=== PATIENT | female | born 1940 | race Caucasian/White ===

== ENCOUNTER 2019-03-14 18:31 | Emergency (ER) | payer OTHER ==
--- OUTSIDE RECORDS SUMMARY | 2019-03-14 18:34 | XMS REPORT | Clinical Summary ---
:1940 Author Organization [facility] Address [address] [place] [address] Care Team Providers Name Role Phone Albino Hancock MD Primary Care Provider Allergies Active Allergy Reactions Severity Noted Date Comments Beef Containing Products 08/09/2018 [place] 08/09/2018 Lactase 08/09/2018 Gluten GI Intolerance 08/09/2018 Shrimp 08/09/2018 Medications Medication Sig Dispensed Refills Start End Status Date Date levothyroxine Take 50 mcg 0 Active (SYNTHROID, LEVOXYL) 50 by mouth mcg tablet daily. clopidogrel (PLAVIX) 75 Take 75 mg by 0 Active mg tablet mouth daily. omega-3 acid ethyl Take 1 g by 0 Active esters (LOVAZA) 1 gram mouth 2 (two) capsule times a day. simvastatin (ZOCOR) 40 Take 40 mg by 0 Active MG tablet mouth nightly. escitalopram (LEXAPRO) Take 5 mg by 0 Active 5 MG tablet mouth every evening. ALPRAZolam (XANAX) 0.25 Take 0.25 mg 0 Active MG tablet by mouth nightly as needed for anxiety. loratadine (CLARITIN) Take 10 mg by 0 Active 10 mg tablet mouth daily. acetaminophen-codeine Take 1 tablet 0 Active (TYLENOL WITH CODEINE by mouth #3) 300-30 mg per every 4 tablet (four) hours as needed for moderate pain. gabapentin (NEURONTIN) Take 100 mg 0 Active 100 mg capsule by mouth daily as needed. Lactobacillus Take 1 0 Active acidophilus (PROBIOTIC capsule by ORAL) mouth 2 (two) times a day. fesoterodine (TOVIAZ) 4 Take 1 tablet 0 Active mg tablet extended by mouth release 24 hr every morning. glucosamine Take 1 tablet 0 Active HCl/chondroitin sainz by mouth 2 (GLUCOSAMINE-CHONDROITI (two) times a N ORAL) day. calcium carbonate Take 1,200 mg 0 Active (OS-JEN) 600 mg calcium by mouth (1,500 mg) tablet daily. alendronate (FOSAMAX) Take 70 mg by mouth every 7 days. Take in the morning with a full glass of water on an empty stomach, do NOT take anything else by mouth or lie down for the next 30 min. 0 Active 70 MG tablet On metoprolol succinate XL Take 50 mg by 0 Active (TOPROL-XL) 50 mg 24 hr mouth every tablet evening. multivitamin Take 1 tablet 0 Active (THERAGRAN) tablet by mouth daily. VITAMIN B COMPLEX ORAL Take 1 0 Active capsule by 5 mouth daily. magnesium oxide 500 mg Take 1 tablet 0 Active tablet by mouth daily. acetaminophen (TYLENOL) Take 500 mg 0 Discontinued 500 MG tablet by mouth 019 (Error) every 6 (six) hours as needed for mild pain. Pt no longer takes hydroCHLOROthiazide Take 25 mg by 0 Discontinued (HYDRODIURIL) 25 MG mouth daily. 019 (Stop Taking at tablet Discharge) lisinopril Take 40 mg by 0 Discontinued (PRINIVIL,ZESTRIL) 40 mouth daily. 019 (Stop Taking at mg tablet Discharge) microfibrillar collagen Apply 0 Discontinued (AVITENE) powder topically as 019 (Med List needed for Cleanup) wound care. metoprolol tartrate Take 50 mg by 0 Discontinued (LOPRESSOR) 50 mg mouth 2 (two) 019 (Med List tablet times a day. Cleanup) tiZANidine (ZANAFLEX) 2 Take 2 mg by 0 Discontinued MG tablet mouth every 8 019 (Med List (eight) hours Cleanup) as needed for muscle spasms. acyclovir (ZOVIRAX) 800 Take 800 mg 0 Discontinued MG tablet by mouth 2 019 (Med List (two) times a Cleanup) day. clonIDINE (CATAPRES) Take 0.1 mg 0 Discontinued 0.1 MG tablet by mouth 019 (Stop Taking at daily as Discharge) needed for high blood pressure. meclizine (ANTIVERT) Take 12.5 mg 0 Discontinued 12.5 mg tablet by mouth 3 019 (Error) (three) times a day as needed for dizziness. Pt no longer takes tiZANidine (ZANAFLEX) 4 Take 4 mg by 0 Discontinued MG tablet mouth nightly 019 (Stop Taking at as needed Discharge) (sleep). lisinopril Take 1 tablet 30 tablet 0 (PRINIVIL,ZESTRIL) 5 mg (5 mg total) 9 019 tablet by mouth daily for 30 days. Active Problems Problem Noted Date Syncope 08/09/2018 Vertigo 02/20/2017 Essential hypertension 02/20/2017 Encounters Date Type Specialty Care Team Description 08/11/2018 Patient Outreach Quality Jolanta Joy RN 08/09/2018 - Hospital Encounter General Internal [facility] Syncope, unspecified syncope type (Primary Dx); 08/11/2018 Medicine [place], Closed fracture of one rib of left side , initial encounter Svetlana Miguel MD 08/09/2018 Travel after 03/13/2018 Social History Tobacco Use Types Packs/Day Years Used Date Never Smoker Smokeless Tobacco: Never Used Alcohol Use Drinks/Week oz/Week Comments No Sex Assigned at Date Recorded Not on file Job Start Date Occupation Industry Not on file Not on file Not on file Travel History Travel Start Travel End No recent travel history available. Last Filed Vital Signs Vital Sign Reading Time Taken Comments Blood Pressure 129/54 08/11/2018 3:00 PM SHOTBLAST OPERATOR Pulse 58 08/11/2018 3:00 PM SHOTBLAST OPERATOR Temperature 36.6 C (97.8 F) 08/11/2018 11:41 AM SHOTBLAST OPERATOR Respiratory Rate 18 08/11/2018 11:41 AM SHOTBLAST OPERATOR Oxygen Saturation 94% 08/11/2018 11:41 AM SHOTBLAST OPERATOR Inhaled Oxygen Concentration - - Weight 60.8 kg (134 lb) 08/09/2018 6:42 PM SHOTBLAST OPERATOR Height 162.6 cm (5' 4") 08/09/2018 6:42 PM SHOTBLAST OPERATOR Body Mass Index 23 08/09/2018 6:42 PM SHOTBLAST OPERATOR Plan of Treatment Health Maintenance Due Date Last Done Comments SHINGLES VACCINES (#1) 1988 65+ PNEUMOCOCCAL VACCINE (2 of 2 - 2003 05/31/2015, 07/01/2002 PPSV23) INFLUENZA VACCINE 01/29/2019 04/12/2017, 03/16/2016, 03/01/2015 Procedures Procedure Name Priority Date/Time Associated Comments Diagnosis ESTIMATED GFR Routine 08/11/2018 3:49 Results for this AM SHOTBLAST OPERATOR procedure are in the results section. COMPREHENSIVE METABOLIC Routine 08/11/2018 3:49 Results for this PANEL AM SHOTBLAST OPERATOR procedure are in the results section. HC COMPLETE BLD COUNT Routine 08/11/2018 3:49 Results for this W/AUTO DIFF AM SHOTBLAST OPERATOR procedure are in the results section. ESTIMATED GFR Routine 08/10/2018 4:32 Results for this AM SHOTBLAST OPERATOR procedure are in the results section. COMPREHENSIVE METABOLIC Routine 08/10/2018 4:32 Results for this PANEL AM SHOTBLAST OPERATOR procedure are in the results section. HC COMPLETE BLD COUNT Routine 08/10/2018 4:32 Results for this W/AUTO DIFF AM SHOTBLAST OPERATOR procedure are in the results section. ECG 12-LEAD Routine 08/09/2018 8:49 Results for this PM SHOTBLAST OPERATOR procedure are in the results section. TROPONIN Timed 08/09/2018 7:19 Results for this PM SHOTBLAST OPERATOR procedure are in the results section. URINALYSIS SCREEN AND Routine 08/09/2018 6:25 Results for this MICROSCOPY, WITH REFLEX PM SHOTBLAST OPERATOR procedure are in TO CULTURE the results section. URINE CULTURE Routine 08/09/2018 6:25 Results for this PM SHOTBLAST OPERATOR procedure are in the results section. ECG 12-LEAD Routine 08/09/2018 4:38 Results for this PM [employer]OTBLAST OPERATOR procedure are in the results section. TROPONIN Timed 08/09/2018 4:15 Results for this PM SHOTBLAST OPERATOR procedure are in the results section. ECG ED PRELIMINARY Routine 08/09/2018 11:53 Results for this INTERPRETATION AM SHOTBLAST OPERATOR procedure are in the results section. XR RIBS W PA CHEST LEFT STAT 08/09/2018 11:22 Results for this AM SHOTBLAST OPERATOR procedure are in the results section. CT CERVICAL SPINE WO STAT 08/09/2018 11:00 Results for this CONTRAST AM SHOTBLAST OPERATOR procedure are in the results section. CT HEAD WO CONTRAST STAT 08/09/2018 11:00 Results for this AM SHOTBLAST OPERATOR procedure are in the results section. PARTIAL THROMBOPLASTIN Routine 08/09/2018 10:35 Results for this TIME (PTT) AM SHOTBLAST OPERATOR procedure are in the results section. PROTHROMBIN TIME WITH Routine 08/09/2018 10:35 Results for this INR AM SHOTBLAST OPERATOR procedure are in the results section. ESTIMATED GFR Routine 08/09/2018 10:35 Results for this AM SHOTBLAST OPERATOR procedure are in the results section. TROPONIN Routine 08/09/2018 10:35 Results for this AM SHOTBLAST OPERATOR procedure are in the results section. COMPREHENSIVE METABOLIC Routine 08/09/2018 10:35 Results for this PANEL AM SHOTBLAST OPERATOR procedure are in the results section. HC COMPLETE BLD COUNT Routine 08/09/2018 10:35 Results for this W/AUTO DIFF AM SHOTBLAST OPERATOR procedure are in the results section. ECG 12-LEAD STAT 08/09/2018 10:21 Results for this AM SHOTBLAST OPERATOR procedure are in the results section. after 03/13/2018 Results Estimated GFR (08/11/2018 3:49 AM SHOTBLAST OPERATOR)Only the most recent of3 resultswithin the time period is included. [facility] Estimated GFR 86 mL/min/1.73 [facility] Comment: m2 [facility] CatergoryUnitsInterpretation G1 >=90 Normal or high G2 60-89Mildly decreased [id number] to moderately decreased [id number] to severely decreased G4 15-29Severely decreased G5 <15Kidney failure The eGFR was calculated using the Chronic Kidney Disease Epidemiology Collaboration (CKD-EPI) equation. Interpretation is based on recommendations of the National Kidney Foundation-Kidney Disease Outcomes Quality Initiative (NKF-KDOQI) published in 2014. Specimen Plasma specimen Performing Organization Address City/State/Zipcode Phone Number [facility] DEPARTMENT OF PATHOLOGY AND [address] [place] [address] [facility] [address] [place] [address] CBC with platelet and differential (08/11/2018 3:49 AM SHOTBLAST OPERATOR)Only the most recent of3 resultswithin the time period is included. [facility] WBC 6.65 4.50 - 11.00 [facility] k/uL [facility] RBC 3.61 (L) 4.20 - 5.50 [facility] m/uL [facility] HGB 11.4 (L) 12.0 - 16.0 [facility] g/dL [facility] HCT 34.9 (L) 37.0 - 47.0 % [facility] MCV 96.7 82.0 - 100.0 fL [facility] MCH 31.6 27.0 - 34.0 pg [facility] MCHC 32.7 31.0 - 37.0 [facility] g/dL [facility] RDW - SD 45.2 37.0 - 55.0 fL [facility] MPV 11.2 8.8 - 13.2 fL [facility] Platelet count 209 150 - 400 k/uL [facility] Neutrophils 62.6 39.0 - 69.0 % [facility] Lymphocytes 26.5 25.0 - 45.0 % [facility] Monocytes 9.5 0.0 - 10.0 % [facility] Eosinophils 0.9 0.0 - 5.0 % [facility] Basophils 0.3 0.0 - 1.0 % [facility] Immature granulocytes 0.2 0.0 - 1.0 % [facility] Specimen Blood Performing Organization Address City/State/Zipcode Phone Number [facility] OF [facility] [address] [place] [address] [facility] [address] [place] [address] Comprehensive metabolic panel (08/11/2018 3:49 AM SHOTBLAST OPERATOR)Only the most recent of3 resultswithin the time period is included. Sodium 135 135 - 148 mEq/L [facility] Potassium 4.3 3.5 - 5.0 mEq/L [facility] Chloride 100 99 - 109 mEq/L [facility] CO2 24 24 - 31 mEq/L [facility] Anion gap 11@ANIO 7 - 15 mEq/L [facility] BUN 10 8 - 24 mg/dL [facility] Creatinine 0.60 0.50 - 0.90 [facility] mg/dL [facility] Glucose 95 65 - 99 mg/dL [facility] Calcium 8.4 (L) 8.6 - 10.6 mg/dL [facility] Protein 6.0 (L) 6.3 - 8.2 g/dL [facility] Albumin 2.9 (L) 3.5 - 5.0 g/dL [facility] A/G ratio 0.9 0.7 - 3.8 [facility] Alkaline phosphatase 41 30 - 115 U/L [facility] AST 33 15 - 46 U/L [facility] ALT 13 10 - 55 U/L [facility] Total bilirubin 0.3 0.2 - 1.2 mg/dL [facility] Specimen Plasma specimen Performing Organization Address City/State/Zipcode Phone Number [facility] DEPARTMENT OF PATHOLOGY AND [id number] [place] [address] [facility] [address] [place] [address] ECG 12 lead (08/09/2018 8:49 PM SHOTBLAST OPERATOR)Only the most recent of3 resultswithin the time period is included. Pathologist [facility] Ventricular rate 64 [facility] Atrial rate 64 [facility] [place] interval 182 [facility] QRSD interval 144 [facility] QT interval 464 [facility] QTC interval 478 [facility] P axis 1 75 [facility] QRS axis 1 -11 [facility] T wave axis 136 [facility] EKG impression Normal sinus [facility] rhythm-Possible Left atrial enlargement-Left bundle branch block-Abnormal ECG-In automated comparison with ECG of 09-AUG-2018 16:38,-No significant change was found- Specimen Narrative Performed At Performing Organization Address City/[facility]/Zipcode Phone Number [facility] MUSE [address] [place] [address] Troponin (08/09/2018 7:19 PM SHOTBLAST OPERATOR)Only the most recent of3 resultswithin the time period is included. [facility] Troponin <0.10 0.00 - 0.10 [facility] Comment: ng/mL [facility] 0.11 - 1.49 ng/mlMay indicate increased risk of acute coronary syndrome. >=1.5 ng/mlConsistent with acute myocardial infarction. The diagnostic value of a single normal or non-diagnostic result is questionable.Serial samples at 2-6 hour intervals are required to rule out acute myocardial injury. Specimen Plasma specimen Performing Organization Address City/State/Zipcode Phone Number [facility] DEPARTMENT OF PATHOLOGY AND [address] [place] [address] [facility] [address] [place] [address] Urinalysis screen and microscopy, with reflex to culture (08/09/2018 6:25 PM SHOTBLAST OPERATOR) Pathologist [facility] Specimen site Clean catch [facility] Color, UA Yellow [facility] Appearance, UA Hazy [facility] Specific gravity, 1.010 1.001 - 1.035 [facility] pH, UA 6.0 5.0 - 8.5 [facility] Protein, UA Negative Negative [facility] Glucose, UA Negative Negative [facility] Ketones, UA Trace (A) Negative [facility] Bilirubin, UA Negative Negative [facility] Blood, UA Negative Negative [facility] Nitrite, UA Negative Negative [facility] Urobilinogen, UA <2.0 <2.0 [facility] Leukocyte esterase, Negative Negative [facility] WBC, UA 1 0 - 4 /HPF [facility] RBC, UA 3 0 - 5 /HPF [facility] Bacteria, UA None seen None seen [facility] Yeast, UA None seen [facility] Yeast with None seen [facility] pseudohyphae, [facility] Specimen Urine Performing Organization Address City/[facility] Phone Number [facility] DEPARTMENT OF PATHOLOGY AND [address] [place] [address] Urine culture (08/09/2018 6:25 PM SHOTBLAST OPERATOR) Urine culture SEE COMMENTComment: [facility] Bacteriuria screen [facility] negative. Specimen Performing Organization Address City/[facility] Phone Number [facility] DEPARTMENT OF PATHOLOGY AND [id number] [place] [address]. [place] [address] ECG ED Preliminary Interpretation - Not an Order (08/09/2018 11:53 AM SHOTBLAST OPERATOR) Narrative Performed At Ruma Pendleton MD 08/11/20188:04 AM ECG ED Preliminary Interpretation - Not an Order Performed by: Ruma Pendleton MD Authorized by: Ruma Pendleton MD ECG reviewed by ED Physician in the absence of a parts clerk: yes Rate: ECG rate:59 Rhythm: Rhythm: sinus bradycardia QRS: QRS axis:Normal QRS intervals:Normal Conduction: Conduction: abnormal Abnormal conduction: complete LBBB ST segments: ST segments:Non-specific T waves: T waves: non-specific XR Ribs W Pa Chest Left (08/09/2018 11:22 AM SHOTBLAST OPERATOR) Specimen Narrative Performed At EXAMINATION:XR RIBS W PA CHEST LEFT [facility] CLINICAL HISTORY:fall trauma COMPARISON:none. IMPRESSION: 1.The left lateral seventh rib show a mild area of cortical step off, probably indicating a nondisplaced fracture and should be correlated. No other rib fractures are noted. No pneumothorax seen. 2.Lungs are clear. There is osteopenia. Aortic vascular calcifications are seen. [facility]-[id number] Procedure Note Hm Interface, Radiology Results Incoming - 08/09/2018 11:30 AM SHOTBLAST OPERATOR EXAMINATION: XR RIBS W PA CHEST LEFT CLINICAL HISTORY: fall trauma COMPARISON: none. IMPRESSION: 1. The left lateral seventh rib show a mild area of cortical step off, probably indicating a nondisplaced fracture and should be correlated. No other rib fractures are noted. No pneumothorax seen. 2. Lungs are clear. There is osteopenia. Aortic vascular calcifications are seen. [facility]-[id number] Performing Organization Address City/State/Zipcode Phone Number [facility] [address] [place] [address] CT Cervical Spine Wo Contrast (08/09/2018 11:00 AM SHOTBLAST OPERATOR) Specimen Narrative Performed At EXAMINATION:CT CERVICAL SPINE WO CONTRAST [facility] CLINICAL HISTORY:trauma TECHNIQUE: Multiple axial CT images of the cervical spine are obtained without the use of intravenous contrast. Coronal and sagittal 3-D reconstructions are obtained. CT scans are performed using radiation dose reduction techniques.Technical factors are evaluated and adjusted to ensure appropriate moderation of exposure.Automated dose management technology is applied to adjust radiation exposure while achieving a diagnostic quality image. COMPARISON:None. DOSE (DLP):246.10 mGy.cm. DISCUSSION: Retrolisthesis of C3 over C4. Alignment of the anterior, posterior and spinolaminar lines of the cervical spine are within normal limits. There is no evidence of fractures, dislocations, or destructive bony lesions. Negative for fracture of occipital condyles or dislocation of atlantooccipital joints. The pre and paravertebral soft tissues are unremarkable. Ligament, spinal cord, and/or vascular abnormalities cannot be excluded on the basis of this examination. Multilevel degenerative changes are noted within the cervical spine. Evaluation of individual levels demonstrates the following findings: - C2-C3: Loss of disc height. Both facet arthropathy. The central canal and neuroforamina are patent. - C3-C4: Loss of disc height and retrolisthesis of C3 over C4. Bilateral uncovertebral and facet arthropathy resulting in moderate neural foraminal stenosis. The central canal is patent. - C4-C5: Anterior spondylosis. Central canal and neuroforamina are patent. - C5-C6: Anterior spondylosis. Right uncovertebral and facet arthropathy resulting in mild narrowing of the right neural foramen. The central canal left neuroforamen are patent. - C6-C7: Anterior spondylosis. The central canal and neuroforamina are patent. - C7-T1: Right facet arthropathy. The central canal and neuroforamina are patent IMPRESSION: 1.No CT evidence for acute trauma. 2.Multilevel degenerative changes, uncovertebral and facet arthropathy resulting in mild neural foraminal stenosis. 3. Degenerative retrolisthesis of C3 over C4. [facility]-[id number] Procedure Note Hm Interface, Radiology Results Incoming - 08/09/2018 11:18 AM SHOTBLAST OPERATOR EXAMINATION: CT CERVICAL SPINE WO CONTRAST CLINICAL HISTORY: trauma TECHNIQUE: Multiple axial CT images of the cervical spine are obtained without the use of intravenous contrast. Coronal and sagittal 3-D reconstructions are obtained. CT scans are performed using radiation dose reduction techniques. Technical factors are evaluated and adjusted to ensure appropriate moderation of exposure. Automated dose management technology is applied to adjust radiation exposure while achieving a diagnostic quality image. COMPARISON: None. DOSE (DLP): 246.10 mGy.cm. DISCUSSION: Retrolisthesis of C3 over C4. Alignment of the anterior, posterior and spinolaminar lines of the cervical spine are within normal limits. There is no evidence of fractures, dislocations, or destructive bony lesions. Negative for fracture of occipital condyles or dislocation of atlantooccipital joints. The pre and paravertebral soft tissues are unremarkable. Ligament, spinal cord, and/or vascular abnormalities cannot be excluded on the basis of this examination. Multilevel degenerative changes are noted within the cervical spine. Evaluation of individual levels demonstrates the following findings: - C2-C3: Loss of disc height. Both facet arthropathy. The central canal and neuroforamina are patent. - C3-C4: Loss of disc height and retrolisthesis of C3 over C4. Bilateral uncovertebral and facet arthropathy resulting in moderate neural foraminal stenosis. The central canal is patent. - C4-C5: Anterior spondylosis. Central canal and neuroforamina are patent. - C5-C6: Anterior spondylosis. Right uncovertebral and facet arthropathy resulting in mild narrowing of the right neural foramen. The central canal left neuroforamen are patent. - C6-C7: Anterior spondylosis. The central canal and neuroforamina are patent. - C7-T1: Right facet arthropathy. The central canal and neuroforamina are patent IMPRESSION: 1. No CT evidence for acute trauma. 2. Multilevel degenerative changes, uncovertebral and facet arthropathy resulting in mild neural foraminal stenosis. 3. Degenerative retrolisthesis of C3 over C4. [facility]-[id number] Performing Organization Address City/State/Zipcode Phone Number [facility] [address] [place] [address] CT Head Wo Contrast (08/09/2018 11:00 AM SHOTBLAST OPERATOR) Specimen Narrative Performed At EXAMINATION: CT HEAD WO CONTRAST [facility] CLINICAL HISTORY: traumaSyncope COMPARISON: December 27, 2017 TECHNIQUE: Noncontrast enhanced images of the brain were obtained from the skull base to the vertex. Both soft tissue and bone reconstruction algorithms were performed. CT scans are performed using radiation dose reduction techniques.Technical factors are evaluated and adjusted to ensure appropriate moderation of exposure.Automated dose management technology is applied to adjust radiation exposure while achieving a diagnostic quality image. DOSE (DLP):1073.82 mGy.cm FINDINGS: The ventricles, sulci and CSF-containing spaces are normal size and configuration. Small hypodense areas seen within the supratentorial white matter without associated vasogenic edema. The kelly-white matter interface is within normal limits. There is no evidence of mass, hemorrhage or extraaxial fluid collection.There is no evidence of midline shift or brain herniation. Atherosclerotic calcifications at the carotid siphons and intradural segments of the vertebrals. There is no other macrostructural abnormalities within the cerebral hemispheres, basal ganglia, brainstem or cerebellum. The visualized bony structures are unremarkable. Mucosal thickening of the paranasal sinuses. Mastoid air cells and orbits are grossly unremarkable. IMPRESSION: 1. Negative for acute intracranial abnormality, mass, hemorrhage, extra-axial fluid collection or hydrocephalus. 2. Diffuse and symmetric enlargement of the ventricles and sulci consistent with age-related brain volume loss. 3. Small hypodense areas seen within the supratentorial white matter. This is a nonspecific most likely represents chronic microangiopathic ischemic changes. [facility]-[id number] Procedure Note Interface, Radiology Results Incoming - 08/09/2018 11:06 AM SHOTBLAST OPERATOR EXAMINATION: CT HEAD WO CONTRAST CLINICAL HISTORY: trauma Syncope COMPARISON: December 27, 2017 TECHNIQUE: Noncontrast enhanced images of the brain were obtained from the skull base to the vertex. Both soft tissue and bone reconstruction algorithms were performed. CT scans are performed using radiation dose reduction techniques. Technical factors are evaluated and adjusted to ensure appropriate moderation of exposure. Automated dose management technology is applied to adjust radiation exposure while achieving a diagnostic quality image. DOSE (DLP): 1073.82 mGy.cm FINDINGS: The ventricles, sulci and CSF-containing spaces are normal size and configuration. Small hypodense areas seen within the supratentorial white matter without associated vasogenic edema. The kelly-white matter interface is within normal limits. There is no evidence of mass, hemorrhage or extraaxial fluid collection. There is no evidence of midline shift or brain herniation. Atherosclerotic calcifications at the carotid siphons and intradural segments of the vertebrals. There is no other macrostructural abnormalities within the cerebral hemispheres , basal ganglia, brainstem or cerebellum. The visualized bony structures are unremarkable. Mucosal thickening of the paranasal sinuses. Mastoid air cells and orbits are grossly unremarkable. IMPRESSION: 1. Negative for acute intracranial abnormality, mass, hemorrhage, extra-axial fluid collection or hydrocephalus. 2. Diffuse and symmetric enlargement of the ventricles and sulci consistent with age-related brain volume loss. 3. Small hypodense areas seen within the supratentorial white matter. This is a nonspecific most likely represents chronic microangiopathic ischemic changes. [facility] [id number] Performing Organization Address City/State/Zipcode Phone Number [facility] [address] [place] [address] Partial thromboplastin time, activated (08/09/2018 10:35 AM SHOTBLAST OPERATOR) PTT 25.5 23.0 - 36.0 [facility] Comment: [facility] PTT therapeutic range for unfractionated heparin is 61.0-112.0 seconds which corresponds to Anti-Xa 0.3-0.7 U/ml. Specimen Blood Performing Organization Address City/[facility]/Zipcode Phone Number [facility] DEPARTMENT OF PATHOLOGY AND [id number] [place] [address] 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 An INR of 2.0-3.0 is suggested for deep vein thrombosis/pulmonary embolism. Specimen Blood Performing Organization Address City/State/Zipcode Phone Number [facility] DE[facility] OF PATHOLOGY AND [address] [place] [address] [facility] [address] [place] [address] after 03/13/2018 Advance Directives For more information, please contact: [phone] Type Date Recorded Patient Presales Engineer Explanation Advance Directives, 12/07/2015 3:40 PM Living Will and Medical Power of Chisel Grinder Advance Directives, 12/14/2015 1:10 PM Living Will and Medical Power of Chisel Grinder Advance Directives, 02/19/2017 10:50 PM Living Will and Medical Power of [employer]isel [employer] Advance Directives, 12/27/2017 2:42 PM Living Will and Medical Power of Chisel Grinder
--- OUTSIDE RECORDS SUMMARY | 2019-03-14 18:39 | XMS REPORT | Continuity of Care Document ---
:1940 Author Organization [employer] Care Team Providers Name Role Phone [employer] Unavailable Unavailable Problems Problem Status Onset Classification Date Comments Source Date Reported Peripheral 01/08/20 Diagnosis 01/07/2019 [facility] neuropathic pain 19 Family Practice Herpes zoster 11/29/19 Diagnosis 11/28/2018 [facility] 19 Family Practice Ankle pain 11/29/19 Diagnosis 11/28/2018 [facility] 19 Family Practice Herpes labialis 11/22/19 Diagnosis 11/28/2018 [facility] 19 Family Practice Pain of left 11/07/19 Diagnosis 11/28/2018 [facility] shoulder joint 19 [facility] patient 11/07/19 Diagnosis 11/28/2018 [place] [id number] [facility] Fracture of rib 11/07/19 Diagnosis 11/28/2018 [facility] 19 Family Practice Gastroesophageal 09/23/19 Diagnosis 09/22/2018 [facility] reflux disease 19 Family without esophagitis Practice Lightheadedness 09/09/19 Diagnosis 09/22/2018 [facility] 19 Family Practice Screening 09/09/19 Diagnosis 09/22/2018 [facility] mammography 19 Family Practice Diastolic heart 08/07/19 Diagnosis 08/07/2018 [facility] 19 Family Practice Chest pain 08/07/19 Diagnosis 08/07/2018 [place] [address] [facility] Rib pain 08/07/19 Diagnosis 08/07/2018 [facility] 19 Family Practice Peripheral vascular 01/23/20 Problem 01/07/2019 [facility] Peripheral Vascular 01/23/20 Problem 11/28/2018 [facility] Disease [facility] Abdominal bloating 10/15/19 Diagnosis 10/15/2017 [facility] Pain in axilla 09/27/19 Diagnosis 10/15/2017 [facility] Visual discomfort 09/27/19 Diagnosis 10/15/2017 [facility] Neck pain 09/10/19 Diagnosis 10/15/2017 [facility] Benign paroxysmal 09/10/19 Diagnosis 10/15/2017 [facility] positional vertigo 18 Family Practice Hyponatremia 09/03/19 Diagnosis 10/15/2017 [facility] Chronic back pain 09/03/19 Problem 01/07/2019 [facility] Chronic Back Pain 09/03/19 Problem 11/28/2018 [facility] Mixed anxiety and 07/29/19 Diagnosis 10/15/2017 [facility] depressive disorder 18 [facility] Diarrhea 07/29/19 Diagnosis 10/15/2017 [facility] Allergic 07/08/19 Diagnosis 10/15/2017 [facility] conjunctivitis 18 [facility] Persistent cough 07/03/19 Problem 01/07/2019 [facility] Persistent Cough 07/03/19 Problem 11/28/2018 [facility] Left Bundle Branch 05/26/20 Problem 11/28/2018 [facility] Carotid 05/26/20 Problem 11/28/2018 [facility] Atherosclerosis [facility] Left bundle branch 05/26/20 Problem 01/07/2019 [facility] Carotid 05/26/20 Problem 01/07/2019 [facility] atherosclerosis 17 [facility] Screening for 05/15/20 Diagnosis 10/15/2017 [facility] osteoporosis 17 [facility] Advance directive 05/15/20 Diagnosis 10/15/2017 [facility] discussed with 17 Family patient Practice Depression 05/15/20 Diagnosis 10/15/2017 [facility] screening 17 [facility] Acute upper 05/06/20 Diagnosis 10/15/2017 [facility] respiratory 17 [facility] infection Practice Acute pharyngitis 04/26/20 Diagnosis 10/15/2017 [facility] Vertigo 03/27/20 Problem 01/07/2019 [facility] Orthostatic 02/19/20 Diagnosis 10/15/2017 [facility] hypotension 17 [facility] Mild memory 02/19/20 Problem 01/07/2019 [facility] disturbance [facility] Mild Memory 02/19/20 Problem 11/28/2018 [facility] Disturbance [facility] Simple renal cyst 01/05/20 Diagnosis 10/15/2017 [facility] Abdominal pain 12/12/19 Diagnosis 10/15/2017 [facility] Pain in toe 11/15/19 Diagnosis 10/15/2017 [facility] Pain in Toe 11/15/19 Problem 10/15/2017 [facility] Low back pain 10/31/19 Diagnosis 10/15/2017 [facility] Allergic rhinitis 10/27/19 Diagnosis 10/15/2017 [facility] Ingrowing nail 09/25/19 Diagnosis 10/15/2017 [facility] Ingrowing Nail 09/24/19 Problem 10/15/2017 [facility] WOUND Active 07/01/19 [facility] Rectal polyp 06/19/20 Diagnosis 10/15/2017 [facility] Open wound 06/19/20 Diagnosis 10/15/2017 [facility] 16 Family Practice Fatigue 06/19/20 Diagnosis 10/15/2017 [facility] Anxiety state 05/29/20 Problem 01/07/2019 [facility] Anxiety State 05/29/20 Problem 11/28/2018 [facility] 16 Family Practice Glaucoma screening 05/21/20 Diagnosis 10/15/2017 [facility] 16 Family Practice 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 01/07/2019 [facility] of spine 16 Family Practice Scoliosis Deformity 05/21/20 Problem 11/28/2018 [facility] of Spine 16 Family Practice 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 Practice Senile 05/03/20 Problem 11/28/2018 [facility] Hyperkeratosis 16 Family Practice Senile 05/03/20 Problem 01/07/2019 [facility] hyperkeratosis 16 Family Practice Immunization 04/26/20 Diagnosis 10/15/2017 [facility] 16 Family Practice Body mass index 04/26/20 Problem 01/07/2019 [facility] 20-24 - normal 16 Family Practice Body Mass Index 04/26/20 Problem 11/28/2018 [facility] 20-24 - Normal 16 Family Practice Cervical 04/09/20 Diagnosis 10/15/2017 [facility] radiculopathy 16 Family Practice 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 16 Family Practice Mitral Valve 03/30/20 Problem 11/28/2018 [facility] Disorder 16 Family Practice Inflamed seborrheic 03/16/20 Diagnosis 10/15/2017 [facility] keratosis 16 Family Practice Irritable bowel 02/20/20 Diagnosis 10/15/2017 [facility] syndrome 16 Family Practice Ingrowing toenail 02/20/20 Diagnosis 10/15/2017 [facility] 16 Family Practice 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 Problem 01/07/2019 [facility] disease of colon 16 Family Practice 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 Problem 11/28/2018 [facility] Disease of Colon 16 Family Practice Dehiscence of 12/21/19 Problem 10/15/2017 [facility] Surgical Wound 16 Family Practice Idiopathic Colitis 10/12/19 Problem 11/28/2018 [place] [address] [facility] Practice Idiopathic colitis 10/12/19 Problem 01/07/2019 [facility] 16 Family Practice Exostosis 08/03/19 Problem 01/07/2019 [facility] 16 Family Practice Subungual Exostosis 08/03/19 Problem 11/28/2018 [facility] Subungual exostosis 08/03/19 Problem 01/07/2019 [facility] LOWER BACK PAIN Active 07/01/19 [facility] Benign hypertension 05/31/20 Problem 01/07/2019 [facility] Chronic low back 05/31/20 Problem 01/07/2019 [facility] pain 15 [facility] Hypothyroidism 05/31/20 Problem 01/07/2019 [facility] Benign Hypertension 05/31/20 Problem 11/28/2018 [facility] Chronic Low Back 05/31/20 Problem 11/28/2018 [facility] Pain [facility] Osteoporosis 05/31/20 Problem 01/07/2019 [facility] History of 05/31/20 Problem 11/28/2018 [facility] Cerebrovascular 15 Family Accident Practice History of 05/31/20 Problem 01/07/2019 [facility] cerebrovascular 15 Family accident Practice Constipation, Active Problem 11/05/2018 [facility] Screening for colon Active Problem 11/05/2018 [facility] Irritable bowel Active Problem 11/05/2018 [facility] Right lower Active Problem 11/05/2018 [facility] pain [facility] Personal history of Active Problem 11/05/2018 [facility] colonic polyps [facility] Bloating Active Problem 11/05/2018 [facility] Abnormal weight Active Diagnosis 08/12/2016 [facility] Urge incontinence Active Problem 01/02/2019 [facility] Urinary urgency Active Problem 01/02/2019 [facility] Urge incontinence Active Problem 02/06/2019 [facility] of urine (finding) Group Urgent desire to Active Problem 02/06/2019 [facility] urinate (finding) Group Medications Medication Details Route Status Patient Ordering Order Source Instructions Provider Date oxybutynin 10 mg 10 mg=1 tab, Active Medical oral tablet, PO, Daily, # 30 2018 Group extended release tab, 11 Refill(s), Pharmacy: [facility] [id number] HR Fesoterodine 4 mg=1 tab, PO, Active Medical Fumarate 4 MG Daily, # 90 2019 Group Extended Release tab, 3 Tablet [Toviaz] Refill(s), Pharmacy: [facility] [id number] 24 HR mirabegron 50 mg=1 tab, Active Medical 50 MG Extended PO, Daily, # 30 2018 Group Release Tablet tab, 11 [Myrbetriq] Refill(s), Pharmacy: [facility] [id number] 24 HR Fesoterodine 4 mg=1 tab, PO, No Medical Fumarate 4 MG Daily, # 90 Longer 2018 Group Extended Release tab, 3 Active Tablet [Toviaz] Refill(s), Pharmacy: [facility] [id number] 24 HR mirabegron 50 mg=1 tab, Active Medical 50 MG Extended PO, Daily, # 28 2018 Group Release Tablet tab, 0 [Myrbetriq] Refill(s), given to patient lisinopril 10 mg 10 mg=1 tab, Active Medical oral tablet PO, Daily, # 90 2018 Group tab, 1 Refill(s) Hydrochlorothiazid 25 mg=1 tab, Active Medical e 25 MG Oral PO, Daily, # 90 2018 Group Tablet tab, 1 Refill(s) escitalopram 5 mg 10 mg=2 tab, Active Medical oral tablet PO, Daily, 0 2018 Group Refill(s) metoprolol 50 mg=1 cap, Active Medical succinate 50 mg PO, Daily, 0 2018 Group oral capsule, Refill(s) extended release simvastatin 40 mg 40 mg=1 tab, Active Medical oral tablet PO, Bedtime, # 2018 Group 90 tab, 0 Refill(s) Alendronic acid 70 70 mg=1 tab, Active Medical MG Oral Tablet PO, 0 Refill(s) 2018 Group clopidogrel 75 mg 75 mg=1 tab, Active Medical oral tablet PO, Daily, # 90 2018 Group tab, 3 Refill(s) Probiotic Formula PO, Daily, 0 Active Medical Refill(s) 2018 Group levothyroxine 50 50 microgram=1 Active Medical mcg (0.05 mg) oral tab, PO, Daily, 2018 Group tablet # 90 tab, 1 Refill(s) Acyclovir 800 MG acyclovir 800 Active [facility] Oral Tablet mg tablet Take 2018 Family 1 tablet as Practice needed by oral route for 10 days. Lisinopril 30 MG lisinopril 30 Active [facility] Oral Tablet mg tablet 2018 Family Practice Loratadine 10 MG loratadine 10 Active Oral Tablet mg tablet Take 2018 Family 1 tablet every Practice day by oral route. cefdinir 300 MG cefdinir 300 mg Active [facility] Oral Capsule capsule 2018 [facility] Practice Codeine Phosphate codeine 10 Active [facility] 2 MG/ML / mg-guaifenesin 2018 [facility] Guaifenesin 20 100 mg/5 mL Practice MG/ML Oral oral liquid Solution Take 10 mL every 4 hours by oral route as needed. methylprednisolone Depo-Medrol 80 Active [facility] acetate 80 MG/ML mg/mL 2018 [facility] Injectable suspension for Practice Suspension injection Take [Depo-Medrol] 1 mL by injection route. Dexamethasone 1 neomycin-polymy Active [facility] MG/ML / Neomycin gunnar-dexameth 2018 [facility] 3.5 MG/ML / 3.5 Practice Polymyxin B 20414 mg/mL-10,000 UNT/ML Ophthalmic unit/mL-0.1% Suspension eye drops Amoxicillin 500 MG amoxicillin 500 Active [facility] Oral Capsule mg capsule 2017 [facility] Practice Amoxicillin 500 MG amoxicillin 500 Active [facility] Oral Tablet mg tablet 2018 Family Practice 1 ML Dexamethasone dexamethasone 4 Active [facility] phosphate 4 MG/ML mg/mL injection 2018 [facility] Injection solution Take 4 Practice mg every day by injection route. Fish Oil Fish Oil 1 PO Active QD 2017 Family Practice 0.5 ML influenza A Fluzone Active virus A/[place] High-Dose 2017 [facility] Navneet/2016-2018 (PF) Practice (H3N2) antigen 180 mcg/0.5 mL 0.12 MG/ML / intramuscular influenza A virus syringe A/ (H1N1) antigen 0.12 MG/ML / influenza B virus B/[place] antigen 0.12 MG/ML Prefilled Syringe [Fluzone 8090-2162] Meclizine meclizine 25 mg Active [facility] Hydrochloride 25 tablet 2017 Family MG Oral Tablet Practice Naproxen 500 MG naproxen 500 mg Active [facility] Oral Tablet tablet TAKE 1 2016 Family TABLET BY MOUTH Practice TWICE DAILY Dicyclomine dicyclomine 20 Active [facility] Hydrochloride 20 mg tablet 2017 Family MG Oral Tablet Practice gabapentin 100 MG gabapentin 100 Active [facility] Oral Capsule mg capsule 2016 [facility] Practice Lisinopril 10 MG lisinopril 10 Active Oral Tablet mg tablet 2016 Family Practice acyclovir acyclovir Active 2016 Family Practice Ciprofloxacin 500 ciprofloxacin Active MG Oral Tablet 500 mg tablet 2015 Family Practice Escitalopram 10 MG escitalopram 10 Active [facility] Oral Tablet mg tablet 2015 Family Practice Acetaminophen 325 hydrocodone 5 Active [facility] MG / Hydrocodone mg-acetaminophe 2015 [facility] Bitartrate 5 MG n 325 mg tablet Practice Oral Tablet POLYETHYLENE peg-electrolyte Active GLYCOL 3350 227349 solution 420 2015 [facility] MG / Potassium gram oral Practice Chloride 1480 MG / solution Sodium Bicarbonate 5720 MG / Sodium Chloride 20924 MG Powder for Oral Solution Sertraline 50 MG sertraline 50 Active [facility] Oral Tablet mg tablet 2015 Family Practice 0.65 ML Zostavax (PF) Active [facility] Varicella-Zoster 19,400 2015 [facility] Virus Vaccine Live unit/0.65 mL Practice ([place]) strain subcutaneous 09923 UNT/ML suspension Injection [Zostavax] magnesium Unknown NA Active as directed [facility] tizanidine 2 tab(s) orally Active 4 mg orally [facility] PRN Health Fish OIL Unknown NA Active [facility] dicyclomine 1 tab(s) orally Active 20 mg orally [facility] Vitamin B Unknown NA Active [facility] acyclovir 1 tab(s) orally Active 800 mg orally [facility] PRN [facility] clopidogrel 1 tab(s) orally Active 75 mg orally [facility] once a day Health simvastatin 1 tab(s) orally Active 40 mg orally [facility] once a day Health (at bedtime) Digestive Enzymes as directed NA Active [facility] metoprolol 1 tab(s) orally Active 50 mg orally [facility] 2 times a day Health Calcium Unknown NA Active [facility] probiotic tab Unknown NA Active [facility] lisinopril 1 tab(s) orally Active 10 mg orally [facility] once a day [facility] Glucosamine & Unknown NA Active [facility] Chondroitin with Health MSM alprazolam 1 tab(s) orally Active 0.25 mg [facility] orally PRN Health alendronate 1 tab(s) orally Active 70 mg orally [facility] once a week Health levothyroxine 1 tab(s) orally Active 50 mcg (0.05 [facility] mg) orally Health once a day [place] Q Plus as directed NA Active [facility] Vitamin C Unknown NA Active [facility] Pepsin, 500 g Unknown NA Active [facility] clonidine 1 tab(s) orally Active 0.1 mg orally [facility] PRN Health gabapentin 2 cap(s) orally Active 100 mg orally [facility] PR[facility] Acetaminophen 300 acetaminophen Active [facility] / Codeine 300 mg-codeine Family Phosphate 30 MG 30 mg tablet Practice Oral Tablet Take 1 tablet twice a day by oral route as needed for 10 days. Acyclovir 800 MG acyclovir 800 Active [facility] Oral Tablet mg tablet Take Family 1 tablet every Practice day by oral route as needed for 10 days. Alendronic acid 70 alendronate 70 Active [facility] MG Oral Tablet mg tablet TAKE Family 1 TABLET BY Practice MOUTH ONCE A WEEK Alprazolam 0.25 MG alprazolam 0.25 Active [facility] Oral Tablet mg tablet TAKE Family 1 TABLET BY Practice MOUTH DAILY NEEDED FOR ANXIETY Amoxicillin 875 MG amoxicillin 875 Active [facility] Oral Tablet mg tablet Take Family 1 tablet every Practice 12 hours by oral route. bepotastine Bepreve 1.5 % [facility] besilate 15 MG/ML eye drops [facility] Ophthalmic Practice Solution [Bepreve] Betamethasone 0.5 betamethasone Active [facility] MG/ML Topical dipropionate [facility] Cream 0.05 % topical Practice cream APPLY A THIN LAYER TO THE AFFECTED AREA(S) BY TOPICAL ROUTE ONCE DAILY Calcium 600 Calcium 600 1 Active [facility] po BID Family Practice Clonidine clonidine HCl Active [facility] Hydrochloride 0.1 0.1 mg tablet Family MG Oral Tablet Take 1 tablet Practice as needed by oral route as needed. clopidogrel 75 MG clopidogrel 75 Active [facility] Oral Tablet mg tablet TAKE Family 1 TABLET BY Practice MOUTH ONCE DAILY collagen collagen 1 po Active [facility] tid Family [facility] Escitalopram 5 MG escitalopram 5 Active [facility] Oral Tablet mg tablet TAKE Family 1 TABLET BY Practice MOUTH EVERY DAY gabapentin 100 MG gabapentin 100 Active [facility] Oral Capsule mg capsule Take Family 1 capsule 3 Practice times a day by oral route as needed for 90 days. glucosamine 125 glucosamine 125 Active [facility] mg-chondroitin 100 mg-chondroitin Family mg-cartil 40 100 mg-cartil Practice mg-collag 10 mg 40 mg-collag 10 tablet mg tablet Take by oral route. Hydrochlorothiazid hydrochlorothia Active [facility] e 25 MG Oral zide 25 mg Family Tablet tablet TAKE 1 Practice TABLET BY MOUTH EVERY DAY Levothyroxine levothyroxine Active [facility] Sodium 0.05 MG 50 mcg tablet Family Oral Tablet TAKE 1 TABLET Practice BY MOUTH EVERY DAY Lisinopril 40 MG lisinopril 40 Active [facility] Oral Tablet mg tablet TAKE Family 1 TABLET BY Practice MOUTH EVERY DAY Loratadine 10 MG loratadine 10 Active [facility] Oral Tablet mg tablet Take Family 1 tablet as Practice needed by oral route. magnesium magnesium 1 PO Active [facility] QD [facility] Meclizine meclizine 12.5 Active [facility] Hydrochloride 12.5 mg tablet Take Family MG Oral Tablet 1 tablet 3 Practice times a day by oral route for 10 days. 24 HR metoprolol metoprolol Active [facility] succinate 50 MG succinate ER 50 Family Extended Release mg Practice Oral Tablet tablet,extended release 24 hr TAKE 1 TABLET BY MOUTH ONCE DAILY 24 HR mirabegron Myrbetriq 50 mg Active [facility] 50 MG Extended tablet,extended Family Release Oral release Take 1 Practice Tablet [Myrbetriq] tablet every day by oral route. Nystatin 515241 nystatin Active [facility] UNT/ML Topical 100,000 Family Cream unit/gram Practice topical cream APPLY TO THE AFFECTED AREA(S) BY TOPICAL ROUTE 2 TIMES PER DAY Papaya Enzyme Papaya Enzyme Active [facility] tablet tablet Take 1 Family tablet as Practice needed by oral route. Probiotic Probiotic 1 PO Active [facility] QD [facility] Simvastatin 40 MG simvastatin 40 Active [facility] Oral Tablet mg tablet TAKE Family 1 TABLET BY Practice MOUTH EVERY EVENING tizanidine 4 MG tizanidine 4 mg Active [facility] Oral Tablet tablet Family Practice 24 HR Fesoterodine Toviaz 4 mg Active [facility] Fumarate 4 MG tablet,extended Family Extended Release release Take 1 Practice Oral Tablet tablet every [Toviaz] day by oral route for 30 days. Tylenol Tylenol 1 PO QD Active [facility] vitamin B complex vitamin B Active [facility] complex 1 PO QD Family Practice Lisinopril 20 MG lisinopril 20 Active [facility] Oral Tablet mg tablet Take Family 1 tablet every Practice day by oral route. valacyclovir 1000 valacyclovir 1 Active [facility] MG Oral Tablet gram tablet Family Take 1 tablet Practice every 12 hours by oral route. Azelastine azelastine 0.05 Active [facility] hydrochloride 0.5 % eye drops Family MG/ML Ophthalmic INSTILL 1 DROP Practice Solution INTO AFFECTED EYE(S) BY OPHTHALMIC ROUTE 2 TIMES PER DAY Dexamethasone neomycin 3.5 Active [facility] 0.001 MG/MG / mg/g-polymyxin Family Neomycin 0.0035 B 10,000 Practice MG/MG / Polymyxin unit/g-dexameth B 10 UNT/MG 0.1 % eye oint Ophthalmic Ointment Osmotic 24 HR nifedipine ER Active [facility] Nifedipine 30 MG 30 mg Family Extended Release tablet,extended Practice Oral Tablet release 24 hr Take 1 tablet every day by oral route for 30 days. Sulfamethoxazole sulfamethoxazol Active [facility] 800 MG / e 800 [facility] Trimethoprim 160 mg-trimethoprim Practice MG Oral Tablet 160 mg tablet 24 HR Oxybutynin oxybutynin Active [facility] chloride 10 MG chloride ER 10 [facility] Extended Release mg Practice Oral Tablet tablet,extended release 24 hr Take 1 tablet every day by oral route for 90 days. Allergies, Adverse Reactions, Alerts Substance Category Reaction Severity Reaction Status Date Comments Source type Reported N.K.D.A. Adverse Info Not Adverse Active [facility]est[facility] Reaction Available Reaction 7 Health No Known Assertion Drug [facility] Medical Medication allergy Group Allergies Immunizations Immunization Date Given Site Status Last Comments Source Updated pneumococcal 10/27/2018 completed [facility] conjugate PCV 13 Family Practice influenza, 03/19/2018 completed [facility] injectable, Family quadrivalent Practice influenza, high 04/12/2017 completed [facility] dose seasonal Family Practice Tdap 04/26/2016 completed [facility] Family Practice influenza, high 03/16/2016 completed [facility] dose seasonal Family Practice zoster 08/30/2015 completed [facility] Family Practice pneumococcal 05/31/2015 completed [facility] conjugate PCV 13 Family Practice influenza, 03/01/2015 completed [facility] injectable, Family quadrivalent, Practice preservative free pneumococcal 07/01/2002 completed [facility] polysaccharide Family PPV23 Practice Results Order Name Results Value Reference Date Interpretation Comments Source Range Basic glucose 97 65 - 99 09/27 normal [facility] metabolic 1999 panel - Practice Serum or Plasma Basic urea nitrogen 19 7 - 25 09/27 [facility] metabolic (BUN) 1999 panel - Practice Serum or Plasma Basic creatinine 0.82 0.60 - 09/27 normal [facility] metabolic 0.93 1999 panel - Practice Serum or Plasma Basic eGFR non-afr. 68 > or=60 09/27 [facility] metabolic samoan /2017 panel - Practice Serum or Plasma Basic eGFR 79 > or=60 09/27 normal [facility] metabolic samoan 1999 panel - Practice Serum or Plasma Basic BUN/creatinine not 6 - 22 09/27 [facility] metabolic ratio applicable /2017 panel - Practice Serum or Plasma Basic sodium 132 135 - 146 09/27 low [facility] metabolic 1999 panel - Practice Serum or Plasma Basic potassium 4.4 3.5 - 5.3 09/27 [facility] Family 1999 panel - Practice Serum or Plasma Basic chloride 94 98 - 110 09/27 [facility] Family 1999 panel - Practice Serum or Plasma Basic carbon dioxide 29 20 - 31 09/27 [facility] Family 1999 panel - Practice Serum or Plasma Basic calcium 9.8 8.6 - 10.4 09/27 [facility] Family 1999 panel - Practice Serum or Plasma Basic glucose 91 65 - 99 08/29 [facility] Family 1999 panel - Practice Serum or Plasma Basic urea nitrogen 18 7 - 25 08/29 [facility] metabolic (BUN) Family 1999 panel - Practice Serum or Plasma Basic creatinine 0.74 0.60 - 08/29 [facility] metabolic 0.93 [facility] 1999 panel - Practice Serum or Plasma Basic eGFR non-afr. 77 > or=60 08/29 [facility] metabolic Family 1999 panel - Practice Serum or Plasma Basic eGFR 89 > or=60 08/29 [facility] 1999 panel - Practice Serum or Plasma Basic BUN/creatinine not 6 - 22 08/29 [facility] metabolic ratio [facility] 1999 panel - Practice Serum or Plasma Basic sodium 133 135 - 146 08/29 [facility] Family 1999 panel - Practice Serum or Plasma Basic potassium 4.8 3.5 - 5.3 08/29 [facility] 1999 panel - Practice Serum or Plasma Basic chloride 96 98 - 110 08/29 [facility] Family 1999 panel - Practice Serum or Plasma Basic carbon dioxide 31 20 - 31 08/29 [facility] 1999 panel - Practice Serum or Plasma Basic calcium 9.8 8.6 - 10.4 08/29 [facility] Family 1999 panel - Practice Serum or Plasma Comprehensiv glucose 90 65 - 99 08/08 [facility] e Family 1999 panel - Practice Serum or Plasma Comprehensiv urea nitrogen 18 7 - 25 08/08 [facility] e metabolic (BUN) Family 1999 panel - Practice Serum or Plasma Comprehensiv creatinine 0.75 0.60 - 02 [facility] e metabolic 0.93 Family 1999 panel - Practice Serum or Plasma Comprehensiv eGFR non-afr. 76 > or=60 08/08 [facility] e metabolic Family 1999 panel - Practice Serum or Plasma Comprehensiv eGFR 88 > or=60 08/08 [facility] e metabolic samoan 1999 panel - Practice Serum or Plasma Comprehensiv BUN/creatinine not 6 - 22 08/08 [facility] e metabolic ratio 1999 panel - Practice Serum or Plasma Comprehensiv sodium 127 135 - 146 08/08 [facility] e Family 1999 panel - Practice Serum or Plasma Comprehensiv potassium 4.8 3.5 - 5.3 08/08 normal [facility] e Family 1999 panel - Practice Serum or Plasma Comprehensiv chloride 89 98 - 110 08/08 [facility] e Family 1999 panel - Practice Serum or Plasma Comprehensiv carbon dioxide 29 20 - 31 08/08 [facility] e Family 1999 panel - Practice Serum or Plasma Comprehensiv calcium 9.6 8.6 - 10.4 08/08 [facility] e 1999 panel - Practice Serum or Plasma Comprehensiv protein, total 7.1 6.1 - 8.1 08/08 [facility] e 1999 panel - Practice Serum or Plasma Comprehensiv albumin 4.3 3.6 - 5.1 08/08 [facility] e 1999 panel - Practice Serum or Plasma Comprehensiv globulin 2.8 1.9 - 3.7 08/08 [facility] e 1999 panel - Practice Serum or Plasma Comprehensiv albumin/globul 1.5 1.0 - 2.5 08/08 [facility] e metabolic in 1999 panel - Practice Serum or Plasma Comprehensiv bilirubin, 0.7 0.2 - 1.2 08/08 [facility] e metabolic 1999 panel - Practice Serum or Plasma Comprehensiv alkaline 52 33 - 130 08/08 [facility] e metabolic phosphatase 1999 panel - Practice Serum or Plasma Comprehensiv AST 26 10 - 35 08/08 [facility] e Family 1999 panel - Practice Serum or Plasma Comprehensiv ALT 17 6 - 29 08/08 [facility] e 1999 panel - Practice Serum or Plasma Comprehensiv glucose 80 65 - 99 07/30 [facility] e 1999 panel - Practice Serum or Plasma Comprehensiv urea nitrogen 15 7 - 25 07/30 [facility] e metabolic (BUN) 1999 panel - Practice Serum or Plasma Comprehensiv creatinine 0.74 0.60 - 07/30 [facility] e metabolic 0.93 1999 panel - Practice Serum or Plasma Comprehensiv eGFR non-afr. 77 > or=60 07/30 [facility] e metabolic samoan 1999 panel - Practice Serum or Plasma Comprehensiv eGFR 89 > or=60 07/30 [facility] e metabolic samoan 1999 panel - Practice Serum or Plasma Comprehensiv BUN/creatinine not 6 - 22 07/30 [facility] e metabolic ratio 1999 panel - Practice Serum or Plasma Comprehensiv sodium 129 135 - 146 07/30 [facility] e 1999 panel - Practice Serum or Plasma Comprehensiv potassium 4.4 3.5 - 5.3 07/30 [facility] e 1999 panel - Practice Serum or Plasma Comprehensiv chloride 93 98 - 110 07/30 [facility] e 1999 panel - Practice Serum or Plasma Comprehensiv carbon dioxide 31 20 - 31 07/30 [facility] e 1999 panel - Practice Serum or Plasma Comprehensiv calcium 9.6 8.6 - 10.4 07/30 [facility] e 1999 panel - Practice Serum or Plasma Comprehensiv protein, total 6.9 6.1 - 8.1 07/30 [facility] e 1999 panel - Practice Serum or Plasma Comprehensiv albumin 4.3 3.6 - 5.1 07/30 [facility] e 1999 panel - Practice Serum or Plasma Comprehensiv globulin 2.6 1.9 - 3.7 07/30 [facility] e 1999 panel - Practice Serum or Plasma Comprehensiv albumin/globul 1.7 1.0 - 2.5 07/30 [facility] e metabolic in 1999 panel - Practice Serum or Plasma Comprehensiv bilirubin, 0.5 0.2 - 1.2 07/30 [facility] e metabolic total 1999 panel - Practice Serum or Plasma Comprehensiv alkaline 56 33 - 130 07/30 [facility] e metabolic phosphatase 1999 panel - Practice Serum or Plasma Comprehensiv AST 27 10 - 35 07/30 [facility] e 1999 panel - Practice Serum or Plasma Comprehensiv ALT 16 6 - 29 07/30 [facility] e 1999 panel - Practice Serum or Plasma Thyrotropin TSH 2.72 0.40 - 07/30 [facility] [Units/volum 4.50 /2017 Family e] in Serum Practice or Plasma Thyroxine T4, free 1.7 0.8 - 1.8 07/30 [place] (T4) free /2017 Family [Mass/volume Practice ] in Serum or Plasma Triiodothyro T3, free 2.1 2.3 - 4.2 07/30 [facility] [place] (T3) /2017 Family Free Practice [Mass/volume ] in Serum or Plasma CBC W Auto white blood 6.2 3.8 - 10.8 02/19 normal [place] Differential cell count /2016 Family panel - Practice Blood CBC W Auto red blood cell 4.07 3.80 - 02/19 normal [place] Differential count 5.10 /2016 Family panel - Practice Blood CBC W Auto hemoglobin 12.9 11.7 - 02/19 normal [place] Differential 15.5 /2016 Family panel - Practice Blood CBC W Auto hematocrit 38.5 35.0 - 02/19 normal [place] Differential 45.0 Family panel - Practice Blood CBC W Auto MCV 94.6 80.0 - 02/19 normal [place] Differential 100.0 Family panel - Practice Blood CBC W Auto MCH 31.7 27.0 - 02/19 normal [place] Differential 33.0 Family panel - Practice Blood CBC W Auto MCHC 33.5 32.0 - 02/19 normal [place] Differential 36.0 /2016 Family panel - Practice Blood CBC W Auto RDW 12.1 11.0 - 02/19 normal [place] Differential 15.0 Family panel - Practice Blood CBC W Auto platelet count 246 140 - 400 02/19 normal [place] Differential Family panel - Practice Blood CBC W Auto MPV 11.7 7.5 - 12.5 02/19 normal [place] Differential /2016 Family panel - Practice Blood CBC W Auto absolute 3894 1500 - 02/19 normal [place] Differential neutrophils 7800 /2016 Family panel - Practice Blood CBC W Auto absolute 1631 850 - 3900 02/19 normal [place] Differential lymphocytes /2016 Family panel - Practice Blood CBC W Auto absolute 477 200 - 950 02/19 normal [place] Differential monocytes /2016 Family panel - Practice Blood CBC W Auto absolute 167 15 - 500 02/19 normal [place] Differential eosinophils /2016 Family panel - Practice Blood CBC W Auto absolute 31 0 - 200 02/19 normal [place] Differential basophils /2016 Family panel - Practice Blood CBC W Auto neutrophils 62.8 02/19 normal [place] Differential /2016 Family panel - Practice Blood CBC W Auto lymphocytes 26.3 02/19 normal [place] Differential /2016 Family panel - Practice Blood CBC W Auto monocytes 7.7 02/19 [facility] Differential panel - Practice Blood CBC W Auto eosinophils 2.7 02/19 [place] Differential panel - Practice Blood CBC W Auto basophils 0.5 02/19 [place] Differential Family panel - Practice Blood Cobalamin vitamin B12 1788 200 - 1100 02/19 [facility] [place] (Vitamin /2016 [facility] B12) Practice [Mass/volume ] in Serum or Plasma Comprehensiv glucose 85 65 - 99 02/19 [place] e [facility] 1999 panel - Practice Serum or Plasma Comprehensiv urea nitrogen 22 7 - 25 02/19 [facility] e metabolic (BUN) [facility] 1999 panel - Practice Serum or Plasma Comprehensiv creatinine 0.82 0.60 - 02/19 [facility] e metabolic 0.93 [facility] 1999 panel - Practice Serum or Plasma Comprehensiv eGFR non-afr. 69 > or=60 02/19 [facility] e metabolic [facility] 1999 panel - Practice Serum or Plasma Comprehensiv eGFR 79 > or=60 02/19 [facility] e metabolic [facility] 1999 panel - Practice Serum or Plasma Comprehensiv BUN/creatinine not 6 - 02/19 [facility] e metabolic ratio [facility] 1999 panel - Practice Serum or Plasma Comprehensiv sodium 138 135 - 146 02/19 [facility] e [facility] 1999 panel - Practice Serum or Plasma Comprehensiv potassium 4.4 3.5 - 5.3 02/19 [facility] e [facility] 1999 panel - Practice Serum or Plasma Comprehensiv chloride 102 98 - 110 02/19 [facility] e [facility] 1999 panel - Practice Serum or Plasma Comprehensiv carbon dioxide 30 20 - 31 02/19 [facility] e [facility] 1999 panel - Practice Serum or Plasma Comprehensiv calcium 9.5 8.6 - 10.4 02/19 [facility] e [facility] 1999 panel - Practice Serum or Plasma Comprehensiv protein, total 6.6 6.1 - 8.1 02/19 [facility] e [facility] 1999 panel - Practice Serum or Plasma Comprehensiv albumin 4.0 3.6 - 5.1 02/19 [facility] e [facility] 1999 panel - Practice Serum or Plasma Comprehensiv globulin 2.6 1.9 - 3.7 02/19 [facility] e [facility] 1999 panel - Practice Serum or Plasma Comprehensiv albumin/globul 1.5 1.0 - 2.5 02/19 normal [place] metabolic in ratio 1999 panel - Practice Serum or Plasma Comprehensiv bilirubin, 0.4 0.2 - 1.2 02/19 normal [place] e metabolic total /2016 Family 1999 panel - Practice Serum or Plasma Comprehensiv alkaline 48 33 - 130 02/19 normal [place] e metabolic phosphatase /2016 panel - Practice Serum or Plasma Comprehensiv AST 26 10 - 35 02/19 normal [place] e metabolic /2016 Family 1999 panel - Practice Serum or Plasma Comprehensiv ALT 14 6 - 29 02/19 normal [place] e metabolic /2016 Family 1999 panel - Practice Serum or Plasma Thyrotropin TSH 2.42 0.40 - 02/19 normal [place] [Units/volum 4.50 /2016 Family e] in Serum Practice or Plasma Thyroxine T4, free 1.6 0.8 - 1.8 02/19 normal [facility] (T4) free /2016 Family [Mass/volume Practice ] in Serum or Plasma Triiodothyro T3, free 2.5 2.3 - 4.2 02/19 normal [facility] nine (T3) /2016 Family Free Practice [Mass/volume ] in Serum or Plasma CBC W Auto white blood 9.1 3.8 - 10.8 12/12 normal [place] Differential cell count /2016 [facility] panel - Practice Blood CBC W Auto red blood cell 4.07 3.80 - 12/12 normal [place] Differential count 5.10 [facility] panel - Practice Blood CBC W Auto hemoglobin 12.5 11.7 - 12/12 normal [place] Differential 15.5 [facility] panel - Practice Blood CBC W Auto hematocrit 37.9 35.0 - 12/12 normal [place] Differential 45.0 Family panel - Practice Blood CBC W Auto MCV 93.2 80.0 - 12/12 normal [place] Differential 100.0 /2016 Family panel - Practice Blood CBC W Auto MCH 30.6 27.0 - 12/12 normal [place] Differential 33.0 Family panel - Practice Blood CBC W Auto MCHC 32.9 32.0 - 12/12 normal [place] Differential 36.0 Family panel - Practice Blood CBC W Auto RDW 14.2 11.0 - 12/12 normal [place] Differential 15.0 [facility] panel - Practice Blood CBC W Auto platelet count 235 140 - 400 12/12 normal [place] Differential /2016 Family panel - Practice Blood CBC W Auto MPV 9.9 7.5 - 12.5 12/12 normal [place] Differential /2016 Family panel - Practice Blood CBC W Auto absolute 5842 1500 - 12/12 normal [place] Differential neutrophils 7800 /2016 Family panel - Practice Blood CBC W Auto absolute 2239 850 - 3900 12/12 normal [place] Differential lymphocytes /2016 Family panel - Practice Blood CBC W Auto absolute 555 200 - 950 12/12 normal [place] Differential monocytes /2016 Family panel - Practice Blood CBC W Auto absolute 419 15 - 500 12/12 normal [place] Differential eosinophils Family panel - Practice Blood CBC W Auto absolute 46 0 - 200 12/12 normal [place] Differential basophils Family panel - Practice Blood CBC W Auto neutrophils 64.2 12/12 normal [place] Differential /2016 Family panel - Practice Blood CBC W Auto lymphocytes 24.6 12/12 normal [place] Differential Family panel - Practice Blood CBC W Auto monocytes 6.1 12/12 normal [place] Differential Family panel - Practice Blood CBC W Auto eosinophils 4.6 12/12 normal [place] Differential Family panel - Practice Blood CBC W Auto basophils 0.5 12/12 normal [place] Differential Family panel - Practice Blood Comprehensiv glucose 84 65 - 99 12/12 normal [place] e metabolic [facility] 1999 panel - Practice Serum or Plasma Comprehensiv urea nitrogen 26 7 - 25 12/12 [facility] e metabolic (BUN) [facility] 1999 panel - Practice Serum or Plasma Comprehensiv creatinine 0.89 0.60 - 12/12 normal [facility] e metabolic 0.93 [facility] 1999 panel - Practice Serum or Plasma Comprehensiv eGFR non-afr. 62 > or=60 12/12 normal [place] metabolic [place] /2016 panel - Practice Serum or Plasma Comprehensiv eGFR 72 > or=60 12/12 normal [place] e metabolic samoan /2016 [facility] 1999 panel - Practice Serum or Plasma Comprehensiv BUN/creatinine 29 6 - 22 12/12 [place] metabolic ratio [facility] 1999 panel - Practice Serum or Plasma Comprehensiv sodium 136 135 - 146 12/12 normal [place] e metabolic /2016 [facility] 1999 panel - Practice Serum or Plasma Comprehensiv potassium 4.7 3.5 - 5.3 12/12 normal [place] e metabolic /2016 [facility] 1999 panel - Practice Serum or Plasma Comprehensiv chloride 100 98 - 110 12/12 normal [place] e [facility] 1999 panel - Practice Serum or Plasma Comprehensiv carbon dioxide 29 20 - 31 12/12 normal [place] Family 1999 panel - Practice Serum or Plasma Comprehensiv calcium 9.4 8.6 - 10.4 12/12 normal [place] Family 1999 panel - Practice Serum or Plasma Comprehensiv protein, total 6.2 6.1 - 8.1 12/12 normal [place] e Family 1999 panel - Practice Serum or Plasma Comprehensiv albumin 3.7 3.6 - 5.1 12/12 normal [place] Family 1999 panel - Practice Serum or Plasma Comprehensiv globulin 2.5 1.9 - 3.7 12/12 normal [place] e Family 1999 panel - Practice Serum or Plasma Comprehensiv albumin/globul 1.5 1.0 - 2.5 12/12 normal [place] e metabolic in 1999 panel - Practice Serum or Plasma Comprehensiv bilirubin, 0.5 0.2 - 1.2 12/12 normal [facility] e total 1999 panel - Practice Serum or Plasma Comprehensiv alkaline 51 33 - 130 12/12 [facility] e metabolic phosphatase 1999 panel - Practice Serum or Plasma Comprehensiv AST 24 10 - 35 12/12 [facility] e Family 1999 panel - Practice Serum or Plasma Comprehensiv ALT 12 6 - 29 12/12 [facility] e Family 1999 panel - Practice Serum or Plasma Lipase lipase 61 7 - 60 12/12 [facility] [Enzymatic /2016 Family activity/vol Practice ume] in Serum or Plasma 25-Hydroxyvi vitamin 56 30 - 100 06/21 [facility] tamin D D,25-oh,total, /2015 Family [Mass/volume ia Practice ] in Serum or Plasma CBC W Auto white blood 4.6 3.8 - 10.8 06/21 [facility] Differential cell count /2015 Family panel - Practice Blood CBC W Auto red blood cell 4.07 3.80 - 06/21 [facility] Differential count 5.10 Family panel - Practice Blood CBC W Auto hemoglobin 12.6 11.7 - 06/21 [facility] Differential 15.5 /2015 Family panel - Practice Blood CBC W Auto hematocrit 38.0 35.0 - 06/21 [facility] Differential 45.0 /2015 Family panel - Practice Blood CBC W Auto MCV 93.2 80.0 - 06/21 [facility] Differential 100.0 /2015 Family panel - Practice Blood CBC W Auto MCH 31.0 27.0 - 12 normal [place] Differential 33.0 /2015 Family panel - Practice Blood CBC W Auto MCHC 33.3 32.0 - 06/21 normal [place] Differential 36.0 /2015 Family panel - Practice Blood CBC W Auto RDW 13.4 11.0 - 06/21 normal [place] Differential 15.0 /2015 Family panel - Practice Blood CBC W Auto platelet count 198 140 - 400 06/21 normal [place] Differential /2015 Family panel - Practice Blood CBC W Auto MPV 9.6 7.5 - 11.5 06/21 normal [place] Differential /2015 Family panel - Practice Blood CBC W Auto absolute 2309 1500 - 06/21 normal [place] Differential neutrophils 7800 /2015 Family panel - Practice Blood CBC W Auto absolute 1808 850 - 3900 06/21 normal [place] Differential lymphocytes /2015 Family panel - Practice Blood CBC W Auto absolute 382 200 - 950 06/21 normal [place] Differential monocytes /2015 Family panel - Practice Blood CBC W Auto absolute 83 15 - 500 06/21 normal [place] Differential eosinophils /2015 Family panel - Practice Blood CBC W Auto absolute 18 0 - 200 06/21 normal [place] Differential basophils /2015 Family panel - Practice Blood CBC W Auto neutrophils 50.2 06/21 normal [place] Differential Family panel - Practice Blood CBC W Auto lymphocytes 39.3 06/21 normal [place] Differential Family panel - Practice Blood CBC W Auto monocytes 8.3 06/21 normal [place] Differential Family panel - Practice Blood CBC W Auto eosinophils 1.8 06/21 normal [place] Differential Family panel - Practice Blood CBC W Auto basophils 0.4 06/21 normal [place] Differential Family panel - Practice Blood Cobalamin vitamin B12 1992 200 - 1100 06/21 [place] (Vitamin /2015 [facility] B12) Practice [Mass/volume ] in Serum or Plasma Comprehensiv glucose 87 65 - 99 06/21 normal [place] e metabolic /2015 panel - Practice Serum or Plasma Comprehensiv urea nitrogen 16 7 - 25 06/21 normal [place] e metabolic (BUN) /2015 panel - Practice Serum or Plasma Comprehensiv creatinine 0.72 0.60 - 06/21 normal [place] e metabolic 0.93 [facility] 1999 panel - Practice Serum or Plasma Comprehensiv eGFR non-afr. 80 > or=60 06/21 normal [place] e metabolic [place] /2015 panel - Practice Serum or Plasma Comprehensiv eGFR 93 > or=60 06/21 normal [place] e metabolic [place] 1999 panel - Practice Serum or Plasma Comprehensiv BUN/creatinine not 6 - 22 06/21 [place] metabolic ratio 1999 panel - Practice Serum or Plasma Comprehensiv sodium 141 135 - 146 06/21 normal [place] e 1999 panel - Practice Serum or Plasma Comprehensiv potassium 4.5 3.5 - 5.3 06/21 normal [place] e 1999 panel - Practice Serum or Plasma Comprehensiv chloride 104 98 - 110 06/21 normal [place] e 1999 panel - Practice Serum or Plasma Comprehensiv carbon dioxide 29 20 - 31 06/21 normal [place] e 1999 panel - Practice Serum or Plasma Comprehensiv calcium 9.3 8.6 - 10.4 06/21 normal [place] e 1999 panel - Practice Serum or Plasma Comprehensiv protein, total 6.6 6.1 - 8.1 06/21 [facility] e 1999 panel - Practice Serum or Plasma Comprehensiv albumin 3.9 3.6 - 5.1 06/21 normal [facility] e 1999 panel - Practice Serum or Plasma Comprehensiv globulin 2.7 1.9 - 3.7 06/21 normal [place] e 1999 panel - Practice Serum or Plasma Comprehensiv albumin/globul 1.4 1.0 - 2.5 06/21 normal [place] e metabolic in 1999 panel - Practice Serum or Plasma Comprehensiv bilirubin, 0.6 0.2 - 1.2 06/21 [facility] e total 1999 panel - Practice Serum or Plasma Comprehensiv alkaline 52 33 - 130 06/21 normal [facility] e metabolic phosphatase 1999 panel - Practice Serum or Plasma Comprehensiv AST 29 10 - 35 06/21 [facility] e 1999 panel - Practice Serum or Plasma Comprehensiv ALT 21 6 - 29 06/21 normal [place] e 1999 panel - Practice Serum or Plasma Lipid 1995 cholesterol, 164 125 - 200 06/21 [place] panel - total Serum or Practice Plasma Lipid 1995 HDL 52 > or=46 06/21 [facility] panel - cholesterol Serum or Practice Plasma Lipid 1995 triglycerides 98 <150 06/21 [place] panel - /2015 Serum or Practice Plasma Lipid 1995 LDL-cholestero 92 <130 06/21 normal [facility] panel - l Family Serum or Practice Plasma Lipid 1995 chol/HDLC 3.2 < or=5.0 06/21 normal [facility] panel - ratio Family Serum or Practice Plasma Lipid 1995 non HDL 112 06/21 normal [facility] panel - cholesterol Family Serum or Practice Plasma Thyrotropin TSH 2.88 0.40 - 06/21 normal [place] [Units/volum 4.50 /2016 Family e] in Serum Practice or Plasma Pathology Reports No Data Provided for This Section Diagnostic Reports No Data Provided for This Section Consultation Notes No Data Provided for This Section Discharge Summaries No Data Provided for This Section History and Physicals No Data Provided for This Section Vital Signs Vital Sign Value Date Comments Source BMI Calculated 22.96 02/03/[facility] Weight 60.682 02/03/[facility] Height 162.56 cm 02/03/[facility] Heart Rate 66 02/03/[facility] Systolic (mm Hg) 135 02/03/[facility] Diastolic (mm Hg) 55 02/03/[facility] Diastolic (mm Hg) 78 01/07/2019 [facility] Height 63.75 01/07/2019 [facility] Systolic (mm Hg) 128 01/07/2019 [facility] Weight 133.2 01/07/2019 [facility] Diastolic (mm Hg) 71 11/28/2018 [facility] Height 63.75 11/28/2018 [facility] Systolic (mm Hg) 153 11/28/2018 [facility] Weight 133.8 11/28/2018 [facility] Diastolic (mm Hg) 74 11/21/2018 [facility] Height 63.75 11/21/2018 [facility] Systolic (mm Hg) 136 11/21/2018 [facility] Weight 134 11/21/2018 [facility] Diastolic (mm Hg) 64 11/06/2018 [facility] Height 63.75 11/06/2018 [facility] Systolic (mm Hg) 139 11/06/2018 [facility] Weight 136.4 11/06/2018 [facility] Diastolic (mm Hg) 74 09/22/2018 [facility] Height 63.75 09/22/2018 [facility] Systolic (mm Hg) 122 09/22/2018 [facility] Weight 135 09/22/2018 [facility] Diastolic (mm Hg) 64 09/08/2018 [facility] Height 63.75 09/08/2018 [facility] Systolic (mm Hg) 132 09/08/2018 [facility] Weight 137.2 09/08/2018 [facility] Diastolic (mm Hg) 67 08/07/2018 [facility] Height 63.75 08/07/2018 [facility] Systolic (mm Hg) 126 08/07/2018 [facility] Weight 138 08/07/2018 [facility] Heart Rate 60 04/09/2018 [facility] Weight 60.909 04/09/2018 [facility] Systolic (mm Hg) 99 04/09/2018 [facility] Diastolic (mm Hg) 58 04/09/2018 [facility] Diastolic (mm Hg) 62 10/14/2017 [facility] Height 63.75 10/14/2017 [facility] Systolic (mm Hg) 121 10/14/2017 [facility] Weight 132.8 10/14/2017 [facility] Diastolic (mm Hg) 64 09/26/2017 [facility] Height 63.75 09/26/2017 [facility] Systolic (mm Hg) 135 09/26/2017 [facility] Weight 129 09/26/2017 [facility] Diastolic (mm Hg) 86 09/17/2017 [facility] Height 63.75 09/17/2017 [facility] Systolic (mm Hg) 125 09/17/2017 [facility] Weight 130 09/17/2017 [facility] Diastolic (mm Hg) 57 09/09/2017 [facility] Height 63.75 09/09/2017 [facility] Systolic (mm Hg) 154 09/09/2017 [facility] Weight 130 09/09/2017 [facility] Diastolic (mm Hg) 62 09/02/2017 [facility] Height 63.75 09/02/2017 [facility] Systolic (mm Hg) 149 09/02/2017 [facility] Weight 128.8 09/02/2017 [facility] Diastolic (mm Hg) 76 07/29/2017 [facility] Height 63.75 07/29/2017 [facility] Systolic (mm Hg) 122 07/29/2017 [facility] Weight 129.4 07/29/2017 [facility] Diastolic (mm Hg) 76 07/08/2017 [facility] Height 63.75 07/08/2017 [facility] Systolic (mm Hg) 124 07/08/2017 [facility] Weight 131.2 07/08/2017 [facility] Diastolic (mm Hg) 72 07/03/2017 [facility] Height 63.75 07/03/2017 [facility] Systolic (mm Hg) 122 07/03/2017 [facility] Weight 130.8 07/03/2017 [facility] Diastolic (mm Hg) 80 05/15/2017 [facility] Height 63.75 05/15/2017 [facility] Systolic (mm Hg) 132 05/15/2017 [facility] Weight 128 05/15/2017 [facility] Diastolic (mm Hg) 83 05/06/2017 [facility] Height 63.75 05/06/2017 [facility] Systolic (mm Hg) 163 05/06/2017 [facility] Weight 129.4 05/06/2017 [facility] Diastolic (mm Hg) 80 04/30/2017 [facility] Height 63.75 04/30/2017 [facility] Systolic (mm Hg) 122 04/30/2017 [facility] Weight 130.6 04/30/2017 [facility] Diastolic (mm Hg) 72 04/26/2017 [facility] Height 63.75 04/26/2017 [facility] Systolic (mm Hg) 114 04/26/2017 [facility] Weight 129.4 04/26/2017 [facility] Diastolic (mm Hg) 76 03/27/2017 [facility] Height 63.75 03/27/2017 [facility] Systolic (mm Hg) 106 03/27/2017 [facility] Weight 127.2 03/27/2017 [facility] Diastolic (mm Hg) 76 02/18/2017 [facility] Height 63.75 02/18/2017 [facility] Systolic (mm Hg) 142 02/18/2017 [facility] Weight 124 02/18/2017 [facility] Diastolic (mm Hg) 76 01/04/2017 [facility] Height 63.75 01/04/2017 [facility] Systolic (mm Hg) 124 01/04/2017 [facility] Weight 126 01/04/2017 [facility] Diastolic (mm Hg) 72 12/11/2016 [facility] Height 63.75 12/11/2016 [facility] Systolic (mm Hg) 130 12/11/2016 [facility] Weight 126 12/11/2016 [facility] Diastolic (mm Hg) 70 11/21/2016 [facility] Height 63.75 11/21/2016 [facility] Systolic (mm Hg) 128 11/21/2016 [facility] Diastolic (mm Hg) 76 11/14/2016 [facility] Height 63.75 11/14/2016 [facility] Systolic (mm Hg) 160 11/14/2016 [facility] Weight 125.4 11/14/2016 [facility] Diastolic (mm Hg) 70 10/26/2016 [facility] Height 63.75 10/26/2016 [facility] Systolic (mm Hg) 140 10/26/2016 [facility] Weight 125.4 10/26/2016 [facility] Systolic (mm Hg) 151 08/08/2016 [facility] Weight 124 08/08/2016 [facility] Height 63 08/08/2016 [facility] Diastolic (mm Hg) 60 08/08/2016 [facility] Diastolic (mm Hg) 72 08/01/2016 [facility] Height 63.75 08/01/2016 [facility] Systolic (mm Hg) 138 08/01/2016 [facility] Weight 128.4 08/01/2016 [facility] Diastolic (mm Hg) 68 07/23/2016 [facility] Height 63.75 07/23/2016 [facility] Systolic (mm Hg) 157 07/23/2016 [facility] Weight 128.6 07/23/2016 [facility] Diastolic (mm Hg) 65 06/19/2016 [facility] Height 63.75 06/19/2016 [facility] Systolic (mm Hg) 146 06/19/2016 [facility] Weight 131.4 06/19/2016 [facility] Diastolic (mm Hg) 80 05/21/2016 [facility] Height 63.75 05/21/2016 [facility] Systolic (mm Hg) 132 05/21/2016 [facility] Weight 130.4 05/21/2016 [facility] Diastolic (mm Hg) 76 05/03/2016 [facility] Height 63.75 05/03/2016 [facility] Systolic (mm Hg) 124 05/03/2016 [facility] Weight 131.8 05/03/2016 [facility] Diastolic (mm Hg) 82 04/26/2016 [facility] Height 63.75 04/26/2016 [facility] Systolic (mm Hg) 135 04/26/2016 [facility] Weight 132.4 04/26/2016 [facility] Systolic (mm Hg) 152 04/11/2016 [facility] Weight 132 04/11/2016 [facility] Height 63 04/11/2016 [facility] Diastolic (mm Hg) 74 04/11/2016 [facility] Diastolic (mm Hg) 70 04/09/2016 [facility] Height 63.75 04/09/2016 [facility] Systolic (mm Hg) 144 04/09/2016 [facility] Weight 133.4 04/09/2016 [facility] Diastolic (mm Hg) 84 03/30/2016 [facility] Height 63.75 03/30/2016 [facility] Systolic (mm Hg) 132 03/30/2016 [facility] Weight 134 03/30/2016 [facility] Diastolic (mm Hg) 70 03/16/2016 [facility] Height 63.75 03/16/2016 [facility] Systolic (mm Hg) 128 03/16/2016 [facility] Weight 133.2 03/16/2016 [facility] Diastolic (mm Hg) 84 02/29/2016 [facility] Height 63.75 02/29/2016 [facility] Systolic (mm Hg) 126 02/29/2016 [facility] Weight 133 02/29/2016 [facility] Diastolic (mm Hg) 76 02/20/2016 [facility] Height 63.75 02/20/2016 [facility] Systolic (mm Hg) 120 02/20/2016 [facility] Weight 134.2 02/20/2016 [facility] Diastolic (mm Hg) 66 01/04/2016 [facility] Height 63.75 01/04/2016 [facility] Systolic (mm Hg) 120 01/04/2016 [facility] Weight 135.2 01/04/2016 [facility] Diastolic (mm Hg) 77 12/23/2015 [facility] Height 63.75 12/23/2015 [facility] Systolic (mm Hg) 113 12/23/2015 [facility] Weight 134.2 12/23/2015 [facility] Diastolic (mm Hg) 76 12/21/2015 [facility] Height 63.75 12/21/2015 [facility] Systolic (mm Hg) 126 12/21/2015 [facility] Weight 134 12/21/2015 [facility] Diastolic (mm Hg) 77 12/16/2015 [facility] Height 63.75 12/16/2015 [facility] Systolic (mm Hg) 130 12/16/2015 [facility] Weight 134 12/16/2015 [facility] Diastolic (mm Hg) 74 12/15/2015 [facility] Height 63.75 12/15/2015 [facility] Systolic (mm Hg) 122 12/15/2015 [facility] Weight 132.8 12/15/2015 [facility] Diastolic (mm Hg) 72 11/30/2015 [facility] Height 63.75 11/30/2015 [facility] Systolic (mm Hg) 118 11/30/2015 [facility] Weight 132.4 11/30/2015 [facility] Diastolic (mm Hg) 60 11/23/2015 [facility] Height 63.75 11/23/2015 [facility] Systolic (mm Hg) 126 11/23/2015 [facility] Weight 133.6 11/23/2015 [facility] Diastolic (mm Hg) 70 10/28/2015 [facility] Height 63.75 10/28/2015 [facility] Systolic (mm Hg) 112 10/28/2015 [facility] Weight 132 10/28/2015 [facility] Height 63.75 10/26/2015 [facility] Weight 133 10/26/2015 [facility] Diastolic (mm Hg) 80 10/26/2015 [facility] Systolic (mm Hg) 142 10/26/2015 [facility] Diastolic (mm Hg) 88 10/12/2015 [facility] Height 63.75 10/12/2015 [facility] Systolic (mm Hg) 130 10/12/2015 [facility] Weight 131 10/12/2015 [facility] Diastolic (mm Hg) 78 08/30/2015 [facility] Height 63.75 08/30/2015 [facility] Systolic (mm Hg) 124 08/30/2015 [facility] Weight 132 08/30/2015 [facility] Diastolic (mm Hg) 72 08/03/2015 [facility] Height 63.75 08/03/2015 [facility] Systolic (mm Hg) 140 08/03/2015 [facility] Weight 132 08/03/2015 [facility] Diastolic (mm Hg) 80 07/13/2015 [facility] Height 63.75 07/13/2015 [facility] Systolic (mm Hg) 122 07/13/2015 [facility] Weight 135 07/13/2015 [facility] Diastolic (mm Hg) 78 05/31/2015 [facility] Height 63.5 05/31/2015 [facility] Systolic (mm Hg) 130 05/31/2015 [facility] Weight 134 05/31/2015 [facility] Encounters Location Location Encounter Encounter Reason Attending ADM DC Status Source Details Type Number For Provider Date Date Visit FER - Tennille Zamora [id number] Tennille Brannon 02/19 [facility], PA-C: [id number] Family Family 68998Brodie Lucero [id number] Practice Practice - [address], [address], [place] [address], Ph. [place] - Dari E [id number] Dari 02/28 [facility] [place], DPM: [id number] Family Family [id number] [place] [id number] Practice Practice - [address], [address], [place] [address], Ph. [place] - Tennille E [id number] Tennille Cu 03/16 [facility], PA-C: [id number] Family Family 25228Brodie Lucero [id number] Practice Practice - [address], [address], [place] [address], Ph. [place] - Tennille E [id number] Tennille Cu 03/30 [facility], PA-C: [id number] Family Family 43205Brodie Lucero [id number] Practice Practice - [address], [address], [place] [address], Ph. [place] - Tennille Zamora [id number] Tennille 04/09 [facility], PA-C: 69 Family Family 20976 [place] [id number] Practice Practice - [address], [address], [place] [address], Ph. [facility] [id number] 04/11 04/11 [id number] [facility] [id number] 1f8 [facility] h96i4m4w-l6 04/11 04/11 [facility] [id number]-[id number]-891 [facility] [id number] 751 [facility] [id number] 04/11 04/11 [facility] 16-4047-ad4 /2015 [facility] [id number] 612 [facility] 00112qu3-m9 04/11 04/11 [facility] 33-6en4-9pd /2015 [facility] [id number] 0a1 [facility] 051l0y03-6m 04/11 04/11 [facility] 66-4eq9-w05 /2015 [facility] f-[id number] 8d4 [facility] [id number] 04/11 04/11 [facility] dd-467b-854 /2015 [facility] 3-tooi69p8y 5b4 Dig[facility] BW 2021wr2u-8y 04/24 04/24 [facility] Requisition f8-0q22-xx1 /2015 [facility] 5-[id number] 38b Dig[facility] BW 583gu6kb-q8 04/24 04/24 [facility] d6-401c-9f2 /2015 [facility] e-[id number] e57 Digestive BW t0j04t6o-ci 04/24 04/24 [facility] Re[facility] 73-40be-b45 /2015 [facility] [id number] 917 [facility] BW e363pi8w-25 04/24 04/24 [facility] Re[facility] 51-86y2-f94 /2015 [facility] [id number] ea8 Dig[facility] BW [id number] 04/24 04/24 [facility] Re[facility] c7-8qn8-097 /2015 [facility] e-[id number] bff [place] - Tennille E [id number] Tennille Brannon 04/26 [facility] [place] PA-C: [id number] Family Family Kimberly valdez-[id number] Practice [facility] [address] [address] [place] [address], Ph. FER Zamora [id number] Tennille Cu 05/03 [facility] [place] PA-C: Family Family 08232Brodie [id number] [facility], [address], [place] [address], Ph. [facility] Appointment [id number] 05/16 05/16 [facility] /FYI 3f-48fa-84d /2015 [facility] [id number] ee6 Dig[facility] Appointment [id number] 05/16 05/16 [facility] /FYI ab-4dcc-ae0 /2015 [facility] c-khxm316p6 6d4 Digestive Appointment 183gf10i-0m 05/16 05/16 [facility] /FYI 4a-4627-b12 /2015 [facility] [id number] d5a Digestive Appointment [id number] 05/16 05/16 [facility] /FYI a3-4271-a09 /2015 [facility] 3-[id number] e29 [place] - Tennille E [id number] Tennille Cu 05/21 [facility] [place] PA-C: [phone] Family Family Kimberly [id number] [facility], [address], [place] [address], Ph. Dig[facility] Referral/Ap 0dy26lmj-7x 06/13 06/13 [facility] pointment ac-43af-ba9 /2015 [facility] 9-[id number] e9a Digestive Referral/Ap 3b3q89iy-8y 06/13 06/13 [facility]ment 22-6kv1-y93 /2015 [facility] 0-[id number] e63 Digestive Referral/Ap 572nbc41-w6 06/13 06/13 [facility] pointment 44-472b-b6b /2015 [facility] 2-78500l498 c9e [place] - Noni Torres [id number] Noni 06/19 [facility] MD Jose Maria: [id number] Jose Maria Family Family Kimberly [id number] Practice Practice - [address], [place] [address], Ph. [facility] [id number] Dimaalonzo Boo 07/13 08/12 [facility] Soler 0 Shy /2016 [facility] [place] - Rajesh Harmon [id number] Rajesh Bernal 07/23 [facility] Bernal, 18-74cc- [place]: [id number] [id number] Practice Practice - [place] [address] [facility] [address] [address], Ph. FER Zamoar [id number] Dari 08/01 [facility] [place], DPM: [id number] Family Family 29067 [place] f-[id number] [facility] [address], [place] [address], Ph. Digestive Lump around p4m1jex9-35 08/08 08/08 [facility] colon. ae-9v48-q34 /2016 [facility] c-[id number] fca Digestive Lump around is085z03-00 08/08 08/08 [facility] colon. ec-3x65-8jp /2016 [facility] [id number] 121 Digestive Unknown iee99nbw-zx 08/27 08/27 [facility] ee-4713-ac8 [facility] 9-[id number] 6c3 [place] - Tennille E [id number] Tennille Cu 10/26 [facility] [place] PAJuanaC: 18-1si2-176 Family Family 08538Brodie Lucero f-[id number] Practice Practice - [address], [address], [place] [address], Ph. FER - Tennille Zamora [id number] Tennille Cu 10/30 [facility] [place] PAJuanaC: 18-i991-005 Family Family 91797Brodie Lucero [id number] Practice Practice - [address], [address], [place] [address], Ph. [place] - Dari Zamora [id number] Dari 11/14 [facility], DPM: 18-s16v-186 Family Family Kimberly valdez-[id number] Practice Practice - [address], [place] [address], Ph. [facility] OP Therapy [id number] Noni 11/16 12/16 [facility] Patients 0 [facility] [place] - Dari Zamora [id number] Dari 11/21 [facility], DPM: [id number]-[id number] [place] Family Family Kimberly valdez-[id number] Practice Practice - [address], [address], [place] [address], Ph. [place] - Navnitkumar [id number] Navnitkumar 12/11 [facility] Sandor Hancock, -[id number] [place] Family Family MD: [id number] Practice Practice - [place] [address] [facility], [place] [address], Ph. [facility] OP Therapy [id number] Noni 12/17 01/16 [place] Patients 1 [facility] [place] - Navnitkumar [id number] Navnitkumar 01/04 [facility] Sandor [place], [id number] [place] Family Family MD: [id number] Practice Practice - [place] [address] [facility] [address], [place] [address], Ph. [facility] OP Therapy [id number] Noni 01/18 02/17 [facility] Patients 2 Jose Maria [facility] [place] - Navnitkumar [id number] Navnitkumar 02/18 [facility] Sandor Karissa, [id number] Family Family MD: [id number] Practice Practice - [place] [address], [facility] [address], [place] [address], Ph. [place] - Navnitkumar [id number] Navnitkumar 03/27 [facility] Sandor Karissa, [id number] Family Family MD: [id number] Practice Practice - [place] [address], [facility] [address], [place] [address], Ph. [place] - Jessica Mason [id number] Jessica Concepcion 04/26 [facility] MD Jamey: [id number] Family Family 9055 [place] f-[id number] Practice Practice - [address], [address], [place] [address], Ph. [place] - Timbo Mason [id number] Timbo 04/30 [facility] MD Danae: [id number] Fink Family Family 59606 [place] f-[id number] Practice Practice - [address], [address], [place] [address], Ph. [place] - Navnitkumar [id number] Navnitkumar 05/06 [facility] Sandor Hancock 7cba Family Family MD: [id number] Practice Practice - [place] [address], [facility] [address], [place] [address], Ph. [place] - Navnitkumar [id number] Navnitkumar 05/15 [facility] Sandor Hancock, -[id number] [place] Family Family MD: [id number] Practice Practice - [place] [address] [facility] [address], [place] [address], Ph. [place] - Sanjeev Skinner [id number] Sanjeev 07/03 [facility] Amy, [id number] [place]: [id number] Practice Practice - [place] [address] [facility] [address], [place] [address], Ph. [place] - Vicky [id number] Vicky Smith 07/08 [facility] Ema Smith, 97da Family Family PA: [id number] Practice Practice - [place] [address] [facility] [place] [address], Ph. [place] - Navnitkumar [id number] Navnitkumar 07/29 [facility] Sandor Karissa, [id number]-613 [place] Family Family MD: [id number] Practice Practice - [place] [address] [facility] [address], [place] [address], Ph. [place] - Navnitkumar [id number] Navnitkumar 09/02 [facility] Sandor Karissa, [id number] Family Family MD: [id number] Practice Practice - [place] [address] [facility] [address], [place] [address], Ph. [place] - Navnitkumar [id number] Navnitkumar 09/09 [facility] Sandor Karissa, [id number] [facility] [facility] Family [place]: [id number] [id number] Practice Practice - [place] [address] [facility] [address], [place] [address], Ph. [place] - Navnitkumar [id number] Navnitkumar 09/17 [facility] Sandor Hancock, [id number] [place] Family Family [place]: [id number] Practice Practice - [place] [address] [facility] [address], [place] [address], Ph. [place] - Navnitkumar [id number] Navnitkumar 09/26 [facility] Sanodr Wolffa, [id number] [place] [facility] Family MD: [id number] Practice Practice - [place] [address] [address], [place] [address], Ph. [place] - Navnitkumar [id number] Navnitkumar 10/14 [facility] Sandor HartmanHancock, 18-8rv1-114 [place] Family Family MD: [id number] Practice Practice - [place] [address] [facility] [address], [place] [address], Ph. Outpatient [id number] ARELY ROSALES 04/09 [facility] Outpatient [id number] Arely Rosales 04/09 04/10 [facility] Outpatient [id number] ARELY ROSALES 05/07 [facility] Outpatient [id number] Arely Rosales 05/07 05/08 [facility] [place] - Navnitkumar [id number] Navnitkumar 08/07 [facility] Sandor Wolffa, [id number]-621 [place] [facility] Family [place]: [id number] [id number] Practice Practice - [place] [address] [facility] [address], [place] [address], Ph. [place] - Navnitkumar [id number] Navnitkumar 09/08 [facility] Sandor Hancock, [id number] [place] Family Family [place]: [id number] Practice Practice - [place] [address] [facility] [address], [place] [address], Ph. [place] - Navnitkumar [id number] Navnitkumar 09/08 [facility] Sandor Hancock, [id number] [place] Family Family MD: [id number] Practice Practice - [place] [address] [facility] [address], [place] [address], Ph. [place] - Navnitkumar [id number] Navnitkumar 09/22 [facility] Sandor Hancock, [id number] [place] Family Family [place]: [id number] [id number] Practice Practice - [place] [address] [facility] [address], [place] [address], Ph. [place] - Navnitkumar [id number] Navnitkumar 11/06 [facility] Sandor Wolffa, [id number] [facility] Family MD: [id number] Practice Practice - [place] [address] [facility] [address], [place] [address], Ph. [place] - Navnitkumar [id number] Navnitkumar 11/06 [facility] Sandor Hancock, [id number] [facility] MD: [id number] [id number] Practice Practice - [place] [address] [facility], [place] [address], Ph. [place] - Navnitkumar [id number] Navnitkumar 11/06 [facility] Sandor HartmanHancock, [id number] [facility] Family MD: [id number] Practice Practice - [place] [address] [facility] [address], [place] [address], Ph. [place] - Evie Gutiérrez [id number] Evie Conley 11/21 [facility] MD Jarvis: [phone] Family Family [phone] [id number] Practice Practice - [address], [address], [place] [address], Ph. [place] Juana Gutiérrez [id number] Evie Jarvis 11/21 [facility] MD Jarvis: [phone] Family Family [phone] [id number] Practice Practice - [address], [address], [place] [address], Ph. [place] - Albino [id number] Davidnitkjulissa 11/28 [facility], -[id number] [facility] Family MD: [id number] Practice Practice - [place] [address] [facility], [facility] [address], [place] [address], Ph. Outpatient [id number] Arely Rosales 12/30 Active [facility] Outpatient [id number] Arely Rosales 12/30 12/31 [facility] [place] - Silvino Morris [id number] Silvino 01/07 [facility] Fantasma Liang MD: [id number] [facility] Family Family [id number] [place] [id number] Practice Practice - [address], [address], [place] [address], Ph. Outpatient [id number] Arely Rosales 02/03 Active [facility] Outpatient [id number] Arely Rosales 02/03 02/04 [facility] Outpatient [id number] Arely Rosales 05/06 Active [facility] Procedures Procedure Code Date [place]fomer [place] [address] 02/03/2019 [facility] residual urine and/or bladder capacity by ultrasound, non-imaging XR, ribs, 09/22/2018 [facility] unilateral Family Practice MAMMO, screening, 09/08/2018 [facility] digital, bilateral [facility] Practice X-RAY OF CHEST 2 [id number] 08/07/2018 [facility] VIEW [facility] Practice X-RAY OF RIBS 75930 08/07/2018 [facility] UNILATERAL 2 VIEW Family Practice US, axilla 09/26/2017 [facility] Practice bone density 05/15/2017 [facility] X-RAY OF LUMBAR 17459 05/06/2017 [facility] SPINE 2 OR 3 VIEW Family [facility] MRI, brain + 03/27/2017 [facility] internal auditory Family canal, w/o contrast Practice US, abdomen, 12/11/2016 [facility] complete Family Practice X-RAY CERVICAL 43481 10/30/2016 [facility] SPINE 2 OR 3 VIEW Family Practice XR, thoracic spine, 10/30/2016 [facility] 2 view [facility] Practice XR, cervical spine 04/09/2016 [facility] bone density study 09/08/2015 [facility] Appendectomy [id number] 07/01/2007 [facility] Hysterectomy [id number] Medical Group Tonsillectomy and [id number] Medical adenoidectomy Group Hysterectomy [facility] (Partial) [facility] Appendectomy [id number] [facility] Tonsillectomy [facility] Hysterectomy [facility] (Total) [facility] Appendectomy [facility] Assessment and Plan No Data Provided for This Section Plan of Care No Data Provided for This Section Social History Social History Date Source Social History TypeResponse 02/03/2019 [facility] Smoking Status Never smoker; Exposure to Tobacco Smoke None; Cigarette Smoking Last 365 Days No; Reg Smoking Cessation Counseling Yes entered on: 02/03/19 No data available for this section 02/17/2017 [facility] Social History ElementQualifiersDate Reported 08/08/2016 [facility] Illegal/Recreational Drugs no. Aug 08, 2016 Alcohol no. Aug 08, 2016 Smoking . Status Never Smoker Aug 08, 2016 Smoking Status 02/20/2016 [facility] Never Smoker Family History No Data Provided for This Section Advance Directives No Data Provided for This Section Functional Status No Data Provided for This Section
--- OUTSIDE RECORDS SUMMARY | 2019-03-14 18:40 | XMS REPORT ---
:1940 Author Organization eClinicalWorks Care Team Providers Name Role Phone Sandor GENAO Provider Role Unavailable Allergies No Known Allergies Problems Problem Type Condition Code Onset Dates Condition Status Problem Screening for colon cancer Z12.11 Active Problem Constipation, unspecified K59.00 Active Problem Irritable bowel syndrome K58.9 Active Problem Bloating R14.0 Active Problem Right lower quadrant pain R10.31 Active Problem Personal history of colonic polyps Z86.010 Active Medications No Known Medications Results No Known Results Summary Purpose eClinicalRival IQ Submission
--- OUTSIDE RECORDS SUMMARY | 2019-03-14 18:40 | XMS REPORT ---
:1940 Author Organization eClinicalWorks Care Team Providers Name Role Phone Sandor GENAO Provider Role Unavailable Encounters Encounter Location Date Referral/Appointment [facility] Jun 13, 2016 [facility] Apr 11, 2016 [facility] Re[facility] Apr 24, 2016 Appointment/FYI [facility] May 16, 2016 Problems Problem Type Condition ICD-9 Code Onset Dates Condition Status Problem Constipation, unspecified K59.00 Active Problem Screening for colon cancer Z12.11 Active Problem Irritable bowel syndrome K58.9 Active Problem Right lower quadrant pain R10.31 Active Problem Personal history of colonic Z86.010 Active polyps Problem Bloating R14.0 Active Social History Social History Element Qualifiers Date Reported Illegal/Recreational Drugs no. Apr 11, 2016 Alcohol no. Apr 11, 2016 Smoking . Status Never Smoker Apr 11, 2016 Summary Purpose eClinicalWorks Submission
--- OUTSIDE RECORDS SUMMARY | 2019-03-14 18:40 | XMS REPORT ---
:1940 Author Organization eClinicalWorks Care Team Providers Name Role Phone Sandor GENAO Provider Role Unavailable Allergies, Adverse Reactions, Alerts Substance Reaction Event Type N.K.D.A. Info Not Available Non Drug Allergy Encounters Encounter Location Date [facility] Apr 11, 2016 Problems Problem Type Condition ICD-9 Code Onset Dates Condition Status Assessment Bloating R14.0 Active Assessment Irritable bowel syndrome K58.9 Active Problem Constipation, unspecified K59.00 Active Problem Screening for colon cancer Z12.11 Active Problem Irritable bowel syndrome K58.9 Active Problem Right lower quadrant pain R10.31 Active Assessment Constipation, unspecified K59.00 Active Problem Personal history of colonic Z86.010 Active polyps Problem Bloating R14.0 Active Medications Medication Code System Code Instructions Start End Status Dosage Date Date magnesium Unknown 0 as directed Active Unknown tizanidine MULTUM 81684 4 mg orally PRN Active 2 tab(s) Fish OIL Unknown 0 Active Unknown dicyclomine MULTUM 65857 20 mg orally Active 1 tab(s) Vitamin B Unknown 0 Active Unknown acyclovir MULTUM 36457 800 mg orally Active 1 tab(s) PRN clopidogrel MULTUM 77852 75 mg orally Active 1 tab(s) once a day simvastatin MULTUM 40959 40 mg orally Active 1 tab(s) once a day (at bedtime) Digestive Enzymes Unknown 0 Active as directed metoprolol MULTUM 57301 50 mg orally 2 Active 1 tab(s) times a day Calcium Unknown 0 Active Unknown probiotic tab Unknown 0 Active Unknown lisinopril MULTUM 88693 10 mg orally Active 1 tab(s) once a day Glucosamine & MULTUM 636474 Active Unknown Chondroitin with MSM alprazolam MULTUM 69294 0.25 mg orally Active 1 tab(s) PRN alendronate MULTUM 64809 70 mg orally Active 1 tab(s) once a week levothyroxine MULTUM 68377 50 mcg (0.05 mg) Active 1 tab(s) orally once a day Social History Social History Element Qualifiers Date Reported Illegal/Recreational Drugs no. Apr 11, 2016 Alcohol no. Apr 11, 2016 Smoking . Status Never Smoker Apr 11, 2016 Vital Signs Date/Time: Apr 11, 2016 Blood Pressure Systolic 152 mm Hg Weight 132 lbs Height 63 in Blood Pressure Diastolic 74 mm Hg Summary Purpose eClinicalWorks Submission
--- OUTSIDE RECORDS SUMMARY | 2019-03-14 18:40 | XMS REPORT ---
:1940 Author Organization eClinicalWorks Care Team Providers Name Role Phone Sandor GENAO Provider Role Unavailable Encounters Encounter Location Date [facility] [...]
--- OUTSIDE RECORDS SUMMARY | 2019-03-14 18:40 | XMS REPORT ---
:1940 Author Organization eClinicalWorks Care Team Providers Name Role Phone Sandor GENAO Provider Role Unavailable Encounters Encounter Location Date [facility] Apr 11, 2016 [facility] Requisition [facility] Apr 24, 2016 Problems Problem Type Condition ICD-9 Code [...]
--- OUTSIDE RECORDS SUMMARY | 2019-03-14 18:41 | XMS REPORT | Summary of Care ---
:1940 Author Organization [facility] Address [address] [place] [address]- Encounter HQ Encntr_alias(FIN) [id number] Date(s): 11/16/16 - 12/15/16 [facility] [id number] [place] [address] [address] [place] [address] [phone] Discharge Disposition: Home or Self Care Attending Physician: Noni Moise MD Referring Physician: Noni Moise MD Vital Signs No data available for this section Problem List No data available for this section Allergies, Adverse Reactions, Alerts No data available for this section Medications No data available for this section Results No data available for this section Immunizations No data available for this section Procedures No data available for this section Social History No data available for this section Assessment and Plan No data available for this section
--- OUTSIDE RECORDS SUMMARY | 2019-03-14 18:41 | XMS REPORT ---
:1940 Author Organization eClinicalWorks Care Team Providers Name Role Phone Sandor GENAO Provider Role Unavailable Encounters Encounter Location Date Referral/Appointment [facility] Jun 13, 2016 Lump around colon. [facility] Aug 08, 2016 Unknown [facility] Aug 27, 2016 [facility] Apr 11, [...] Element Qualifiers Date Reported Illegal/Recreational Drugs no. Aug 08, 2016 Alcohol no. Aug 08, 2016 Smoking . Status Never Smoker Aug 08, 2016 Summary Purpose eClinicalWorks Submission
--- OUTSIDE RECORDS SUMMARY | 2019-03-14 18:41 | XMS REPORT | Summary of Care ---
:1940 Author Organization [facility] Address [address] [facility] [place] [address]- Encounter HQ Encntr_alias(FIN) [id number] Date(s): 12/17/16 - 01/15/[address] [place] [address]- [phone] Discharge Disposition: Home or Self Care Attending Physician: Noni Moise MD Vital Signs No [...]
--- OUTSIDE RECORDS SUMMARY | 2019-03-14 18:41 | XMS REPORT | Summary of Care ---
:1940 Author Organization [facility] Address [address] [place] [address]- Encounter HQ Encntr_alias(FIN) [id number] Date(s): 01/18/17 - 02/16/[address] [place] [address]- [phone] Discharge Disposition: Home or Self Care Attending [...]
--- OUTSIDE RECORDS SUMMARY | 2019-03-14 18:41 | XMS REPORT | Summary of Care ---
:1940 Author Organization [facility] Address [address], [address] [place] [address]- Encounter HQ Encntr_alias(FIN) [id number] Date(s): 02/03/19 - 02/03/19 [facility] [address] [facility] [address] [place] [address] [phone] Discharge Disposition: Home or Self Care Attending Physician: Domo Rosales MD Vital Signs Most recent to oldest [Reference Range]: 1 Height 162.56 cm (02/03/19 1:37 PM) Blood Pressure [90-140/60-90 mmHg] 135/55 mmHg (02/03/19 1:37 PM) Peripheral Pulse Rate [60-100 bpm] 66 bpm (02/03/19 1:37 PM) Weight 60.682 kg (02/03/19 1:37 PM) Body Mass Index 22.96 m2 (02/03/19 1:37 PM) Problem List Condition Effective Dates Status Health Status Informant Urge incontinence(Confirmed) Active Urinary urgency(Confirmed) Active Allergies, Adverse Reactions, Alerts No Known Allergies Medications No Known Medications Results No data available for this section Immunizations No data available for this section Procedures Procedure Date Related Diagnosis Body Site Status Measurement of post-voiding residual 02/03/19 Completed urine and/or bladder capacity by ultrasound, non-imaging Appendectomy 2007 Completed Hysterectomy Completed Tonsillectomy and adenoidectomy Completed Social History Social History Type Response Smoking Status Never smoker; Exposure to Tobacco Smoke None; Cigarette Smoking Last 365 Days No; Reg Smoking Cessation Counseling Yes entered on: 02/03/19 Assessment and Plan No data available for this section
--- OUTSIDE RECORDS SUMMARY | 2019-03-14 18:41 | XMS REPORT | Summary of Care ---
:1940 Author Organization [facility] Address [address], [address] [place] [address]- Encounter HQ Encntr_jurgen(FIN) [id number] Date(s): 05/07/18 - 05/07/18 [facility] [address] [facility] [address] [place] [address] [phone] Discharge Disposition: Home or Self Care Attending Physician: Domo Rosales MD Referring Physician: Domo Rosales MD Vital Signs No data available for this section Problem List Condition Effective Dates Status Health Status Informant Urge incontinence(Confirmed) Active Urinary urgency(Confirmed) Active Allergies, Adverse Reactions, Alerts No Known Medication Allergies Medications Myrbetriq 50 mg oral tablet, extended release 50 mg=1 tab, PO, Daily, # 30 tab, 11 Refill(s), Pharmacy: [id number] Start Date: 05/09/18 Status: OrderedToviaz 4 mg oral tablet, extended release 4 mg=1 tab, PO, Daily, # 90 tab, 3 Refill(s), Pharmacy: [id number] Start Date: 05/07/18 Stop Date: 05/09/18 Status: DiscontinuedToviaz 4 mg oral tablet, extended release 4 mg=1 tab, PO, Daily, # 90 tab, 3 Refill(s), Pharmacy: [id number] Start Date: 07/25/18 Stop Date: 07/20/19 Status: Ordered Results No data available for this section Immunizations No data available for this section Procedures Procedure Date Related Diagnosis Body Site Status Measurement of post-voiding residual 05/07/18 Completed urine and/or bladder capacity by ultrasound, non-imaging Appendectomy 2007 Completed Hysterectomy Completed Tonsillectomy and adenoidectomy Completed Social History Social History Type Response Smoking Status Never smoker; Exposure to Tobacco Smoke None; Cigarette Smoking Last 365 Days No; Reg Smoking Cessation Counseling Yes entered on: 05/07/18 Assessment and Plan No data available for this section
--- OUTSIDE RECORDS SUMMARY | 2019-03-14 18:41 | XMS REPORT | Summary of Care ---
:1940 Author Organization [facility] Address [address] [place] [address]- Encounter HQ Encntr_alias(FIN) [id number] Date(s): 07/13/16 - 08/11/16 [facility] [address] [place] [address]. [address] [place] [address] [phone] Discharge Disposition: Home or Self Care Attending Physician: Rashmi Begum MD Referring Physician: Noni Moise MD Vital [...]
--- OUTSIDE RECORDS SUMMARY | 2019-03-14 18:41 | XMS REPORT ---
:1940 Author Organization eClinicalWorks Care Team Providers Name Role Phone Sandor GENAO Provider Role Unavailable Allergies, Adverse Reactions, Alerts Substance Reaction Event Type N.K.D.A. Info Not Available Non Drug Allergy Encounters Encounter Location Date Referral/Appointment [facility] Jun 13, 2016 Lump around colon. [facility] Aug 08, 2016 [facility] Apr 11, 2016 [facility] Requisition [facility] Apr 24, 2016 Appointment/FYI [facility] May 16, 2016 Problems Problem Type Condition ICD-9 Code Onset Dates Condition Status Assessment Constipation, unspecified K59.00 Active Problem Constipation, unspecified K59.00 Active Problem Screening for colon cancer Z12.11 Active Problem Irritable bowel syndrome K58.9 Active Problem Right lower quadrant pain R10.31 Active Assessment Abnormal weight loss R63.4 Active Problem Personal history of colonic Z86.010 Active polyps Problem Bloating R14.0 Active Medications Medication Code System Code Instructions Start End Status Dosage Date Date Circle Q Plus Unknown 0 Active as directed dicyclomine MULTUM 31674 20 mg orally Active 1 tab(s) levothyroxine MULTUM 20530 50 mcg (0.05 mg) Active 1 tab(s) orally once a day clopidogrel MULTUM 08854 75 mg orally Active 1 tab(s) once a day simvastatin MULTUM 60566 40 mg orally Active 1 tab(s) once a day (at bedtime) magnesium Unknown 0 as directed Active Unknown Fish OIL Unknown 0 Active Unknown Vitamin C MULTUM 1132 Active Unknown Pepsin, 500 g MULTUM 0589628 Active Unknown alendronate MULTUM 53454 70 mg orally Active 1 tab(s) once a week lisinopril MULTUM 74443 10 mg orally Active 1 tab(s) once a day tizanidine MULTUM 93948 4 mg orally PRN Active 2 tab(s) alprazolam MULTUM 95976 0.25 mg orally Active 1 tab(s) PRN Vitamin B Unknown 0 Active Unknown Glucosamine & MULTUM 701385 Active Unknown Chondroitin with MSM clonidine MULTUM 18550 0.1 mg orally Active 1 tab(s) PRN gabapentin MULTUM 85234 100 mg orally Active 2 cap(s) PRN Calcium Unknown 0 Active Unknown acyclovir MULTUM 12485 800 mg orally Active 1 tab(s) PRN metoprolol MULTUM 95614 50 mg orally 2 Active 1 tab(s) times a day Digestive Enzymes Unknown 0 Active as directed probiotic tab Unknown 0 Active Unknown Social History Social History Element Qualifiers Date Reported Illegal/Recreational Drugs no. Aug 08, 2016 Alcohol no. Aug 08, 2016 Smoking . Status Never Smoker Aug 08, 2016 Vital Signs Date/Time: Aug 08, 2016 Blood Pressure Systolic 151 mm Hg Weight 124 lbs Height 63 in Blood Pressure Diastolic 60 mm Hg Summary Purpose eClinicalWorks Submission
--- OUTSIDE RECORDS SUMMARY | 2019-03-14 18:41 | XMS REPORT | Summary of Care ---
:1940 Author Organization [facility] Address [address], [address] [place] [address]- Encounter HQ Donavonr_jurgen(FIN) [id number] Date(s): 04/09/18 - 04/09/18 [facility] [address] [facility] [address] [place] [address] [phone] Discharge Disposition: Home or Self Care Attending Physician: Domo Rosales MD Referring Physician: Domo Rosales MD Vital Signs Most recent to oldest [Reference Range]: 1 Blood Pressure [90-140/60-90 mmHg] 99/58 mmHg (04/09/18 2:24 PM) Peripheral Pulse Rate [60-100 bpm] 60 bpm (04/09/18 2:24 PM) Weight 60.909 kg (04/09/18 2:24 PM) Problem List Condition Effective Dates Status Health Status Informant Urge incontinence(Confirmed) Active Urinary urgency(Confirmed) Active Allergies, Adverse Reactions, Alerts No Known Medication Allergies Medications alendronate 70 mg oral tablet 70 mg=1 tab, PO, 0 Refill(s) Start Date: 04/09/18 Status: Orderedclopidogrel 75 mg oral tablet 75 mg=1 tab, PO, Daily, # 90 tab, 3 Refill(s) Start Date: 04/09/18 Status: Orderedescitalopram 5 mg oral tablet 10 mg=2 tab, PO, Daily, 0 Refill(s) Start Date: 04/09/18 Status: Orderedhydrochlorothiazide 25 mg oral tablet 25 mg=1 tab, PO, Daily, # 90 tab, 1 Refill(s) Start Date: 04/09/18 Status: Orderedlevothyroxine 50 mcg (0.05 mg) oral tablet 50 microgram=1 tab, PO, Daily, # 90 tab, 1 Refill(s) Start Date: 04/09/18 Status: Orderedlisinopril 10 mg oral tablet 10 mg=1 tab, PO, Daily, # 90 tab, 1 Refill(s) Start Date: 04/09/18 Status: Orderedmetoprolol succinate 50 mg oral capsule, extended release 50 mg=1 cap, PO, Daily, 0 Refill(s) Start Date: 04/09/18 Status: OrderedMyrbetriq 50 mg oral tablet, extended release 50 mg=1 tab, PO, Daily, # 28 tab, 0 Refill(s), given to patient Start Date: 04/09/18 Status: OrderedProbiotic Formula PO, Daily, 0 Refill(s) Start Date: 04/09/18 Status: Orderedsimvastatin 40 mg oral tablet 40 mg=1 tab, PO, Bedtime, # 90 tab, 0 Refill(s) Start Date: 04/09/18 Status: Ordered Results No data available for this section Immunizations No data available for this section Procedures Procedure Date Related Diagnosis Body Site Status Measurement of post-voiding residual 04/09/18 Completed urine and/or bladder capacity by ultrasound, non-imaging Appendectomy 2007 Completed Hysterectomy Completed Tonsillectomy and adenoidectomy Completed Social History Social History Type Response Smoking Status Never smoker; Exposure to Tobacco Smoke None; Cigarette Smoking Last 365 Days No; Reg Smoking Cessation Counseling Yes entered on: 05/07/18 Assessment and Plan No data available for this section
--- OUTSIDE RECORDS SUMMARY | 2019-03-14 18:41 | XMS REPORT | Summary of Care ---
:1940 Author Organization [facility] Address [address], [address] [place] [address]- Encounter HQ Encntr_alias(FIN) [id number] Date(s): 12/30/18 - 12/30/18 [facility] [address] [facility] [address] [place] [address]- [phone] Discharge Disposition: Home or Self Care Attending Physician: Doom Rosales MD Vital Signs No data available for this section Problem List Condition Effective Dates Status Health Status Informant Urge incontinence(Confirmed) Active Urinary urgency(Confirmed) Active Allergies, Adverse Reactions, Alerts No Known Allergies Medications oxybutynin 10 mg oral tablet, extended release 10 mg=1 tab, PO, Daily, # 30 tab, 11 Refill(s), Pharmacy: [facility] [id number] Start Date: 12/30/18 Status: Ordered Results No data available for this section Immunizations No data available for this section Procedures Procedure Date Related Diagnosis Body Site Status Measurement of post-voiding residual 12/30/18 Completed urine and/or bladder capacity by ultrasound, non-imaging Appendectomy 2007 Completed Hysterectomy Completed Tonsillectomy and adenoidectomy Completed Social History Social History Type Response Smoking Status Never smoker; Exposure to Tobacco Smoke None; Cigarette Smoking Last 365 Days No; Reg Smoking Cessation Counseling Yes entered on: 12/30/18 Assessment and Plan No data available for this section
--- OUTSIDE RECORDS SUMMARY | 2019-03-14 18:42 | XMS REPORT ---
:1940 Author Care Team Providers Name Role Phone NICOLAS PATO Mechanical Maintenance [phone] Sandor GENAO MD Senior C Web Developer [phone] KELSIE PECK MD Senior Gl Accountant [phone] ALBINO PECK MD Primary Care Provider [phone] Allergies Code Code System Name Reaction Severity Status Onset No Known Deactivated Allergies NKDA Medications Name Status Start Date Stop Date acetaminophen 300 mg-codeine 30 mg tablet Active Not available acyclovir Completed 03/30/2016 acyclovir 800 mg tablet Completed 09/09/2017 Take 1 tablet as needed by oral route for 10 days. alendronate 70 mg tablet Active Not available alprazolam 0.25 mg tablet Active Not available amoxicillin 500 mg capsule Completed 07/08/2017 amoxicillin 500 mg tablet Completed 07/08/2017 azelastine 0.05 % eye drops Active Not available INSTILL 1 DROP INTO AFFECTED EYE(S) BY OPHTHALMIC ROUTE 2 TIMES PER DAY Calcium 600 Active Not available 1 po BID cefdinir 300 mg capsule Completed 07/29/2017 ciprofloxacin 500 mg tablet Completed 02/20/2016 clonidine HCl 0.1 mg tablet Active Not available clopidogrel 75 mg tablet Active Not available codeine 10 mg-guaifenesin 100 mg/5 mL oral liquid Completed 07/29/2017 Take 10 mL every 4 hours by oral route as needed. collagen Active Not available 1 po tid Depo-Medrol 80 mg/mL suspension for injection Completed 07/29/2017 Take 1 mL by injection route. dexamethasone 4 mg/mL injection solution Completed 07/03/2017 Take 4 mg every day by injection route. dicyclomine 20 mg tablet Completed 02/18/2017 escitalopram 10 mg tablet Completed 02/20/2016 escitalopram 5 mg tablet Active Not available Fish Oil Completed 04/26/2017 1 PO QD Fluzone High-Dose 2812-3351 (PF) 180 Completed 04/26/2017 mcg/0.5 mL intramuscular syringe gabapentin 100 mg capsule Completed 02/18/2017 glucosamine 125 mg-chondroitin 100 mg-cartil 40 mg-collag 10 mg tablet Active Not available Take by oral route. hydrochlorothiazide 25 mg tablet Active Not available TAKE 1 TABLET BY MOUTH EVERY DAY hydrocodone 5 mg-acetaminophen 325 mg Completed 02/20/2016 tablet levothyroxine 50 mcg tablet Active Not available lisinopril 10 mg tablet Completed 10/26/2016 lisinopril 30 mg tablet Completed 09/09/2017 lisinopril 40 mg tablet Active Not available loratadine 10 mg tablet Completed 09/02/2017 Take 1 tablet every day by oral route. magnesium Active Not available 1 PO QD meclizine 25 mg tablet Completed 04/26/2017 metoprolol succinate ER 50 mg Active Not available tablet,extended release 24 hr naproxen 500 mg tablet Completed 04/26/2017 TAKE 1 TABLET BY MOUTH TWICE DAILY neomycin 3.5 mg/g-polymyxin B 10,000 Active Not available unit/g-dexameth 0.1 % eye oint nuvmhtyf-imizkcvco-kcsbzkbn 3.5 Completed 07/29/2017 mg/mL-10,000 unit/mL-0.1% eye drops nifedipine ER 30 mg tablet,extended release 24 hr Active Not available Take 1 tablet every day by oral route for 30 days. Papaya Enzyme tablet Active Not available Take 1 tablet every day by oral route. peg-electrolyte solution 420 gram oral Completed 02/20/2016 solution Probiotic Active Not available 1 PO QD sertraline 50 mg tablet Completed 02/20/2016 simvastatin 40 mg tablet Active Not available sulfamethoxazole 800 mg-trimethoprim 160 Active Not available mg tablet tizanidine 4 mg tablet Active Not available vitamin B complex Active Not available 1 PO QD Zostavax (PF) 19,400 unit/0.65 mL Completed 02/20/2016 subcutaneous suspension Problems Name Status Onset Date Source Hypothyroidism Active 05/31/2015 History Benign Hypertension Active 05/31/2015 History Chronic Low Back Pain Active 05/31/2015 History Osteoporosis Active 05/31/2015 History History of Cerebrovascular Accident Active 05/31/2015 History Exostosis Active 08/03/2015 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 History 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 History Dehiscence of Surgical Wound Unknown 12/21/2015 History Diverticular Disease of Colon Active 02/20/2016 Mitral Valve Disorder Active 03/30/2016 Body Mass Index 20-24 - Normal Active 04/26/2016 Senile Hyperkeratosis Active 05/03/2016 Scoliosis Deformity of Spine Active 05/21/2016 Anxiety State Active 05/29/2016 Ingrowing Nail Active 09/23/2016 Pain in Toe Active 11/14/2016 Mild Memory Disturbance Active 02/18/2017 Vertigo Active 03/27/2017 Left Bundle Branch Block Active 05/26/2017 Carotid Atherosclerosis Active 05/26/2017 Persistent Cough Active 07/03/2017 Chronic Back Pain Active 09/02/2017 Procedures Date Name Performed by Hysterectomy (Partial) Information not available Appendectomy Information not available 04/09/2016 XR, Cervical Spine [facility] [address] [place] [phone] (Work Place) 09/08/2015 Bone Density Study Information not available 10/30/2016 XR, Cervical Spine, 2 or 3 View [facility] [address] [place] [phone] (Work Place) 10/30/2016 XR, Lumbosacral Spine, 2 or 3 View [facility] [place] [id number] [place], [place] [address]way [address] [place] [phone] (Work Place) 10/30/2016 XR, Thoracic Spine, 2 View [facility] [address] [place] [phone] (Work Place) 12/11/2016 US, Abdomen, Complete [facility] [address] [place], [place] [id number] (Work Place) 03/27/2017 MRI, Brain + Internal Auditory [facility] Canal, W/o Contrast [address] [facility], [place] [phone] (Work Place) 05/06/2017 XR, Lumbosacral Spine, 2 or 3 View [facility] [place] [address] [facility] [address] [place] [phone] (Work Place) 05/15/2017 Bone Density [facility] [address] [place] [address] (Work Place) 09/26/2017 , [facility] [address] [place] [address] (Work Place) Lab Results Date Name Specimen Result Interpretation Description Value Range Status Address 09/26/2017 BMP, Normal Glucose 97 mg/dL 65-99 Final [facility] Serum or mg/dL Family Plasma Practice Laboratory: [address] Normal Urea Nitrogen 19 mg/dL 7-25 Final [facility] (BUN) mg/dL [facility] Practice Laboratory: [address] Normal Creatinine 0.82 mg/dL 0.60-0. Final [place] 93 Family mg/dL Practice Laboratory: [address] Normal eGFR Non-afr. 68 > or=60 Final [facility] Italian mL/min/1.73m mL/min/ Family 2 1.73m2 Practice Laboratory: [address] Normal eGFR 79 > or=60 Final [facility] Italian mL/min/1.73m mL/min/ Family 2 1.73m2 Practice Laboratory: [address] BUN/creatinine not 6-22 Final [facility] Ratio applicable (calc) Family (calc) Practice Laboratory: [address] Low Sodium 132 mmol/L 135-146 Final [place] mmol/L [facility] Practice Laboratory: [address] Normal Potassium 4.4 mmol/L 3.5-5.3 Final [facility] mmol/L Family Practice Laboratory: [address] Low Chloride 94 mmol/L 98-110 Final [place] mmol/L [facility] Practice Laboratory: [address] Normal Carbon Dioxide 29 mmol/L 20-31 Final [place] mmol/L [facility] Practice Laboratory: [address] Normal Calcium 9.8 mg/dL 8.6-10. Final [place] 4 mg/dL Family Practice Laboratory: [address] [place] 08/28/2017 BMP, Normal Glucose 91 mg/dL 65-99 Final [facility] Serum or mg/dL [facility] Plasma Practice Laboratory: [address] Normal Urea Nitrogen 18 mg/dL 7-25 Final [place] (BUN) mg/dL Family Practice Laboratory: [address] Normal Creatinine 0.74 mg/dL 0.60-0. Final [place] 93 Family mg/dL [facility] eGFR Non-afr. 77 > or=60 Final [place] Italian mL/min/1.73m mL/min/ Family 2 1.73m2 Practice Laboratory: [address] Normal eGFR 89 > or=60 Final [facility] Italian mL/min/1.73m mL/min/ Family 2 1.73m2 Practice Laboratory: [address] BUN/creatinine not 6-22 Final [place] Ratio applicable (calc) Family (calc) Practice Laboratory: [address] Low Sodium 133 mmol/L 135-146 Final [place] mmol/L Family Practice Laboratory: [address] Normal Potassium 4.8 mmol/L 3.5-5.3 Final [place] mmol/L Family Practice Laboratory: [address] Low Chloride 96 mmol/L 98-110 Final [place] mmol/L Family Practice Laboratory: [address] Normal Carbon Dioxide 31 mmol/L 20-31 Final [place] mmol/L Family Practice Laboratory: [address] Normal Calcium 9.8 mg/dL 8.6-10. Final [place] 4 mg/dL Family Practice Laboratory[facility] [facility] 08/07/2017 CMP, Normal Glucose 90 mg/dL 65-99 Final [place] Serum or mg/dL Family Plasma Practice Laboratory: [address] Normal Urea Nitrogen 18 mg/dL 7-25 Final [place] (BUN) mg/dL Family Practice Laboratory: [address] Normal Creatinine 0.75 mg/dL 0.60-0. Final [place] 93 Family mg/dL Practice Laboratory: [address] Normal eGFR Non-afr. 76 > or=60 Final [place] Italian mL/min/1.73m mL/min/ Family 2 1.73m2 Practice Laboratory: [address] Normal eGFR 88 > or=60 Final [place] Italian mL/min/1.73m mL/min/ Family 2 1.73m2 Practice Laboratory: [address] [place] BUN/creatinine not 6-22 Final [place] Ratio applicable (calc) Family (calc) Practice Laboratory: [address] [place] Low Sodium 127 mmol/L 135-146 Final [place] mmol/L Family Practice Laboratory: [address] [place] Normal Potassium 4.8 mmol/L 3.5-5.3 Final [place] mmol/L Family Practice Laboratory: [address] Low Chloride 89 mmol/L 98-110 Final [place] mmol/L Family Practice Laboratory: [address] [place] Normal Carbon Dioxide 29 mmol/L 20-31 Final [place] mmol/L Family Practice Laboratory: [address] [place] Normal Calcium 9.6 mg/dL 8.6-10. Final [place] 4 mg/dL Family Practice Laboratory: [address] [place] Normal Protein, Total 7.1 g/dL 6.1-8.1 Final [place] g/dL Family Practice Laboratory: [address] [place] Normal Albumin 4.3 g/dL 3.6-5.1 Final [place] g/dL Family Practice Laboratory: [address] [place] Normal Globulin 2.8 g/dL 1.9-3.7 Final [place] (calc) g/dL Family (calc) Practice Laboratory: [address] [place] Normal Albumin/globul 1.5 (calc) 1.0-2.5 Final [place] in Ratio (calc) Family Practice Laboratory: [address] [place] Normal Bilirubin, 0.7 mg/dL 0.2-1.2 Final [place] Total mg/dL Family Practice Laboratory: [address] [place] Normal Alkaline 52 U/L 33-130 Final [place] Phosphatase U/L Family Practice Laboratory: [address] [place] Normal Ast 26 U/L 10-35 Final [place] U/L Family Practice Laboratory: [facility] [facility] Normal Alt 17 U/L 6-29 Final [place] U/L Family Practice Laboratory: [address] [place] 07/29/2017 CMP, Normal Glucose 80 mg/dL 65-99 Final [facility] Serum or mg/dL Family Plasma Practice Laboratory: [address] [place] Normal Urea Nitrogen 15 mg/dL 7-25 Final [place] (BUN) mg/dL Family Practice Laboratory: [address] [place] Normal Creatinine 0.74 mg/dL 0.60-0. Final [place] 93 Family mg/dL Practice Laboratory: [address] [place] Normal eGFR Non-afr. 77 > or=60 Final [place] Italian mL/min/1.73m mL/min/ Family 2 1.73m2 Practice Laboratory: [address] [place] Normal eGFR 89 > or=60 Final [place] mL/min/1.73m mL/min/ Family 2 1.73m2 Practice Laboratory: [address] [place] BUN/creatinine not 6-22 Final [place] Ratio applicable (calc) Family (calc) Practice Laboratory: [address] [place] Low Sodium 129 mmol/L 135-146 Final [place] mmol/L Family Practice Laboratory: [facility] Normal Potassium 4.4 mmol/L 3.5-5.3 Final [place] mmol/L Family Practice Laboratory: [address] [place] Low Chloride 93 mmol/L 98-110 Final [place] mmol/L Family Practice Laboratory: [address] [place] Normal Carbon Dioxide 31 mmol/L 20-31 Final [place] mmol/L Family Practice Laboratory: [facility] [facility] Normal Calcium 9.6 mg/dL 8.6-10. Final [place] 4 mg/dL Family Practice Laboratory: [address] [place] Normal Protein, Total 6.9 g/dL 6.1-8.1 Final [place] g/dL Family Practice Laboratory: [facility] Normal Albumin 4.3 g/dL 3.6-5.1 Final [place] g/dL Family Practice Laboratory: [address] [place] Normal Globulin 2.6 g/dL 1.9-3.7 Final [place] (calc) g/dL Family (calc) Practice Laboratory: [address] [place] Normal Albumin/globul 1.7 (calc) 1.0-2.5 Final [place] in Ratio (calc) Family Practice Laboratory: [address] Normal Bilirubin, 0.5 mg/dL 0.2-1.2 Final [facility] Total mg/dL Family [facility] Laboratory: [facility] Lucrecia Fwjayson [address] Normal Alkaline 56 U/L 33-130 Final [facility] Phosphatase U/L Family Practice Laboratory: [address] [place], [place] [address]jayson [address] Normal Ast 27 U/L 10-35 Final [facility] U/L Family Practice Laboratory: [address] [place], [place] [address]j[address] Normal Alt 16 U/L 6-29 Final [facility] U/L Family Practice Laboratory: [address] [place], [place] [address]y j[place] [address], [place] 07/29/2017 T4, Free, Normal T4, Free 1.7 NG/dL 0.8-1.8 Final [facility] Serum NG/dL [facility] Laboratory: [address] [place], [place] [address]j[address] 07/29/2017 TSH, Normal Tsh 2.72 mIU/L 0.40-4. Final [facility] Serum or 50 Family Plasma mIU/L Practice Laboratory: [address] [place], [place] [address]y jayson [address] 07/29/2017 T3, Free, Low T3, Free 2.1 pg/mL 2.3-4.2 Final [facility] Serum or pg/mL [facility] Plasma Practice Laboratory: [address] [place], [place] [address]j[address] 02/18/2017 T3, Free, Normal T3, Free 2.5 pg/mL 2.3-4.2 Final [facility] Serum or pg/mL [facility] Plasma Practice Laboratory: [address] [place], [place] [address]y jayson [address] 02/18/2017 T4, Free, Normal T4, Free 1.6 NG/dL 0.8-1.8 Final [facility] Serum NG/dL [facility] Laboratory: [facility] Lucrecia jayson [address] 02/18/2017 CBC W/ Normal White Blood 6.2 3.8-10. Final [facility] Auto Diff [facility]: [facility] Lucrecia jayson [address] Normal Red Blood Cell 4.07 3.80-5. Final [facility] Count million/uL 10 [facility] million Practice /uL Laboratory: [facility] Lucrecia jayson [address] Normal Hemoglobin 12.9 g/dL 11.7-15 Final [place] .5 g/dL [facility] Laboratory: [address] [place], [place] [address]j[address] Normal Hematocrit 38.5 % 35.0-45 Final [place] .0 % Family Practice Laboratory: [facility] Slava [place] Normal Mcv 94.6 fL 80.0-10 Final [place] 0.0 fL Family Practice Laboratory: [address] Normal Mch 31.7 pg 27.0-33 Final [place] .0 pg Family Practice Laboratory: [address] Normal Mchc 33.5 g/dL 32.0-36 Final [place] .0 g/dL Family Practice Laboratory: [address] Normal [address]w 12.1 % 11.0-15 Final [place] .0 % Family Practice Laboratory: [address] Normal Platelet Count 246 140-400 Final [facility] thousand/uL thousan Family d/uL Practice Laboratory: [address] Normal Mpv 11.7 fL 7.5-12. Final [facility] 5 fL Family Practice Laboratory: [address] Normal Absolute 3894 1500-78 Final [facility] Neutrophils cells/uL 00 Family cells/u Practice L Laboratory: [address] Normal Absolute 1631 850-390 Final [facility] Lymphocytes cells/uL 0 Family cells/u Practice L Laboratory: [address] Normal Absolute 477 cells/uL 200-950 Final [facility] Monocytes cells/u Family L Practice Laboratory: [address] Normal Absolute 167 cells/uL 15-500 Final [facility] Eosinophils cells/u Family L Practice Laboratory: [address] Normal Absolute 31 cells/uL 0-200 Final [facility] Basophils cells/u Family L Practice Laboratory: [address] Normal Neutrophils 62.8 % Final [facility] Family Practice Laboratory: [address], Sl[place] Normal Lymphocytes 26.3 % Final [facility] Family Practice Laboratory: [address], Sl[place] Normal Monocytes 7.7 % Final [facility] Family Practice Laboratory: [address], Sl[place] Normal Eosinophils 2.7 % Final [facility] Family Practice Laboratory: [address]aves, [place] Normal Basophils 0.5 % Final [facility] Family Practice Laboratory: [address] 02/18/2017 CMP, Normal Glucose 85 mg/dL 65-99 Final [facility] Serum or mg/dL Family Plasma Practice Laboratory: [address], [place] Normal Urea Nitrogen 22 mg/dL 7-25 Final [place] (BUN) mg/dL Family Practice Laboratory: [address] [place] Normal Creatinine 0.82 mg/dL 0.60-0. Final [place] 93 Family mg/dL Practice Laboratory: [address] [place] Normal eGFR Non-afr. 69 > or=60 Final [facility] [place] mL/min/1.73m mL/min/ Family 2 1.73m2 Practice Laboratory: [address] [place] Normal eGFR 79 > or=60 Final [facility] [place] mL/min/1.73m mL/min/ Family 2 1.73m2 Practice Laboratory: [address] [place] BUN/creatinine not 6-22 Final [place] Ratio applicable (calc) [facility] (calc) Practice Laboratory: [address] [place] Normal Sodium 138 mmol/L 135-146 Final [place] mmol/L [facility] Practice Laboratory: [address] [place] Normal Potassium 4.4 mmol/L 3.5-5.3 Final [place] mmol/L [facility] Practice Laboratory: [address] [place] Normal Chloride 102 mmol/L 98-110 Final [place] mmol/L [facility] Practice Laboratory: [address] [place] Normal Carbon Dioxide 30 mmol/L 20-31 Final [place] mmol/L [facility] Practice Laboratory: [address] [place] Normal Calcium 9.5 mg/dL 8.6-10. Final [place] 4 mg/dL [facility] Practice Laboratory: [address] [place] Normal Protein, Total 6.6 g/dL 6.1-8.1 Final [place] g/dL [facility] Practice Laboratory: [facility] Normal Albumin 4.0 g/dL 3.6-5.1 Final [place] g/dL [facility] Practice Laboratory: [address] [place] Normal Globulin 2.6 g/dL 1.9-3.7 Final [place] (calc) g/dL [facility] (calc) Practice Laboratory: [address] [place] Normal Albumin/globul 1.5 (calc) 1.0-2.5 Final [place] in Ratio (calc) [facility] Practice Laboratory: [address] [place] Normal Bilirubin, 0.4 mg/dL 0.2-1.2 Final [facility] Total mg/dL Family Practice Laboratory: [address] Normal Alkaline 48 U/L 33-130 Final [facility] Phosphatase U/L Family Practice Laboratory: [address] Normal Ast 26 U/L 10-35 Final [facility] U/L Family Practice Laboratory: [address] Normal Alt 14 U/L 6-29 Final [facility] U/L Family Practice Laboratory: [address] 02/18/2017 Vitamin High Vitamin B12 1788 pg/mL 200-110 Final [facility] B12, 0 pg/mL Family Serum Practice Laboratory: [address] 02/18/2017 TSH, Normal Tsh 2.42 mIU/L 0.40-4. Final [facility] Serum or 50 [facility] Plasma mIU/L Practice Laboratory: [address] 12/11/2016 CMP, Normal Glucose 84 mg/dL 65-99 Final [facility] Serum or mg/dL [facility] Plasma Practice Laboratory: [facility] Lucre[address] Fwjayson [address] High Urea Nitrogen 26 mg/dL 7-25 Final [facility] (BUN) mg/dL Family Practice Laboratory: [address] Normal Creatinine 0.89 mg/dL 0.60-0. Final [place] 93 Family mg/dL Practice Laboratory: [address] Normal eGFR Non-afr. 62 > or=60 Final [facility] Italian mL/min/1.73m mL/min/ Family 2 1.73m2 Practice Laboratory: [address] Normal eGFR 72 > or=60 Final [facility] Italian mL/min/1.73m mL/min/ Family 2 1.73m2 Practice Laboratory: [address] High BUN/creatinine 29 (calc) 6-22 Final [facility] Ratio (calc) Family Practice Laboratory: [address] Normal Sodium 136 mmol/L 135-146 Final [place] mmol/L Family Practice Laboratory: [address] Normal Potassium 4.7 mmol/L 3.5-5.3 Final [place] mmol/L Family Practice Laboratory: [address] Normal Chloride 100 mmol/L 98-110 Final [place] mmol/L Family Practice Laboratory: [address] [place] Normal Carbon Dioxide 29 mmol/L 20-31 Final [place] mmol/L Family Practice Laboratory: [address] [place] Normal Calcium 9.4 mg/dL 8.6-10. Final [place] 4 mg/dL Family [facility] Laboratory: [address] [place] Normal Protein, Total 6.2 g/dL 6.1-8.1 Final [place] g/dL Family Practice Laboratory: [address] [place] Normal Albumin 3.7 g/dL 3.6-5.1 Final [facility] g/dL Family Practice Laboratory: [address] [place] Normal Globulin 2.5 g/dL 1.9-3.7 Final [place] (calc) g/dL Family (calc) Practice Laboratory: [address] [place] Normal Albumin/globul 1.5 (calc) 1.0-2.5 Final [facility] in Ratio (calc) Family Practice Laboratory: [address] [place] Normal Bilirubin, 0.5 mg/dL 0.2-1.2 Final [facility] Total mg/dL Family Practice Laboratory: [address] [place] Normal Alkaline 51 U/L 33-130 Final [facility] Phosphatase U/L Family Practice Laboratory: [address] [place] Normal Ast 24 U/L 10-35 Final [facility] U/L [facility] Practice Laboratory: 9[facility] Normal Alt 12 U/L 6-29 Final [facility] U/L [facility] Laboratory: [address] [facility] 12/11/2016 Lipase, High Lipase 61 U/L 7-60 Final [facility] Serum or U/L [facility] Plasma Practice Laboratory: [address] [facility] 12/11/2016 CBC W/ Normal White Blood 9.1 3.8-10. Final [facility] Auto Diff [facility] Laboratory: [address] [place] Normal Red Blood Cell 4.07 3.80-5. Final [facility] Count million/uL 10 [facility] million Practice /uL Laboratory: [address] [facility] Normal Hemoglobin 12.5 g/dL 11.7-15 Final [place] .5 g/dL Family [facility] Laboratory: 9[address] [facility] Normal Hematocrit 37.9 % 35.0-45 Final [place] .0 % Family Practice Laboratory: 9055 Sl[address] Carlos Normal Mcv 93.2 fL 80.0-10 [place] 0.0 fL Family Practice Laboratory: 9055 Slava Carlos Normal Mch 30.6 pg 27.0-33 [place] .0 pg Family Practice Laboratory: 9055 Slava Carlos Normal Mchc 32.9 g/dL 32.0-36 [place] .0 g/dL Family Practice Laboratory: 9055 Lucrecia Chaves, Slava Normal Rdw 14.2 % 11.0-15 [place] .0 % Family Practice Laboratory: 9055 Slava Carlos Normal Platelet Count 235 140-400 Final [facility] thousand/uL thousan Family d/uL Practice Laboratory: 9055 Slava Carlos Normal Mpv 9.9 fL 7.5-12. [place] 5 fL Family Practice Laboratory: 9055 Slava Carlos Normal Absolute 5842 1500-78 Final [facility] Neutrophils cells/uL 00 Family cells/u Practice L Laboratory: 9055 Slava Carlos Normal Absolute 2239 850-390 Final [facility] Lymphocytes cells/uL 0 Family cells/u Practice L Laboratory: 9055 Lucrecia Chaves, Slava Normal Absolute 555 cells/uL 200-950 Final [facility] Monocytes cells/u Family L Practice Laboratory: 9055 Lucrecia Chaves, Slava Normal Absolute 419 cells/uL 15-500 Final [facility] Eosinophils cells/u Family L Practice Laboratory: 9055 Slava Carlos Normal Absolute 46 cells/uL 0-200 [place] Basophils cells/u Family L Practice Laboratory: 9055 Lu[address] Chaves, Slava Normal Neutrophils 64.2 % Final [facility] Family Practice Laboratory: 9055 Lu[address] Chaves, Slava Normal Lymphocytes 24.6 % Final [facility] Family Practice Laboratory: 9055 [address] Chaves, Slava Normal Monocytes 6.1 % Final [facility] Family Practice Laboratory: 9055 Lu[address] Chaves, Slava Normal Eosinophils 4.6 % Final [facility] Family Practice Laboratory: 9055 Lucre[address] Chaves, Slava Normal Basophils 0.5 % Final [facility] Family Practice Laboratory: 9055 Slava Carlos 06/20/2016 Lipid Normal Cholesterol, 164 mg/dL 125-200 [place] Panel, Total mg/dL Family Serum Practice Laboratory: 9055 Slava Carlos Normal HDL 52 mg/dL > or=46 [place] Cholesterol mg/dL Family Practice Laboratory: 9[address] Lu[address] Chaves [place] Normal Triglycerides 98 mg/dL <150 [place] mg/dL Family Practice Laboratory: 9055 Lucre[address] Chaves [place] Normal LDL-cholestero 92 mg/dL <130 [place] l (calc) mg/dL Family (calc) Practice Laboratory: 9055 Lucre[address] Chaves [place] Normal Chol/hdlc 3.2 (calc) < [place] Ratio or=5.0 Family (calc) Practice Laboratory: 9055 Lu[address] Chaves [place] Normal Non HDL 112 mg/dL Final [facility] Cholesterol (calc) Family Practice Laboratory: 9055 Lucrecia Chaves, [place] 06/20/2016 Vitamin High Vitamin B12 1993 pg/mL 200-110 [place] B12, 0 pg/mL Family Serum Practice Laboratory: 9055 Lucre[address] Chaves [place] 06/20/2016 CBC W/ Normal White Blood 4.6 3.8-10. [place] Auto Diff [facility]: 9[address] Chaves [place] Normal Red Blood Cell 4.07 3.80-5. [place] Count million/uL 10 Family million Practice /uL Laboratory: 9[address] Lu[address] Chaves [place] Normal Hemoglobin 12.6 g/dL 11.7-15 [place] .5 g/dL Family Practice Laboratory: 9055 Lucre[address] Chaves [place] Normal Hematocrit 38.0 % 35.0-45 [place] .0 % Family Practice Laboratory: 9[address] Lu[address] Chaves [place] Normal Mcv 93.2 fL 80.0-10 [place] 0.0 fL Family Practice Laboratory: 9[address] Lucre[address] Chaves [place] Normal Mch 31.0 pg 27.0-33 [place] .0 pg Family Practice Laboratory: 9[address] Chaves [place] Normal Mchc 33.3 g/dL 32.0-36 [place] .0 g/dL Family Practice Laboratory: 9[address] Chaves [place] Normal Rdw 13.4 % 11.0-15 [place] .0 % Family Practice Laboratory: 9[address] Lucre[address] Chaves [place] Normal Platelet Count 198 140-400 [place] thousand/uL thousan Family d/uL Practice Laboratory: 9[address] Lucre[address] Chaves [place] Normal Mpv 9.6 fL 7.5-11. Final [facility] 5 fL Family Practice Laboratory: 9[address] Chaves [place] Normal Absolute 2309 1500-78 Final [facility] Neutrophils cells/uL 00 Family cells/u Practice L Laboratory: 9[address] Lu[address] Chaves [place] Normal Absolute 1808 850-390 Final [facility] Lymphocytes cells/uL 0 Family cells/u Practice [facility]: [facility] 382 cells/uL 200-950 Final [facility] Monocytes cells/u Family L Practice Laboratory: [facility] [facility] Normal Absolute 83 cells/uL 15-500 Final [facility] Eosinophils cells/u Family L Practice Laboratory: [address] [facility] Normal Absolute 18 cells/uL 0-200 Final [facility] Basophils cells/u Family L Practice Laboratory: [address] Lucrecia Tate [address] [place] [address] Normal Neutrophils 50.2 % [facility] Family Practice Laboratory: [address] Stacy [address] Normal Lymphocytes 39.3 % [facility] Family Practice Laboratory: [address] Chaves [place] Normal Monocytes 8.3 % [facility] Family Practice Laboratory: [address] Stacy [address] Normal Eosinophils 1.8 % [facility] Family Practice Laboratory: [address] Stacy [facility] Normal Basophils 0.4 % [facility] Family Practice Laboratory: [address] Stacy [address] 06/20/2016 Vitamin Normal Vitamin 56 NG/mL 30-100 [facility] D, D,25-Oh,total,i NG/mL [facility] 25-Hydrox a Practice y, Total, Laboratory: Serum 9055 Lucrecia Tate [address] [place] [address] 06/20/2016 TSH, Normal Tsh 2.88 mIU/L 0.40-4. Final [facility] Serum or 50 Family Plasma mIU/L Practice Laboratory: [facility] [facility] 06/20/2016 CMP, Normal Glucose 87 mg/dL 65-99 [facility] Serum or mg/dL Family Plasma Practice Laboratory: [address] Stacy [address] Normal Urea Nitrogen 16 mg/dL 7-25 [facility] (BUN) mg/dL Family Practice Laboratory: [address] jayson [address] Normal Creatinine 0.72 mg/dL 0.60-0. [place] 93 Family mg/dL Practice Laboratory: 9[address] Lu[address] Chaves [place] Normal eGFR Non-afr. 80 > or=60 [place] Italian mL/min/1.73m mL/min/ Family 2 1.73m2 Practice Laboratory: [address] Chaves [place] Normal eGFR 93 > or=60 [place] Italian mL/min/1.73m mL/min/ Family 2 1.73m2 Practice Laboratory: 9[address] Chaves [place] BUN/creatinine not 6-22 [place] Ratio applicable (calc) Family (calc) Practice Laboratory: 9[address] Chaves [place] Normal Sodium 141 mmol/L 135-146 [place] mmol/L [facility] Practice Laboratory: 9[address] Chaves [place] Normal Potassium 4.5 mmol/L 3.5-5.3 Final [facility] mmol/L [facility] Practice Laboratory: 9[address] Chaves [place] Normal Chloride 104 mmol/L 98-110 [place] mmol/L Family Practice Laboratory: 9[address] [facility] Normal Carbon Dioxide 29 mmol/L 20-31 [place] mmol/L Family Practice Laboratory: [address] Chaves [place] Normal Calcium 9.3 mg/dL 8.6-10. [place] 4 mg/dL Family Practice Laboratory: [address] Chaves [place] Normal Protein, Total 6.6 g/dL 6.1-8.1 [place] g/dL [facility] Practice Laboratory: [address] Chaves [place] Normal Albumin 3.9 g/dL 3.6-5.1 [place] g/dL Family Practice Laboratory: [address] Chaves [place] Normal Globulin 2.7 g/dL 1.9-3.7 [place] (calc) g/dL Family (calc) Practice Laboratory: 9[address] Chaves [place] Normal Albumin/globul 1.4 (calc) 1.0-2.5 [place] in Ratio (calc) [facility] Practice Laboratory: 9[address] Chaves [place] Normal Bilirubin, 0.6 mg/dL 0.2-1.2 Final [facility] Total mg/dL Family Practice Laboratory: 9[address] Chaves [place] Normal Alkaline 52 U/L 33-130 [place] Phosphatase U/L Family Practice Laboratory: [address] St[address] Normal Ast 29 U/L 10-35 Final [facility] U/L [facility] Laboratory: [address] St[address] Normal Alt 21 U/L 6-29 Final [facility] U/L [facility] Laboratory: [address] Stacy [address] 08/30/2015 Culture, Culture, Final [facility] Urine Urine, Routine [facility] Laboratory: [address] Stacy [place] [address], [place] Past Encounters 10/14/2017 Benign Hypertension; Body Mass Index 20-24 - Normal; Neck Pain; Abdominal Bloating Albino Peck MD: [id number] Lu[address] [facility], [facility] [address], [place] [address] , Ph. 09/26/2017 Body Mass Index 20-24 - Normal; Benign Hypertension; Visual Discomfort; Pain in Axilla Albino Peck MD: [id number] [facility], [facility] [address], [place] [address] , Ph. 09/17/2017 Benign Hypertension; Body Mass Index 20-24 - Normal Albino Peck MD: [id number] [facility], [address], [place] [address] , Ph. 09/09/2017 Benign Hypertension; Body Mass Index 20-24 - Normal; Benign Paroxysmal Positional Vertigo; Neck Pain Albino Peck MD: [id number] [facility], [address], [place] [address] , Ph. 09/02/2017 Body Mass Index 20-24 - Normal; Benign Hypertension; Hyponatremia; Chronic Back Pain Albino Peck MD: [id number] [facility], [address], [place] [address] , Ph. 07/29/2017 Body Mass Index 20-24 - Normal; Hypothyroidism; Diarrhea; Fatigue; Mixed Anxiety and Depressive Disorder; Diastolic Heart Failure Albino Peck MD: [id number] Lucrecia [facility], [address], [place] [address] , Ph. 07/08/2017 Allergic Conjunctivitis; Body Mass Index 20-24 - Normal; Persistent Cough ALEKSANDER Muse: 27361 Lucre[address] [employer], [address], [place] [address], Ph. 07/03/2017 Body Mass Index 20-24 - Normal; Persistent Cough Sanjeev Reyes MD: [id number] Lu[address] [employer], [address], [place] [address], Ph. 05/15/2017 Advance Directive Discussed with Patient; Depression Screening; Body Mass Index 20-24 - Normal; Screening for Osteoporosis Albino Peck MD: [id number] Lucre[address] [employer], [address], [place] [address] , Ph. 05/06/2017 Low Back Pain; Body Mass Index 20-24 - Normal; Acute Upper Respiratory Infection Albino Peck MD: [id number] Lu[address] [employer], [address], [place] [address] , Ph. 04/30/2017 Acute Pharyngitis Timbo Fink MD: [id number] [facility], [address], [place] [address], Ph. 04/26/2017 Acute Pharyngitis Jessica Concepcion MD: 9055 [facility], [address], [place] [address], Ph. [phone] 03/27/2017 Body Mass Index 20-24 - Normal; Vertigo; Chronic Low Back Pain; Benign Hypertension Albino Peck MD: [id number] Lu[address] [employer], [address], [place] [address] , Ph. 02/18/2017 Orthostatic Hypotension; Benign Hypertension; Anxiety State; Hypothyroidism; Mild Memory Disturbance Albino Peck MD: [id number] Lu[address] [employer], [address], [place] [address] , Ph. 01/04/2017 Simple Renal Cyst Albino Peck MD: [id number] [facility], [address], [place] [address] , Ph. 12/11/2016 Abdominal Pain Albino Peck MD: [facility], [facility] [address], [place] [address] , Ph. 11/21/2016 Ingrowing Nail; Pain in Toe Dari Puckett, DPM: [place] [address], [place] [address], Ph. 11/14/2016 Ingrowing Nail; Pain in Toe Dari Puckett, DPM: [facility], [place] [address], [place] [address], Ph. 10/30/2016 Low Back Pain AGATHA De La PazC: [address] [address], Ph. 10/26/2016 Chronic Low Back Pain; Scoliosis Deformity of Spine; Allergic Rhinitis; Anxiety State; Osteoporosis AGATHA De La PazC: [address] [address], Ph. 08/01/2016 Exostosis; Ingrowing Nail Dari Puckett, DPM: [address] [address], Ph. 07/23/2016 Benign Hypertension Rajesh Bernal, DO: [address] [address] , Ph. 06/19/2016 Fatigue; Hypothyroidism; Osteoporosis; Benign Hypertension; Open Wound; Rectal Polyp Noni Moise MD: [address] [address], Ph. 05/21/2016 Senile Hyperkeratosis; Scoliosis Deformity of Spine; Osteoporosis; Glaucoma Screening AGATHA De La PazC: [address] [address], [place] [address], Ph. 05/03/2016 Senile Hyperkeratosis; Idiopathic Peripheral Neuropathy; Body Mass Index 20-24 - Normal Tennille Brannon PA-C: 27169 [facility], [facility] [address], [place] [address], Ph. 04/26/2016 Senile Hyperkeratosis; Immunization; Body Mass Index 20-24 - Normal AGATHA De La PazC: 44779 [facility], [facility] [address], [place] [address], Ph. 04/09/2016 Cervical Radiculopathy; Inflamed Seborrheic Keratosis; Body Mass Index 20-24 - Normal Tennille Brannon PA-C: 05018 [facility], [facility] [address], [place] [address], Ph. 03/30/2016 Diverticular Disease of Colon; Mitral Valve Disorder; Inflamed Seborrheic Keratosis Tennille Brannon PA-C: 12111 [facility], [facility] [address], [place] [address], Ph. 03/16/2016 Inflamed Seborrheic Keratosis; Influenza Vaccination; Body Mass Index 20-24 - Normal Tennille Brannon PA-C: 50243 [facility], [facility] [address], [place] [address], Ph. 02/29/2016 Exostosis INEZ ModiM: [id number] [facility], [facility] [address], [place] [address], Ph. 02/20/2016 Irritable Bowel Syndrome; Ingrowing Toenail Tennille Brannon PA-C: 75917 [facility], [facility] [address], [place] [address], Ph. Social History Smoking Status Never Smoker Vaccine List Vaccine Type influenza, high dose seasonal 03/16/20160.5 mL 04/12/2017 influenza, injectable, quadrivalent, preservative free 03/01/2015 pneumococcal conjugate PCV 13 05/31/20151 mL pneumococcal polysaccharide PPV23 07/01/2002 Tdap 04/26/20160.5 mL zoster mL Plan of Care Patient Instructions It was good to see you in the office today for your Medicare Annual Wellness Visit. You have been provided some information on healthy nutrition, including a diet rich in fruits and vegetables, minimizing simple carbohydrates, salt, and saturated fats. I want to encourage regular card iovascular exercise such as walking at least 30 minutes daily, 5 times per week. Please remember to schedule any preventive health measures that we talked about today. You have also been provided education on fall prevention and community-based lifestyle interventions to help reduce health risks and promote healthy living in your [employer] folder. Screening Recommendations 1. Vaccines Pneumococcal: discussed today and information sent with patient in their [employer] health folder Influenza: discussed today and information sent with patient in their [employer] health folder Shingles: discussed today and information sent with patient in their [employer] health folder Tetanus: discussed today and information sent with patient in their [employer] health folder 2. Mammography Screening: discussed today and information sent with patient in their [employer] health folder 3. Colorectal cancer Screening Colonoscopy: discussed today and information sent with patient in their [employer] health folder Fecal Occult Blood: discussed today and information sent with patient in their [employer] health folder 4. Bone Mass Measurement: discussed today 5. Pap test / Pelvic Exam Screening: discussed today 6. Eye Exam Screening: discussed today 7. Cholesterol Screening: discussed today 8. Diabetes Screening: discussed today Reminders Provider Appointments None recorded. Lab None recorded. Referral None recorded. Procedures None recorded. Surgeries None recorded. Imaging None recorded. Vitals 10/14/2017 04:00PM Est Patient Height Weight BMI Blood Pressure 5 ft 3.75 in 132.8 lbs 23 kg/m2 121/62 mm[Hg] 09/26/2017 11:00AM Est Patient Height Weight BMI Blood Pressure 5 ft 3.75 in 129 lbs 22.3 kg/m2 (1) 122/45 mm[Hg] (2) 135/64 mm[Hg] 09/17/2017 04:15PM Est Patient Height Weight BMI Blood Pressure 5 ft 3.75 in 130 lbs 22.5 kg/m2 125/86 mm[Hg] 09/09/2017 03:30PM Work In Same Day Height Weight BMI Blood Pressure 5 ft 3.75 in 130 lbs 22.5 kg/m2 (1) 143/79 mm[Hg] (2) 154/57 mm[Hg] 09/02/2017 11:00AM Est Patient Height Weight BMI Blood Pressure 5 ft 3.75 in 128.8 lbs 22.3 kg/m2 (1) 128/109 mm[Hg] (2) 149/62 mm[Hg] 07/29/2017 11:00AM Est Patient Height Weight BMI Blood Pressure 5 ft 3.75 in 129.4 lbs 22.4 kg/m2 122/76 mm[Hg] 07/08/2017 02:00PM Urgent Care Visit Height Weight BMI Blood Pressure 5 ft 3.75 in 131.2 lbs 22.7 kg/m2 124/76 mm[Hg] 07/03/2017 03:00PM Est Patient Height Weight BMI Blood Pressure 5 ft 3.75 in 130.8 lbs 22.6 kg/m2 122/72 mm[Hg] 05/15/2017 11:45AM AWV Height Weight BMI Blood Pressure 5 ft 3.75 in 128 lbs 22.1 kg/m2 132/80 mm[Hg] 05/06/2017 11:45AM Est Patient Height Weight BMI Blood Pressure 5 ft 3.75 in 129.4 lbs 22.4 kg/m2 163/83 mm[Hg] 04/30/2017 06:00PM Est Patient Height Weight BMI Blood Pressure 5 ft 3.75 in 130.6 lbs 22.6 kg/m2 122/80 mm[Hg] 04/26/2017 01:30PM Est Patient Height Weight BMI Blood Pressure 5 ft 3.75 in 129.4 lbs 22.4 kg/m2 114/72 mm[Hg] 03/27/2017 12:15PM Work In Same Day Height Weight BMI Blood Pressure 5 ft 3.75 in 127.2 lbs 22 kg/m2 106/76 mm[Hg] 02/18/2017 02:45PM Est Patient Height Weight BMI Blood Pressure 5 ft 3.75 in 124 lbs 21.5 kg/m2 142/76 mm[Hg] 01/04/2017 11:30AM Work In Same Day Height Weight BMI Blood Pressure 5 ft 3.75 in 126 lbs 21.8 kg/m2 124/76 mm[Hg] 12/11/2016 11:45AM Est Patient Height Weight BMI Blood Pressure 5 ft 3.75 in 126 lbs 21.8 kg/m2 130/72 mm[Hg] 11/21/2016 03:00PM Podiatry Visit Height Weight Blood Pressure 5 ft 3.75 in 128/70 mm[Hg] 11/14/2016 03:15PM Podiatry Visit Height Weight BMI Blood Pressure 5 ft 3.75 in 125.4 lbs 21.7 kg/m2 160/76 mm[Hg] 10/26/2016 12:00PM Est Patient Height Weight BMI Blood Pressure 5 ft 3.75 in 125.4 lbs 21.7 kg/m2 140/70 mm[Hg] 08/01/2016 03:45PM Podiatry Visit Height Weight BMI Blood Pressure 5 ft 3.75 in 128.4 lbs 22.2 kg/m2 138/72 mm[Hg] 07/23/2016 10:45AM Work In Same Day Height Weight BMI Blood Pressure 5 ft 3.75 in 128.6 lbs 22.2 kg/m2 157/68 mm[Hg] 06/19/2016 03:15PM Est Patient Height Weight BMI Blood Pressure 5 ft 3.75 in 131.4 lbs 22.7 kg/m2 146/65 mm[Hg] 05/21/2016 11:30AM Est Patient Height Weight BMI Blood Pressure 5 ft 3.75 in 130.4 lbs 22.6 kg/m2 132/80 mm[Hg] 05/03/2016 09:15AM Work In Same Day Height Weight BMI Blood Pressure 5 ft 3.75 in 131.8 lbs 22.8 kg/m2 124/76 mm[Hg] 04/26/2016 02:30PM Est Patient Height Weight BMI Blood Pressure 5 ft 3.75 in 132.4 lbs 22.9 kg/m2 135/82 mm[Hg] 04/09/2016 11:45AM Work In Same Day Height Weight BMI Blood Pressure 5 ft 3.75 in 133.4 lbs 23.1 kg/m2 144/70 mm[Hg] 03/30/2016 12:30PM Est Patient Height Weight BMI Blood Pressure 5 ft 3.75 in 134 lbs 23.2 kg/m2 132/84 mm[Hg] 03/16/2016 02:45PM Work In Same Day Height Weight BMI Blood Pressure 5 ft 3.75 in 133.2 lbs 23 kg/m2 128/70 mm[Hg] 02/29/2016 11:15AM Est Patient Height Weight BMI Blood Pressure 5 ft 3.75 in 133 lbs 23 kg/m2 126/84 mm[Hg] 02/20/2016 12:15PM Work In Same Day Height Weight BMI Blood Pressure 5 ft 3.75 in 134.2 lbs 23.2 kg/m2 120/76 mm[Hg] 01/04/2016 Height Weight BMI Blood Pressure 5 ft 3.75 in 135.2 lbs 23.39 kg/m2 120/66 mm[Hg] 12/23/2015 Height Weight BMI Blood Pressure 5 ft 3.75 in 134.2 lbs 23.21 kg/m2 113/77 mm[Hg] 12/21/2015 Height Weight BMI Blood Pressure 5 ft 3.75 in 134 lbs 23.18 kg/m2 126/76 mm[Hg] 12/16/2015 Height Weight BMI Blood Pressure 5 ft 3.75 in 134 lbs 23.18 kg/m2 130/77 mm[Hg] 12/15/2015 Height Weight BMI Blood Pressure 5 ft 3.75 in 132.8 lbs 22.97 kg/m2 122/74 mm[Hg] 11/30/2015 Height Weight BMI Blood Pressure 5 ft 3.75 in 132.4 lbs 22.90 kg/m2 118/72 mm[Hg] 11/23/2015 Height Weight BMI Blood Pressure 5 ft 3.75 in 133.6 lbs 23.11 kg/m2 126/60 mm[Hg] 10/28/2015 Height Weight BMI Blood Pressure 5 ft 3.75 in 132 lbs 22.83 kg/m2 112/70 mm[Hg] 10/26/2015 Height Weight BMI 5 ft 3.75 in 133 lbs 23.01 kg/m2 10/26/2015 Height Weight BMI Blood Pressure 5 ft 3.75 in 133 lbs 23.01 kg/m2 142/80 mm[Hg] 10/12/2015 Height Weight BMI Blood Pressure 5 ft 3.75 in 131 lbs 22.66 kg/m2 130/88 mm[Hg] 08/30/2015 Height Weight BMI Blood Pressure 5 ft 3.75 in 132 lbs 22.83 kg/m2 124/78 mm[Hg] 08/03/2015 Height Weight BMI Blood Pressure 5 ft 3.75 in 132 lbs 22.83 kg/m2 140/72 mm[Hg] 07/13/2015 Height Weight BMI Blood Pressure 5 ft 3.75 in 135 lbs 23.35 kg/m2 122/80 mm[Hg] 05/31/2015 Height Weight BMI Blood Pressure 5 ft 3.5 in 134 lbs 23.36 kg/m2 130/78 mm[Hg]
--- OUTSIDE RECORDS SUMMARY | 2019-03-14 18:43 | XMS REPORT | Encounter Summary ---
:1940 Author Care Team Providers Name Role Phone Dr. Albino Hancock Primary Care Provider [phone] Albino Hancock MD Primary Care Provider [phone] Rubi Hancock MD Geotechnical Operating Engineer [phone] Ezequiel Husain Mail Room [phone] Sandor Monae MD Diesel Truck Technician [phone] Reason for Visit hospital follow up - [facility] ([facility]) Instructions 1. Fracture of rib acetaminophen 300 mg-codeine 30 mg tablet 2. Body mass index 20-24 - normal learning about healthy weight 3. Hospital patient transitional care management referral 4. Pain of left shoulder joint Discussion Note: None recorded. Plan of Care Patient Instructions Please follow up with your doctor in . Follow up with any specialists that we discussed during your visit today. If you need help getting your medications filled, our [facility] can sync medication refills, deliver within a 10 mile radius, or [employer] overnight at no additional cost. Please watch for warning symptoms that may occur: *fever *redness/oozing at surgical site *shortness of breath * uncontrolled pain *unexpected weight gain/loss *high or low blood pressure *chest pain *confusion *any other [facility] concerns Call us at if you experience these symptoms. In addition to these services our office offers social services counselor services, home health options and chronic conditions management. Please reach out to us with your particular needs. Evening and Saturday clinic hours are available if you have problems. If you have problems after hours, you can reach the [facility] physician communications equipment supervisor at . Reminders Provider Appointments Est Patient on or around Albino Patten 12/10/2018 MD [facility] None recorded. Referral Transitional 11/06/2018 Care Management Referral Procedures None recorded. Surgeries None recorded. Imaging None recorded. Medications Name Start Date acetaminophen 300 mg-codeine 30 mg tablet Take 1 tablet twice a day by oral route as needed for 10 days. alendronate 70 mg tablet TAKE 1 TABLET BY MOUTH ONCE A WEEK alprazolam 0.25 mg tablet TAKE 1 TABLET BY MOUTH DAILY NEEDED FOR ANXIETY betamethasone dipropionate 0.05 % topical cream APPLY A THIN LAYER TO THE AFFECTED AREA(S) BY TOPICAL ROUTE ONCE DAILY Calcium 600 1 po BID clopidogrel 75 mg tablet TAKE 1 TABLET BY MOUTH ONCE DAILY collagen 1 po tid escitalopram 5 mg tablet TAKE 1 TABLET BY MOUTH EVERY DAY gabapentin 100 mg capsule Take 2 capsules every day by oral route at bedtime. glucosamine 125 mg-chondroitin 100 mg-cartil 40 mg-collag 10 mg tablet Take by oral route. levothyroxine 50 mcg tablet TAKE 1 TABLET BY MOUTH EVERY DAY lisinopril 20 mg tablet Take 1 tablet every day by oral route. magnesium 1 PO QD metoprolol succinate ER 50 mg tablet,extended release 24 hr TAKE 1 TABLET BY MOUTH ONCE DAILY Myrbetriq 50 mg tablet,extended release Take 1 tablet every day by oral route. nystatin 100,000 unit/gram topical cream APPLY TO THE AFFECTED AREA(S) BY TOPICAL ROUTE 2 TIMES PER DAY Papaya Enzyme tablet Take 1 tablet as needed by oral route. simvastatin 40 mg tablet TAKE 1 TABLET BY MOUTH EVERY EVENING Toviaz 4 mg tablet,extended release Take 1 tablet every day by oral route for 30 days. vitamin B complex 1 PO QD Medications Administered None recorded. Vitals Height Weight BMI Blood Pressure 5 ft 3.75 in 136.4 lbs 23.6 kg/m2 139/64 mm[Hg] Lab Results None recorded. 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 History 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 History Diverticular Disease of Colon Active 02/20/2016 Mitral Valve Disorder Active 03/30/2016 Body Mass Index 20-24 - Normal Active 04/26/2016 Senile Hyperkeratosis Active 05/03/2016 Scoliosis Deformity of Spine Active 05/21/2016 Anxiety State Active 05/29/2016 Mild Memory Disturbance Active 02/18/2017 Vertigo Active 03/27/2017 Left Bundle Branch Block Active 05/26/2017 Carotid Atherosclerosis Active 05/26/2017 Persistent Cough Active 07/03/2017 Chronic Back Pain Active 09/02/2017 Peripheral Vascular Disease Active 01/22/2018 Procedures Date Name Performed by Tonsillectomy Information not available Hysterectomy (Total) Information not available Appendectomy Information not available Vaccine List Vaccine Type influenza, high dose seasonal 03/16/20160.5 mL 04/12/2017 influenza, injectable, quadrivalent 03/19/2018 influenza, injectable, quadrivalent, preservative free 03/01/2015 pneumococcal conjugate PCV 13 mL pneumococcal polysaccharide PPV23 07/01/2002 Tdap 04/26/20160.5 mL zoster mL Social History Smoking Status Never Smoker Past Encounters 11/06/2018 Fracture of Rib; Body Mass Index 20-24 - Normal; Hospital Patient; Pain of Left Shoulder Joint Albino Hancock MD: [id number] [facility], [address], [place] [address] , Ph. History of Present Illness TCM Provider Visit Reported By: Patient HPI: Timing: Date of admit:, Date of discharge:, Date of Initial Contact:, Please describe what events led up to this hospitalization:. Discharge Information: Discharge Diagnoses:, Discharged from: Other, Discharged to: Home, Hospital Records (H&P, DC Summary, Transition of Care Document) reviewed and scanned? Yes, Current Caregivers:family Note: [place] airport. had shoulder pain, left elbow pain and left wrist pain. improved now Review of Systems Comprehensive Adult Problem ROS Reported By: Patient Constitutional: Constitutional: good appetite, normal activity level Cardiovascular: Cardiovascular: no chest pain Respiratory: Respiratory: no cough, no wheezing Gastrointestinal: GI: no abdominal pain, no nausea, no vomiting Physical Exam General Adult Exam (male) Reported By: Patient Constitutional: Level of Distress: NAD Psychiatric: Mental Status: active and alert Eyes: Lids and Conjunctivae: non-injected Lungs: Respiratory effort: no dyspnea Neurologic: Coordination and Cerebellum: no tremor Notes: minimal tenderness in left shoulder noted
--- OUTSIDE RECORDS SUMMARY | 2019-03-14 18:43 | XMS REPORT | Encounter Summary ---
:1940 Author Care Team Providers Name Role Phone Dr. Albino Hancock Primary Care Provider [phone] Albino Hancock MD Primary Care Provider [phone] Rubi Hancock MD Online Media Director [phone] Ezequiel Husain Time Study Engineer [phone] Sandor Monae MD Non Destructive Testing Supervisor [phone] Reason for Visit other - see typed reason Instructions 1. Peripheral neuropathic pain gabapentin 100 mg capsule 2. Body mass index 20-24 - normal Discussion Note: None recorded.Patient educational handouts: No information available. Plan of Care Reminders Provider Appointments None recorded. Lab None [...] TABLET BY MOUTH DAILY NEEDED FOR ANXIETY Calcium 600 1 po BID clopidogrel 75 mg tablet TAKE 1 TABLET BY MOUTH ONCE DAILY collagen 1 po tid escitalopram 5 mg tablet TAKE 1 TABLET BY MOUTH EVERY DAY gabapentin 100 mg capsule Take 1 capsule 3 times a day by oral route as needed for 90 days. glucosamine 125 mg-chondroitin 100 mg-cartil 40 mg-collag 10 mg tablet Take by oral route. levothyroxine 50 mcg tablet TAKE 1 TABLET BY MOUTH EVERY DAY lisinopril 20 mg tablet Take 1 tablet every day by oral route. magnesium 1 PO QD metoprolol succinate ER 50 mg tablet,extended release 24 hr TAKE 1 TABLET BY MOUTH ONCE DAILY oxybutynin chloride ER 10 mg tablet,extended release 24 hr Take 1 tablet every day by oral route for 90 days. Papaya Enzyme tablet Take 1 tablet as needed by oral route. simvastatin 40 mg tablet TAKE 1 TABLET BY MOUTH EVERY EVENING valacyclovir 1 gram tablet Take 1 tablet every 12 hours by oral route. vitamin B complex 1 PO QD Medications Administered None recorded. Vitals Height Weight BMI Blood Pressure 5 ft 3.75 in 133.2 lbs 23 kg/m2 128/78 mm[Hg] Lab Results None recorded. Allergies Code [...] 03/01/2015 pneumococcal conjugate PCV 13 05/31/20151 mL 10/27/2018 pneumococcal polysaccharide PPV23 07/01/2002 Tdap 04/26/20160.5 mL zoster 08/30/20151 mL Social History Smoking Status Never Smoker Past Encounters 01/07/2019 Peripheral Neuropathic Pain; Body Mass Index 20-24 - Normal Silvino Liang MD: [id number] [facility], [address], [place] [address], Ph. History of Present Illness Note: She has c/o patch of skin left posterior shoulder and right lateral hip that medrano. Has a prescription for gabapentin for RLS that she has NOT been using. Review of Systems Comprehensive Adult Problem ROS Reported By: Patient Constitutional: Constitutional: no significant weight change, good appetite, no fever, happy/content, normal activity level, no fatigue Eyes: Eyes: no eye pain, no blurry vision, no eye redness, no eye itchiness, no eye swelling, no eye discharge, normal movement ENMT: ENMT: no ear pain, no ear discharge, no hearing loss, no sinus pressure, no facial swelling, no congestion, no sore throat, no hoarseness, no mouth lesions Cardiovascular: Cardiovascular: no chest pain, normal heart rate Chest/Breasts: Breasts: no lumps, no tenderness, no discharge Respiratory: Respiratory: no cough, no wheezing, no chest tightness, no pain with respiration, normal respiration Gastrointestinal: GI: no difficulty swallowing, no abdominal pain, no nausea, no vomiting, no diarrhea, no constipation, no blood in stools, no mucous in stool Genitourinary: : no discharge, no blood in urine, no pain with urination, no increase in frequency of urination, no voiding urgency, no vaginal discharge Musculoskeletal: Musculoskeletal: no soft tissue swelling, no joint swelling, no myalgia, moves all extremities well, no previous injuries, no trauma; chronic joint pain Skin: Skin: no itchiness, no skin dryness, no flaking, no redness, no rash, no diaper rash, no hives, no skin lesions, no skin growths, no skin lumps, no swelling, no bruising, no insect bites, pain Neurological symptoms: Neuro: no numbness, no weakness, no tingling, no shooting pain, no headache, no dizziness, no loss of consciousness, burning Psychiatric: Psych: no depression, no anxiety, no insomnia, no stress, no loss of interest Endocrine: Endocrine: normal drinking, no temperature intolerance Allergic/Immunologic: Allergy/Immunologic: no sneezing, no runny nose Physical Exam General Adult Exam (Female) Reported By: Patient Constitutional: General Appearance: well-nourished. Level of Distress: mild distress. Ambulation: ambulating normally Psychiatric: Insight: good judgement. Mental Status: active and alert, normal mood, normal affect Head: Head: normocephalic, atraumatic Eyes: Lids and Conjunctivae: non-injected. Pupils: PERRLA. EOM: EOMI Neck: Neck: tender. Lymph Nodes: no cervical LAD, no supraclavicular LAD. Thyroid: no enlargement Lungs: Respiratory effort: no dyspnea. Percussion: no dullness, flatness, or hyperresonance. Auscultation: breath sounds normal, good air movement, CTA except as noted, no wheezing, no rales/crackles, no rhonchi Musculoskeletal:: Motor Strength and Tone: normal motor strength, normal tone. Joints, Bones, and Muscles: tenderness; cervical spine Neurologic: Gait and Station: normal gait, normal station. Cranial Nerves: grossly intact. Sensation: grossly intact, monofilament test intact. Coordination and Cerebellum: no tremor Skin: Inspection and palpation: no rash, no lesions, no ulcer, no abnormal nevi, no induration, good turgor, no jaundice; hand sized area of skin left trapezius area and right lateral hip-- burning sensation
--- OUTSIDE RECORDS SUMMARY | 2019-03-14 18:43 | XMS REPORT | Encounter Summary ---
:1940 Author Care Team Providers Name Role Phone Dr. Albino Hancock Primary Care Provider [phone] Albino Hancock MD Primary Care Provider [phone] Rubi Hancock MD Municipal Engineer [phone] Ezequiel Husain Director Of Math [phone] Sandor Monae MD Valve Grinder [phone] Reason for Visit hospital follow up - TCM ([facility]) Instructions 1. Body mass index 20-24 - normal learning about healthy weight 2. Benign hypertension 3. Screening mammography mammogram: about this test MAMMO, screening, digital, bilateral 4. Lightheadedness Discussion Note: None recorded. Plan of Care Reminders Provider Appointments Est Patient on or around Albino Patten 12/10/2018 MD [facility] None recorded. Referral None recorded. Procedures None recorded. Surgeries None recorded. Imaging MAMMO, 09/08/2018 [facility] Screening, Digital, Practice Radiology Bilateral [facility] Medications Name Start Date acetaminophen 300 mg-codeine 30 mg tablet Take 1 tablet twice a day by oral route for 15 days. acyclovir 800 mg tablet Take 1 tablet every day by oral route as needed for 10 days. alendronate 70 mg tablet TAKE 1 TABLET BY MOUTH ONCE A WEEK alprazolam 0.25 mg tablet TAKE 1 TABLET BY MOUTH DAILY NEEDED FOR ANXIETY betamethasone dipropionate 0.05 % topical cream APPLY A THIN LAYER TO THE AFFECTED AREA(S) BY TOPICAL ROUTE ONCE DAILY Calcium 600 1 po BID clonidine HCl 0.1 mg tablet Take 1 tablet as needed by oral route as needed. clopidogrel 75 mg tablet TAKE 1 TABLET [...] 1 tablet every day by oral route. loratadine 10 mg tablet Take 1 tablet as needed by oral route. magnesium 1 PO QD meclizine 12.5 mg tablet Take 1 tablet 3 times a day by oral route for 10 days. metoprolol succinate ER 50 mg tablet,extended release 24 hr TAKE 1 TABLET BY MOUTH ONCE DAILY Myrbetriq 50 mg tablet,extended release Take 1 tablet every day by oral route. nystatin 100,000 unit/gram topical cream APPLY TO THE AFFECTED AREA(S) BY TOPICAL ROUTE 2 TIMES PER DAY Papaya Enzyme tablet Take 1 tablet as needed by oral route. Probiotic 1 PO QD simvastatin 40 mg tablet TAKE 1 TABLET BY MOUTH EVERY EVENING tizanidine 4 mg tablet Toviaz 4 mg tablet,extended release Take 1 tablet every day by oral route for 30 days. Tylenol 1 PO QD vitamin B complex 1 PO QD Medications Administered None recorded. Vitals Height Weight BMI Blood Pressure 5 ft 3.75 in 137.2 lbs 23.7 kg/m2 (1) 128/65 mm[Hg] (2) 132/64 mm[Hg] Lab Results None recorded. Allergies Code [...] Information not available Appendectomy Information not available 09/08/2018 MAMMO, Screening, Digital, Bilateral [facility] Radiology [facility] [place] [address] [facility] [address] [place] [address] (Work Place) Vaccine List Vaccine Type influenza, high dose seasonal 03/16/20160.5 mL 04/12/2017 influenza, injectable, quadrivalent 03/19/2018 influenza, injectable, quadrivalent, preservative free 03/01/2015 pneumococcal conjugate PCV 13 mL pneumococcal polysaccharide PPV23 07/01/2002 Tdap 04/26/20160.5 mL zoster mL Social History Smoking Status Never Smoker Past Encounters 09/08/2018 Body Mass Index 20-24 - Normal; Benign Hypertension; Screening Mammography; Lightheadedness Albino Hancock MD: [id number] [facility], [address], [place] [address] , Ph. History of Present Illness Hypertension F/U Reported By: Patient HPI: Medications: taking medications as directed, no side effects from medication. Associated Symptoms: no dizziness, no lightheadedness, no chest pain, no shortness of breath, no palpitations, no edema, no calf pain with exertion, no headache Notes: fell twice last month. went to ER. did see a oracle applications analyst. meds were adjusted. BP went up recently. Note: feels little weak in legs x several weeks. Review of Systems Comprehensive Adult Problem ROS Reported By: Patient Constitutional: Constitutional: good appetite, normal activity level Cardiovascular: Cardiovascular: no chest pain Respiratory: Respiratory: no cough, no wheezing Gastrointestinal: GI: no abdominal pain, no nausea, no vomiting Neurological symptoms: Neuro: no numbness, no weakness, no tingling Physical Exam General Adult Exam (male) Reported By: Patient Constitutional: Level of Distress: NAD Psychiatric: Mental Status: active and alert Eyes: Lids and Conjunctivae: non-injected Lungs: Respiratory effort: no dyspnea. Auscultation: breath sounds normal Cardiovascular: Heart Auscultation: RRR; Normal rate Neurologic: Coordination and Cerebellum: no tremor Skin: Inspection and palpation: ; No pallor, jaundice, or diaphoresis
--- OUTSIDE RECORDS SUMMARY | 2019-03-14 18:43 | XMS REPORT | Encounter Summary ---
:1940 Author Care Team Providers Name Role Phone Dr. Albino Hancock Primary Care Provider [phone] Albino Hancock MD Primary Care Provider [phone] Rubi Hancock MD B2[employer] Outside Sales Representative [phone] Ezequiel Husain Die Developer [phone] Sandor Monae MD Instrument Repairer [phone] Reason for Visit Left rib pain Instructions 1. Body mass index 20-24 - normal learning about healthy weight 2. Rib pain XR, ribs, unilateral, 2 view 3. Chest pain XR, chest, 2 view 4. Diastolic heart failure 5. Peripheral vascular disease Discussion Note: None recorded. Plan of Care Reminders Provider Appointments Est on or around Albino Patten Patient 12/10/2018 MD [facility] None recorded. Referral None recorded. Procedures None recorded. Surgeries None recorded. Imaging XR, 08/07/2018 [facility] Chest, 2 View [facility] Radiology [facility] XR, Ribs, 08/07/2018 [facility] Unilateral, 2 View Practice Radiology [facility] Medications Name Start Date acetaminophen 300 mg-codeine 30 mg tablet Take 1 tablet every day by oral route for 30 days. acyclovir 800 mg tablet Take 1 tablet every day by oral route as needed for 10 days. alendronate 70 mg tablet TAKE 1 TABLET BY MOUTH ONCE A WEEK alprazolam 0.25 mg tablet TAKE 1 TABLET BY MOUTH DAILY NEEDED FOR ANXIETY amoxicillin 875 mg tablet Take 1 tablet every 12 hours by oral route. Bepreve 1.5 % eye drops betamethasone dipropionate 0.05 % topical cream APPLY [...] 10 mg tablet Take by oral route. hydrochlorothiazide 25 mg tablet TAKE 1 TABLET BY MOUTH EVERY DAY levothyroxine 50 mcg tablet TAKE 1 TABLET BY MOUTH EVERY DAY lisinopril 40 mg tablet TAKE 1 TABLET BY MOUTH EVERY DAY loratadine 10 mg tablet Take 1 tablet [...] mg tablet Toviaz 4 mg tablet,extended release Tylenol 1 PO QD vitamin B complex 1 PO QD Medications Administered None recorded. Vitals Height Weight BMI Blood Pressure 5 ft 3.75 in 138 lbs 23.9 kg/m2 126/67 mm[Hg] Lab Results None recorded. Allergies Code [...] Active 01/22/2018 Procedures Date Name Performed by Hysterectomy (Partial) Information not available Appendectomy Information not available 08/07/2018 XR, Chest, 2 View [facility] Radiology [facility] [place] [address] [facility] [address] [place] [address] (Work Place) 08/07/2018 XR, Ribs, Unilateral, 2 View [facility] Radiology [facility] [place] [address] [facility] [address] [place] [address] (Work Place) Vaccine List Vaccine Type influenza, high dose seasonal 03/16/20160.5 mL 04/12/2017 influenza, injectable, quadrivalent 03/19/2018 influenza, injectable, quadrivalent, preservative free 03/01/2015 pneumococcal conjugate PCV 13 mL pneumococcal polysaccharide PPV23 07/01/2002 Tdap 04/26/20160.5 mL zoster mL Social History Smoking Status Never Smoker Past Encounters 08/07/2018 Body Mass Index 20-24 - Normal; Rib Pain; Chest Pain; Diastolic Heart Failure; Peripheral Vascular Disease Albino Hancock MD: [id number] [facility], [address], [place] [address] , Ph. History of Present Illness Note: left rib pain x 4 days. -11/07. aching pain. movement makes it worse. rest makes it better. denies chest pain, sob. Review of Systems Comprehensive Adult Problem ROS [...]
--- OUTSIDE RECORDS SUMMARY | 2019-03-14 18:43 | XMS REPORT | Encounter Summary ---
:1940 Author Care Team Providers Name Role Phone Dr. Albino Hancock Primary Care Provider [phone] Albino Hancock MD Primary Care Provider [phone] Rubi Hancock MD Inseam Trimming Machine Operator [phone] Ezequiel Husain Sales Executive Insurance [phone] Sandor Monae MD Graphic Art Sales Representative [phone] Reason for Visit other - see typed reason Instructions 1. Fracture of rib XR, ribs, unilateral 2. Gastroesophageal reflux disease without esophagitis Discussion Note: None recorded.Patient educational handouts: No information available. Plan of Care Reminders Provider Appointments Est Patient on or around Albino Patten 12/10/2018 MD [facility] None recorded. Referral None recorded. Procedures None recorded. Surgeries None recorded. Imaging XR, Ribs, 09/22/2018 [facility] Radiology [facility] Medications Name Start Date acetaminophen 300 mg-codeine 30 mg tablet Take 1 tablet twice a day by oral route for 15 days. alendronate 70 mg tablet TAKE 1 [...] Pressure 5 ft 3.75 in 135 lbs 23.4 kg/m2 122/74 mm[Hg] Lab Results None recorded. Allergies Code [...] not available 09/08/2018 MAMMO, Screening, Digital, Bilateral [facility] [address] [place] [address] (Work Place) 09/22/2018 XR, Ribs, Unilateral [facility] Radiology [facility] [place] [address] [facility] [address] [place] [address] (Work Place) Vaccine List Vaccine Type influenza, high dose seasonal 03/16/20160.5 mL 04/12/2017 influenza, injectable, quadrivalent 03/19/2018 influenza, injectable, quadrivalent, preservative free 03/01/2015 pneumococcal conjugate PCV 13 mL pneumococcal polysaccharide PPV23 07/01/2002 Tdap 04/26/20160.5 mL zoster mL Social History Smoking Status Never Smoker Past Encounters 09/22/2018 Fracture of Rib; Gastroesophageal Reflux Disease without Esophagitis Albino Hancock MD: [id number] [facility], [address], [place] [address] , Ph. 09/08/2018 Body Mass Index 20-24 - Normal; Benign Hypertension; Screening Mammography; Lightheadedness Albino Hancock MD: [id number] [facility], [address], [place] [address] , Ph. History of Present Illness Note: gerd x 1 year. takes papaya tablet as needed. dry cough sometimes because of this. <div>
</div><div>left rib fracture - denies any new symptom. feels good. here for xray.</div> Review of Systems Comprehensive Adult Problem ROS [...]
--- OUTSIDE RECORDS SUMMARY | 2019-03-14 18:43 | XMS REPORT | Encounter Summary ---
:1940 Author Care Team Providers Name Role Phone Dr. Albino Hancock Primary Care Provider [phone] Albino Hancock MD Primary Care Provider [phone] Rubi Hancock MD Assessment Consultant [phone] Ezequiel Husain Stage Producer [phone] Sandor Monae MD Counter Tacker [phone] Reason for Visit other - see typed reason Instructions 1. Body mass index 20-24 - normal 2. Ankle pain podiatry referral - Provider ID [id number] 3. Benign hypertension game designer/dietitian referral 4. Herpes zoster Discussion Note: None recorded.Patient educational handouts: No information available. Plan of Care Reminders Provider Appointments None recorded. Lab None recorded. Referral Podiatry Fredi Hess MD Referral 11/28/2018 Geological Technician/dietitian 11/28/2018 Referral Procedures None recorded. Surgeries None recorded. [...] TAKE 1 TABLET BY MOUTH ONCE DAILY nystatin 100,000 unit/gram topical cream APPLY TO THE AFFECTED AREA(S) BY TOPICAL ROUTE 2 TIMES PER DAY Papaya Enzyme tablet Take 1 tablet as needed by oral route. simvastatin 40 mg tablet TAKE 1 TABLET BY MOUTH EVERY EVENING Toviaz 4 mg tablet,extended release Take 1 tablet every day by oral route for 30 days. valacyclovir 1 gram tablet Take 1 tablet every 12 hours by oral route. vitamin B complex 1 PO QD Medications Administered None recorded. Vitals Height Weight BMI Blood Pressure 5 ft 3.75 in 133.8 lbs 23.1 kg/m2 (1) 147/61 mm[Hg] (2) 153/71 mm[Hg] Lab Results None recorded. Allergies Code [...] History Smoking Status Never Smoker Past Encounters 11/28/2018 Body Mass Index 20-24 - Normal; Ankle Pain; Benign Hypertension; Herpes Zoster Albino Hancock MD: [id number] [facility] [address], [place] [address] , Ph. 11/21/2018 Herpes Labialis Evie Conley MD: [id number], [place] [address], Ph. 11/06/2018 Fracture of Rib; Body Mass Index 20-24 - Normal; Hospital Patient; Pain of Left Shoulder Joint Albino Hancock MD: [id number] [address], [place] [address] , Ph. History of Present Illness Note: herpes zoster - here for f/up. rash has improved. no new change . < div>ankle pain - here for referral. did have injection in the past</div&gt ; Review of Systems Comprehensive Adult Problem ROS Reported By: Patient Constitutional: Constitutional: good appetite, normal activity level Cardiovascular: Cardiovascular: no chest pain Respiratory: Respiratory: no cough, no wheezing Gastrointestinal: GI: no abdominal pain, no nausea, no vomiting Neurological symptoms: Neuro: no dizziness Physical Exam General Adult Exam (male) Reported By: Patient Constitutional: Level of Distress: NAD Psychiatric: Mental Status: active and alert Eyes: Lids and Conjunctivae: non-injected Lungs: Respiratory effort: no dyspnea Neurologic: Coordination and Cerebellum: no tremor Skin: Inspection and palpation: rash
--- OUTSIDE RECORDS SUMMARY | 2019-03-14 18:43 | XMS REPORT | Encounter Summary ---
:1940 Author Care Team Providers Name Role Phone Dr. Albino Hancock Primary Care Provider [phone] Albino Hancock MD Primary Care Provider [phone] Rubi Hancock MD Public Health Nutritionist [phone] Ezequiel Husain Utility Repairer [phone] Sandor Monae MD Medical Physics Teacher [phone] Reason for Visit skin problem/rash Instructions 1. Herpes labialis valacyclovir 1 gram tablet Discussion Note: None recorded.Patient educational handouts: No information available. Plan of Care Reminders Provider Appointments Est 11/28/2018 Albino Patten Patient 11:00AM MD Karissa Est on or around Albino Patten Patient [...] ft 3.75 in 134 lbs 23.2 kg/m2 136/74 mm[Hg] Lab Results None recorded. Allergies Code [...] History Smoking Status Never Smoker Past Encounters 11/21/2018 Herpes Labialis Evei Conley MD: [id number] [facility], [address], [place] [address], Ph. [phone] 11/06/2018 Fracture of Rib; Body Mass Index 20-24 - Normal; Hospital Patient; Pain of Left Shoulder Joint Albino Hancock MD: [id number] [facility], [address], [place] [address] , Ph. History of Present Illness Note: Vesicular rash on vulva. Reoccurring. Recent hospitalization for fr ribs. Review of Systems None recorded. Physical Exam Notes: Vesicular rash on vulva.
--- OUTSIDE RECORDS SUMMARY | 2019-03-14 18:45 | XMS REPORT | Encounter Summary ---
:1940 Author Care Team Providers Name Role Phone Dr. Albino Hancock Primary Care Provider [phone] Albino Hancock MD Primary Care Provider [phone] Rubi Hancock MD Tube Man [phone] Ezequiel Husain Transport Medic [phone] Sandor Monae MD Gray Mixing Operator [phone] Reason for Visit other - see typed reason Instructions 1. Posterior rhinorrhea fluticasone propionate 50 mcg/actuation nasal spray,suspension 2. Pain of right ankle joint Discussion Note: None recorded.Patient educational handouts: No information available. Plan of Care Reminders Provider Appointments None recorded. Lab None recorded. Referral None recorded. Procedures None recorded. Surgeries None recorded. Imaging None recorded. Medications Name Start Date acetaminophen 300 mg-codeine 30 mg tablet TAKE 1 TABLET BY MOUTH TWICE DAILY FOR 10 DAYS NEEDED alendronate 70 mg tablet TAKE 1 TABLET BY MOUTH ONCE A WEEK alprazolam 0.25 mg tablet TAKE 1 TABLET BY MOUTH DAILY NEEDED FOR ANXIETY Calcium 600 1 po BID clopidogrel 75 mg tablet TAKE 1 TABLET BY MOUTH ONCE DAILY collagen 1 po tid escitalopram 5 mg tablet TAKE 1 TABLET BY MOUTH EVERY DAY fluticasone propionate 50 mcg/actuation nasal spray,suspension 2 puffs EN daily gabapentin 100 mg capsule Take 1 capsule 3 times a day by oral route as needed for 90 days. glucosamine 125 mg-chondroitin 100 mg-cartil 40 mg-collag 10 mg tablet Take by oral route. hydrochlorothiazide 12.5 mg tablet Take 1 tablet 3 times a week by oral route. levothyroxine 50 mcg tablet [...] BMI Blood Pressure 5 ft 3.75 in 134.4 lbs 23.2 kg/m2 (1) 160/61 mm[Hg] (2) 136/59 mm[Hg] Lab Results None recorded. Allergies Code [...] Active 09/02/2017 Peripheral Vascular Disease Active 01/22/2018 Posterior Rhinorrhea Active 02/17/2019 Procedures Date Name Performed by Tonsillectomy Information not available Hysterectomy (Total) Information not available Appendectomy Information not available Vaccine List Vaccine Type influenza, high dose seasonal 03/16/20160.5 mL 04/12/2017 influenza, injectable, quadrivalent 03/19/2018 influenza, injectable, quadrivalent, preservative free 03/01/2015 pneumococcal conjugate PCV 13 05/31/20151 mL 10/27/2018 pneumococcal polysaccharide PPV23 07/01/2002 Tdap 04/26/20160.5 mL zoster 08/30/20151 mL Social History Tobacco Smoking Status Never Smoker Past Encounters 02/17/2019 Posterior Rhinorrhea; Pain of Right Ankle Joint Sanjeev Reyes MD: [id number] [facility], [address], [place] [address], Ph. History of Present Illness Sore Throat Reported By: Patient Note: 6 months of throat irritation, raspy voice. No T. no face pain. dry cough occasional clear mucus no reflux Review of Systems Comprehensive Adult Problem ROS Reported By: Patient Constitutional: Constitutional: good appetite, no fever Eyes: Eyes: no eye redness, no eye discharge ENMT: ENMT: ear pain, sore throat, hoarseness Respiratory: Respiratory: cough Gastrointestinal: GI: no nausea Musculoskeletal: Musculoskeletal: no myalgia; on and off sharp pain right ankle old injury Skin: Skin: no rash Physical Exam General Adult Exam (male), Musculoskeletal and Joint Exam Reported By: Patient Constitutional: General Appearance: healthy-appearing, well-nourished, well-developed. Level of Distress: NAD Psychiatric: Mental Status: active and alert. Orientation: to time, to place Eyes: Lids and Conjunctivae: non-injected, no discharge, no pallor ENMT: Ears: EACs clear, TMs clear. Nose: nasal passages clear, deviated septum. Lips, Teeth, and Gums: no mouth or lip ulcers. Oropharynx: moist mucous membranes, no erythema, no exudates; clear mucoid discharge Neck: Neck: supple, no masses. Lymph Nodes: no cervical LAD, no supraclavicular LAD. Thyroid: no enlargement, non-tender, no nodules Lungs: Respiratory effort: no dyspnea. Auscultation: breath sounds normal, good air movement Musculoskeletal:: Right Ankle: ROM good, no objective synovitis, no tenderness , no warmth, no erythema, no pain on palpation Skin: Inspection and palpation: no rash
--- OUTSIDE RECORDS SUMMARY | 2019-03-14 18:45 | XMS REPORT | Encounter Summary ---
:1940 Author Care Team Providers Name Role Phone Dr. Albino Hancock Primary Care Provider [phone] Albino Hancock MD Primary Care Provider [phone] Rubi Hancock MD Social Media Strategist [phone] Ezequiel Husain Customer Records Division Supervisor [phone] Sandor Monae MD Steel Turner [phone] Reason for Visit fatigue; depression; memory loss; anxiety Instructions 1. Body mass index 20-24 - normal learning about healthy weight 2. Memory impairment neurology referral 3. Anxiety Discussion Note: None recorded. Plan of Care Reminders Provider Appointments Est Patient on or around Albino Patten 06/11/2019 MD Karissa Lab None recorded. Referral Neurology 03/12/2019 Aquilino Roa MD Referral Procedures None recorded. Surgeries None recorded. [...] 1 po tid escitalopram 5 mg tablet Take 1 tablet every day by oral route. fluticasone propionate 50 mcg/actuation nasal spray,suspension 2 puffs EN daily gabapentin 100 mg capsule Take 1 capsule as needed by oral route as needed for 90 [...] BMI Blood Pressure 5 ft 3.75 in 135.6 lbs 23.5 kg/m2 125/64 mm[Hg] Lab Results None recorded. Allergies Code [...] Tobacco Smoking Status Never Smoker Past Encounters 03/12/2019 Body Mass Index 20-24 - Normal; Memory Impairment; Anxiety Albino Hancock MD: [id number] [address], [place] [address] , Ph. 02/17/2019 Posterior Rhinorrhea; Pain of Right Ankle Joint Sanjeev Reyes MD: [id number], [address], [place] [address], Ph. History of Present Illness Note: c/o memory issue. feels anxious. daughter has made an nancy with a counselor and a neurologist. does have some family issue as well. denies any fever, chills or other symptom. Review of Systems Comprehensive Adult Problem ROS Reported By: Patient Constitutional: Constitutional: good appetite, normal activity level Cardiovascular: Cardiovascular: no chest pain Respiratory: Respiratory: no cough, no wheezing Gastrointestinal: GI: no abdominal pain, no nausea, no vomiting Neurological symptoms: Neuro: no weakness Physical Exam General Adult Exam (male) Reported By: Patient Constitutional: Level of Distress: NAD Psychiatric: Mental Status: active and alert Eyes: Lids and Conjunctivae: non-injected Lungs: Respiratory effort: no dyspnea Neurologic: Coordination and Cerebellum: no tremor
--- NOTE | 2019-03-14 19:34 | RAD REPORT ---
EXAM DESCRIPTION: RAD - Wrist Right 3 View - 03/14/2019 7:18 pm CLINICAL HISTORY: Right wrist pain status post injury FINDINGS: Impaction moderately displaced fracture distal radius. Avulsion fracture ulnar styloid process. No dislocation seen.
--- NOTE | 2019-03-14 19:36 | RAD REPORT ---
EXAM DESCRIPTION: RAD - Shoulder Right 2 View - 03/14/2019 7:18 pm CLINICAL HISTORY: Right shoulder pain status post fall FINDINGS: No fracture or dislocation is seen. Osteoporosis
[2019-03-14] MEDS ORDERED: FENTANYL CITR 100 MCG/2 ML ONE (19:42)
[2019-03-14] MEDS ORDERED: ONDANSETRON 4 MG/2 ML VIAL ONE (19:42)
[2019-03-14] MEDS ORDERED: NA CHLORIDE 0.9% 500 ML ONE (20:35)
[2019-03-14] MEDS ORDERED: PROPOFOL 200 MG/20 ML VIAL IV ONE (20:36)
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
[2019-03-14] MEDS ORDERED: METOPROLOL TAR 25 MG TAB ONE (22:06)
--- NOTE | 2019-03-14 22:06 | EDPHYS ---
Physician Documentation [facility] Name: Eneida Gee Age: 78 yrs Sex: Female : 1940 Arrival Date: 03/14/2019 Time: 18:35 Bed 17 Private MD: ED Physician Jan Mckinney HPI: 03/14 19:31 This 78 yrs old Female presents to ER via Ambulatory with complaints of Arm jr8 Injury, Wrist Injury. 19:31 The patient or guardian complains of deformity. The complaints affect the right wrist. jr8 Context: [place], on an outstretched hand. Onset: The symptoms/episode began/occurred just prior to arrival. Treatment prior to arrival includes: sling. Modifying factors: The symptoms are alleviated by nothing. the symptoms are aggravated by movement, bending arm. Associated signs and symptoms: The patient has no apparent associated signs or symptoms. Severity of symptoms: At their worst the symptoms were moderate, in the emergency department the symptoms are unchanged. The patient has not experienced similar symptoms in the past. The patient has not recently seen a physician. Historical: - Allergies: 18:50 No Known Allergies; sg - Home Meds: 18:50 None [Active]; sg - PMHx: 18:50 Hypertension; sg - Immunization history:: Adult Immunizations up to date. - Social history:: Smoking status: Patient/guardian denies using tobacco. - Ebola Screening: : Patient negative for fever greater than or equal to 101.5 degrees Fahrenheit, and additional compatible Ebola Virus Disease symptoms Patient denies exposure to infectious person Patient denies travel to an Ebola-affected area in the 21 days before illness onset No symptoms or risks identified at this time. ROS: 19:31 Constitutional: Negative for fever, chills, and weight loss, Eyes: Negative for injury, jr8 pain, redness, and discharge, ENT: Negative for injury, pain, and discharge, Neck: Negative for injury, pain, and swelling, Cardiovascular: Negative for chest pain, palpitations, and edema, Respiratory: Negative for shortness of breath, cough, wheezing, and pleuritic chest pain, Abdomen/GI: Negative for abdominal pain, nausea, vomiting, diarrhea, and constipation, Back: Negative for injury and pain, Skin: Negative for injury, rash, and discoloration, Psych: Negative for depression, anxiety, suicide ideation, homicidal ideation, and hallucinations. 19:31 MS/extremity: Positive for contusion, deformity, of the dorsal aspect of right wrist. Exam: 19:31 Constitutional: This is a well developed, well nourished patient who is awake, alert, jr8 and in no acute distress. Head/Face: Normocephalic, atraumatic. Eyes: Pupils equal round and reactive to light, extra-ocular motions intact. Lids and lashes normal. Conjunctiva and sclera are non-icteric and not injected. Cornea within normal limits. Periorbital areas with no swelling, redness, or edema. Neck: Trachea midline, no thyromegaly or masses palpated, and no cervical lymphadenopathy. Supple, full range of motion without nuchal rigidity, or vertebral point tenderness. No Meningismus. Chest/axilla: Normal chest wall appearance and motion. Nontender with no deformity. No lesions are appreciated. Cardiovascular: Regular rate and rhythm with a normal S1 and S2. No gallops, murmurs, or rubs. Normal PMI, no JVD. No pulse deficits. Respiratory: Lungs have equal breath sounds bilaterally, clear to auscultation and percussion. No rales, rhonchi or wheezes noted. No increased work of breathing, no retractions or nasal flaring. Abdomen/GI: Soft, non-tender, with normal bowel sounds. No distension or tympany. No guarding or rebound. No evidence of tenderness throughout. Back: No spinal tenderness. No costovertebral tenderness. Full range of motion. Skin: Warm, dry with normal turgor. Normal color with no rashes, no lesions, and no evidence of cellulitis. Neuro: Awake and alert, GCS 15, oriented to person, place, time, and situation. Cranial nerves II-XII grossly intact. Motor strength 5/5 in all extremities. Sensory grossly intact. Cerebellar exam normal. Normal gait. 19:31 Musculoskeletal/extremity: ROM: limited active range of motion due to pain, in the right wrist, limited passive range of motion due to pain, in the right wrist, Circulation is intact in all extremities. Sensation intact. Compartment Syndrome exam of affected extremity: the right wrist no numbness, no tingling, no sensation deficit, no palor, no weak pulses, Joints: the right wrist displays painful range of motion, swelling, tenderness. Vital Signs: 18:49 BP 133 / 72; Pulse 82; Resp 18; Temp 98.2; Pulse Ox 96% on R/A; Pain 7/10; sg 19:15 BP 199 / 65; Pulse 63; Resp 16; Pulse Ox 98% on R/A; jb4 20:15 BP 181 / 67; Pulse 67; Resp 14; Temp 98.6(O); Pulse Ox 98% on R/A; jb4 20:29 Weight 61.7 kg (M); rv 21:25 BP 190 / 61; Pulse 68; Resp 11; Pulse Ox 100% on 2 lpm NC; jb4 22:45 BP 176 / 73; Pulse 76; Resp 16; Pulse Ox 98% on R/A; jb4 Procedures: 21:40 Splinting: Splint applied to right wrist using Orthoglass splint, applied by myself. jr8 nurse. post reduction film - reveals improved alignment, Examined by me, post splint application: neurovascular intact, 2+ distal pulses palpable, brisk capillary refill noted, Patient tolerated well. 22:02 Moderate sedation: Pre-procedure assessment: the patient has been NPO 4 hour(s) prior jr8 to arrival, ASA physical classification: II - mild/mod systemic disease that does not interfere with daily routines, Airway assessment: able to hyperextend neck, able to maintain airway, can open mouth without difficulty, Mallampati classification of tongue size: II - faucial pillars and soft palate can be visualized, but uvula is masked by the base of the tongue, Monitoring during procedure: child monitor, continuous pulse oximetry, nurse at bedside at all times, Medications employed: propofol, Post-procedure assessment: the patient is moderately sedated, Wiseman sedation score: 5 - sluggish response to a light glabellar tap, Respiratory status: even and unlabored, a reversal agent was not used. MDM: 18:44 Patient medically screened. jr8 22:03 Data reviewed: vital signs, nurses notes, lab test result(s), radiologic studies, plain jr8 films. Data interpreted: Pulse oximetry: on room air is 100 %. Interpretation: normal. Counseling: I had a detailed discussion with the patient and/or guardian regarding: the historical points, exam findings, and any diagnostic results supporting the discharge/admit diagnosis, radiology results, the need for outpatient follow up, a orthopedic surgeon, to return to the emergency department if symptoms worsen or persist or if there are any questions or concerns that arise at home. Response to treatment: the patient's symptoms have markedly improved after treatment. 03/14 18:49 Order name: Wrist Right 3 View XRAY [facility] 03/14 18:49 Order name: Shoulder Right (2 View) XRAY [facility] 03/14 19:40 Order name: RAD; Complete Time: 20:00 EDMS 03/14 19:41 Order name: RAD; Complete Time: 20:00 EDMS 03/14 21:15 Order name: Wrist Right 2 View XRAY [facility] 03/14 19:20 Order name: IV; Complete Time: 19:32 [facility] 03/14 19:31 Order name: Conscious Sedation; Complete Time: 20:09 [facility] Administered Medications: 19:52 Drug: Zofran 4 mg Route: IVP; Site: left forearm; [facility] 21:25 Follow up: Response: No adverse reaction [facility] 19:55 Drug: fentaNYL (PF) 25 mcg {Note: Rass score of 0.} Route: IVP; Site: left forearm; 4 20:10 Follow up: Response: No adverse reaction; Pain is decreased; RASS: Alert and Calm (0) [facility] 21:00 Drug: Propofol 70 mg Route: IVP; Site: left forearm; jb4 21:25 Follow up: Response: No adverse reaction [facility] 21:00 Drug: NS 0.9% 500 ml Route: IV; Rate: bolus; Site: left forearm; 4 21:25 Follow up: Response: No adverse reaction; IV Status: Completed infusion; IV Intake: jb4 500ml 21:33 Drug: fentaNYL (PF) 25 mcg {Note: Rass score of 0.} Route: IVP; Site: left forearm; jb4 21:55 Follow up: Response: No adverse reaction; Pain is decreased; RASS: Alert and Calm (0) [facility] 22:07 Drug: Metoprolol 50 mg Route: PO; 4 22:07 Follow up: Response: RASS: Alert and Calm (0) [facility] Disposition: 03/14/19 22:04 Discharged to Home. Impression: Distal Radius Fracture, Ulnar Styloid Fracture. - Condition is Stable. - Discharge Instructions: Wrist Fracture Treated With ORIF. - Prescriptions for Tylenol- Codeine #3 300-30 mg Oral Tablet - take 2 tablet by ORAL route every 6 hours As needed; 30 tablet. - Medication Reconciliation Form, Thank You Letter, Antibiotic Education, Prescription Opioid Use form. - Follow up: Private Physician; When: 1 - 2 days; Reason: Recheck today's complaints, Continuance of care, Re-evaluation by your physician. - Problem is new. - Symptoms have improved. Addendum: 03/16/2019 09:04 Co-signature as Attending Physician, Jan Mckinney MD I agree with the assessment and k dr plan of care. Signatures: Dispatcher [employer] EDMS Timbo Tuttle RN RN Jan Mckinney MD MD [facility] Donaldo López PA PA jr8 Cholo Monroy RN RN jb4 Corrections: (The following items were deleted from the chart) 03/14 22:03 21:40 Splinting: Splint applied to right wrist using jr8 jr8 22:52 22:04 03/14/2019 22:04 Discharged to Home. Impression: Distal Radius Fracture; Ulnar jb4 Styloid Fracture. Condition is Stable. Forms are Medication Reconciliation Form, Thank You Letter, Antibiotic Education, Prescription Opioid Use. Follow up: Private Physician; When: 1 - 2 days; Reason: Recheck today's complaints, Continuance of care, Re-evaluation by your physician. Problem is new. Symptoms have improved. jr8
[2019-03-14 23:37] VITALS: TEMP 98.6
[2019-03-14 23:40] VITALS: BP 176/73; O2SAT 98
--- NOTE | 2019-03-15 11:32 | RAD REPORT ---
EXAM DESCRIPTION: RAD - Wrist Right 2 View - 03/14/2019 9:25 pm CLINICAL HISTORY: post-reduction Pain COMPARISON: Wrist Right 3 View dated 03/14/2019 FINDINGS: Comminuted intraarticular fracture of the distal radius and ulnar styloid avulsion fractur e has been reduced within a plaster splint. Bone detail is obscured.
== END 2019-03-14 22:52 | disposition home or self-care (01) ==
LOC: ER 18:31
PROC: 2W3CX1Z Immobilization of Right Lower Arm using Splint (ICD-10-PCS; principal; 2019-03-14)
DX: S52.502A Unspecified fracture of the lower end of left radius, initial encounter for closed fracture (principal); S52.612A Displaced fracture of left ulna styloid process, initial encounter for closed fracture; W19.XXXA Unspecified fall, initial encounter; Y93.9 Activity, unspecified; Y92.832 Beach as the place of occurrence of the external cause; I10 Essential (primary) hypertension
CPT/HCPCS: 73030; 73110; 73100; 96375; 96374; 99285; 29125; J2704; J3010; J2405